=== PATIENT | female | born 1935 | race Caucasian/White ===

== ENCOUNTER 2019-10-06 11:59 | Observation (INO) | payer MEDICARE, OTHER ==
[~2019-10-06] VITALS: Ht 160 cm; Wt 58.0 kg
--- OUTSIDE RECORDS SUMMARY | ~2019-10-06 | XMS | Clinical Summary ---
Demographics + + + | Address | [address] | | | [place] [address] | + + + | Home Phone | | + + + | Preferred Language | Unknown | + + + | Marital Status | Unknown | + + + | Anabaptism Affiliation | Unknown | + + + | Race | Unknown | + + + | Ethnic Group | Unknown | + + + Author + + + | Author | [facility] | | | and [place] | + + + | Organization | [facility] | | | and [place] | + + + | Address | Unknown | + + + | Phone | Unavailable | + + + Care Team Providers + +------+ + | Care Electrical Project Manager Name | Role | Phone | + +------+ + | Johnny Jones DO | YULIYA | | + +------+ + Allergies Not on File Medications Not on file Active Problems Not on file Social History + +-------+ +--------+------+ | Tobacco Use | Types | Packs/Day | Years | Date | | | | | Used | | + +-------+ +--------+------+ | Never Smoker | | | | | + +-------+ +--------+------+ + + + | Sex Assigned at | Date Recorded | | | | + + + | Not on file | | + + + + + + + | Job Start Date | Occupation | Industry | + + + + | Not on file | Not on file | Not on file | + + + + + + + + | Travel History | Travel Start | Travel End | + + + + + + | No recent travel history available. | + + Last Filed Vital Signs Not on file Plan of Treatment + + + + + | Health Maintenance | Due Date | Last Done | Comments | + + + + + | Vaccine: | | | | | Dtap/Tdap/Td (1 - | 6 | | | | Tdap) | | | | + + + + + | Vaccine: Zoster (1 | | | | | of 2) | 5 | | | + + + + + | Vaccine: | | | | | Pneumococcal 65+ (1 | 0 | | | | of 2 - PCV13) | | | | + + + + + | Vaccine: Influenza | | | | | (Season Ended) | 0 | | | + + + + + Results Not on filefrom Last 3 Months"
--- OUTSIDE RECORDS SUMMARY | ~2019-10-06 | XMS | Encounter Summary ---
Demographics + + + | Address | [address] | | | [place] [address] | + + + | Home Phone | | + + + | Preferred Language | Unknown | + + + | Marital Status | Unknown | + + + | Synagogue Affiliation | Unknown | + + + | Race | Unknown | + + + | Ethnic Group | Unknown | + + + Author + + + | Author | [facility] | | | and Bryceana | + + + | Organization | [facility] | | | and Bryceana | + + + | Address | Unknown | + + + | Phone | Unavailable | + + + Care Team Providers + +------+ + | Care Gang Head Saw Operator Name | Role | Phone | + +------+ + PCP | Unavailable | + +------+ + Encounter Details +--------+ + + + + | Date | Type | Department | Care Team | Description | +--------+ + + + + | 09/26/ | Hospital | [facility] | Galdino Almonte | Chest pain; Elevated | | 2013 - | Encounter | [facility] | Cuauhtemoc Armas MD [address] | troponin; | | | | CLINICAL DECISION | [address] | Hypokalemia; | | 09/27/ | | [address] | [place] [address] | Bilateral pleural | | 2013 | | [place], [place] | [phone] | effusion; Elevated | | | | [id number] | | LFTs; Hypertension; | | | | [phone] | | Hyperlipidemia; | | | | | | Hypothyroidism | +--------+ + + + + Social History + +-------+ +--------+------+ | Tobacco [...] recent travel history available. | + + documented as of this encounter Discharge Summaries Marvel Hemphill MD - 09/27/2013 5:25 PM PDTFormatting of this note might be differe nt from the original. Discharge Summaries by Marvel Hemphill MD at 09/27/13 1598 Author: Marvel Hemphill MD Service: Hospitalist Author Type: Physician Filed: 09/30/131849 Date of Service: 09/27/131724 Status: Signed [employer] Press Operator: Marvel Hemphill MD (Physician) Related Notes: Original Note by Marvel Hemphill MD (Physician) filed at 09/27/13 17 31 [facility] Service: Hospitalist Physician Discharge Summary Pt: Akua Brizuela AGE/SEX: 78 y.o. female ROOM: [address] [place], [place] [address] PCP: KASI WEST : 1935 Admit date: 09/26/2013 Discharge date and time: 09/27/2013 Admitting Physician: Galdino Almonte MD Discharge Physician: Marvel Hemphill MD Consults: Primary Discharge Diagnoses: Hypokalemia [276.8] Hyperlipidemia [272.4] Chest pain [786.50] Hypothyroidism [244.9] Hypertension [401.9] Elevated troponin [790.6] Elevated LFTs [790.6] Bilateral pleural effusion [511.9] Secondary Discharge Diagnoses: Troponin leak. Chronic LBBB Discharged Condition: stable Significant Diagnostic Studies: Nuclear Medicine: Negative for ischemia. HPI and Hospital Course: Ms. Brizuela is a very pleasant 78-year-old female who has history of hypothyroidism, hype rtension, hyperlipidemia, was initially admitted to [facility] for Escherichia col i sepsis due to pyelonephritis. She was also diagnosed as having pneumonia. Patient was disc harged yesterday from the hospital after she stayed for 5 days. Yesterday while at home, she was eating yogurt and started having chest pain. She went to [facility] emergency department of [facility], where she was found to have elevated tropon in of 0.58 and EKG showed chronic left bundle branch block. CT of chest was also done that w as negative for pulmonary embolism or pneumonia. As [facility], hence patient was transferred and [facility]. HOSPITAL COURSE Patient remained chest pain free, and her troponin showed downward trend. EKG also showed l eft bundle branch block, but according to patient it was chronic in nature. She underwent nu clear medicine stress test today that did not show any evidence of ischemia. Echocardiogram was also done. That report is pending at the time of discharge, but patient does not have an y evidence of congestive heart failure or valvular heart disease on physical examination. As patient is stable now, hence she will be discharged home to be followed by her primary care physician next Wednesday. Borderline elevation of troponin was thought to be due to troponin l eak and not due to IA. Patient has history of hypertension and hyperlipidemia, but somehow her antihypertensives a nd anticholesterol medications were discontinued while she was at [facility]. I sutton ve advised her to follow her primary care physician for those problems and he may resume her regular medications for blood pressure and for high cholesterol. I have advised her to cont inue with low-dose aspirin. Discharge Vitals: Filed Vitals: 09/26/13 2259 09/27/13 0305 09/27/13 1133 09/27/13 1613 BP: 146/70 142/71 135/65 168/81 Pulse: 72 76 70 85 Temp: 98.6 F (37 C) 98.6 F (37 C) 98.8 F (37.1 C) 98.8 F (37.1 C) TempSrc: Oral Oral Oral Oral Resp: 18 16 16 18 Height: Weight: SpO2: 92% 91% 94% 96% Discharge Exam: Constitutional: Alert and oriented to person, place, and time. Appears well-developed and w ell-nourished. Cardiovascular: Normal rate, regular rhythm, normal heart sounds with S1 and S2 and intact distal pulses. Exam reveals no gallop and no friction rub. No murmur heard. Pulmonary/Chest: Effort normal and breath sounds normal. No stridor. No respiratory distres s. no wheezes. no rales. exhibits no tenderness. Abdominal: Soft. Bowel sounds are normal. exhibits no distension and no mass. There is no t enderness. There is no rebound and no guarding. Musculoskeletal: Normal range of motion.exhibits no tenderness. exhibits no edema. Neurological: Alert and oriented to person, place, and time. Has normal reflexes. display s normal reflexes. No cranial nerve deficit. Exhibits normal muscle tone. Coordination norm al. Skin: Skin is warm and dry. No rash noted. No erythema. No pallor. Psychiatric: Has a normal mood and affect. Behavior is normal. Judgment normal. LABS: Lab 09/27/13 0509/26/13 1310 WBC 10.8 10.3 HGB 11.4 12.2 HCT 32.3* 36.4 PLT 306 339 NEUTOPHILPCT 85.0 82.6 MONOPCT 6.4 4.8 Lab 09/27/13 0520 09/26/13 1310 NA 139 141 K 3.4* 3.2* CL 105 105 CO2 27 25 BUN 8 8 CREATININE 0.92 0.96 CALCIUM -- -- PROT -- 6.7 BILITOT -- 0.5 ALKPHOS -- -- ALT -- 103* AST -- 57* GLUCOSE -- -- No components found with this basename: LABALBU:3 Lab 09/27/13 0520 09/26/13 1310 MG 1.8 2.7* No results found for this basename: AMYLASE:3 in the last 168 hours No results found for this basename: PHART:3,PO2ART:3,UIN2BYT:3,C0KTYRRD:3,BEART:[address] 168 hours Lab 09/27/13 0520 09/26/13 1310 APTT 28 33* INR 1.1 1.1 PTT -- -- Lab 09/27/13 0745 09/27/13 0021 09/26/13 1310 CKTOTAL -- -- 79 TROPONINI 0.098 0.149* 0.226* TROPONINT -- -- -- CKMBINDEX -- -- 4.2 Disposition: Final discharge disposition not confirmed Patient Instructions: Medication List As of 09/27/2013 5:25 PM CONTINUE taking these medications alendronate 70 MG tablet Refills: 0 Commonly known as: FOSAMAX ascorbic acid 500 MG tablet Refills: 0 Commonly known as: VITAMIN C aspirin 81 MG EC tablet Refills: 0 B complex vitamins tablet Refills: 0 cephALEXin 500 MG capsule Refills: 0 Commonly known as: KEFLEX Cholecalciferol 26841 UNITS Tabs Refills: 0 fish oil-omega-3 fatty acids 1000 MG capsule Refills: 0 levothyroxine 50 MCG tablet Refills: 0 Commonly known as: SYNTHROID multivitamin tablet Refills: 0 Activity: activity as tolerated Diet: cardiac diet Wound Care: not applicable Total time of discharge: 35 minutes. This included talking to patient, examining patient, d iscussing outpatient plan of care, reconciling home medications and dictating discharge summ payton. Follow-up with PCP in 5 days Signed: Marvel Hemphill MD 09/27/2013 5:25 PM documented in this encounter Progress Notes Conversion Transaction, Provider Unknown - 09/27/2013 5:53 PM PDTFormatting of this note m ight be different from the original. Progress Notes by Catherine Moncada RN at 09/27/131752 Author: Catherine Moncada RN Service: (none) Author Type: Registered Nurse Filed: 09/27/13 8264 Date of Service: 09/27/131752 Status: Signed [employer] Operator: Catherine Moncada RN (Registered Nurse) D/c instructions given and discussed, pt. States understanding. daughter providing transpor tation home. Pt. To f/u with pcp on Wednesday. Catherine Moncada RN onver deborah Transaction, Provider Unknown - 09/27/2013 2:53 PM PDT Case Management by GIN Suh at 09/27/13 2272 Author: GIN Suh Service: (none) Author Type: Hand Ii Cutter Filed: 09/27/13 5104 Date of Service: 09/27/13 1453 Status: Signed [employer] Operator: GIN Suh (Hand Ii Cutter) 09/27/13 1400 Discharge Planning Evaluation Admitting Diagnosis (Atypical chest pain) Readmission No Living Arrangements Spouse/significant other Support Systems Spouse/significant other Type of Residence Private residence House type House-1 story Steps to enter 5 Bathrooms on 1st Floor 1-Full Independent with ADL's Yes Independent with Mobility Yes Home Care Services No Caregiver after Discharge No Mental Status Oriented Anticipated Discharge Plan Plan communicated to patient/family Yes Resources Financial concerns No Transportation issues No Patient/Family concerns No Prescription Plan Yes Met with pt and discussed discharge planning, Pt is a 78 y.o., female admitted with Atypic al chest pain. Will continue to provide care as needed and plan for DC. Patient's PCP is: KASI WEST Patient's insurance: Medicare. Coverage concerns: No Medication coverage/concerns: No Community resources utilized / needed: No Assistance in transportation: Pt's SO will assist transporting pt home. Identification of any specific education / training: N/A Barriers to Discharge / Alternative housing needed: N/A Anticipated DCP: Pt will return to [place] prior living [place] with SO. Suma Jeter onver deborah Transaction, Provider Unknown - 09/26/2013 8:16 PM PDT Progress Notes by Mirella Currie RPH at 09/26/132015 Author: Mirella Currie RPH Service: (none) Author Type: Pharmacist Filed: 09/26/132015 Date of Service: 09/26/132015 Status: Signed [employer] Operator: Mirella Currie RPH (Pharmacist) Clinical Pharmacy Note: Renal Monitoring Akua Brizuela 78 y.o. female Ht Readings from Last 1 Encounters: 09/26/13 1.6 m (5' 3") Wt Readings from Last 1 Encounters: 09/26/13 54.432 kg (120 lb) CREATININE: 0.96 (09/26/13 1310) Estimated creatinine clearance - Cockcroft-Gault CrCl: 39.3 mL/min Pharmacy dosing for renal function per Dr. Almonte. Will order the following dosage adjustments: Pepcid 20 mg IV/PO Q24H Pharmacy will continue to monitor for changes in medication orders and in renal function an d adjust accordingly. Mirella Currie RPh 09/26/2013 8:16 PM onver deborah Transaction, Provider Unknown - 09/26/2013 7:06 PM PDT Case Management by GIN Monteiro at 09/26/131905 Author: GIN Monteiro Service: (none) Author Type: Weigher And Mixer Filed: 09/26/131905 Date of Service: 09/26/131905 Status: Signed [employer] Operator: GIN Monteiro (Weigher And Mixer) Cm attempted to meet with patient; pt asleep and unable to answer questions. F/U with famil y when they are back at hospital. onver deborah Transaction, Provider Unknown - 09/26/2013 3:43 PM PDT Progress Notes by Mirella Currie RPH at 09/26/13 1543 Author: Mirella Currie RPH Service: (none) Author Type: Pharmacist Filed: 09/26/13 154 Date of Service: 09/26/131542 Status: Signed [employer] Operator: Mirella Currie RPH (Pharmacist) Clinical Pharmacy Note: Renal Monitoring Akua Brizuela 78 y.o. female Ht Readings from Last 1 Encounters: 09/26/13 1.6 m (5' 3") Wt Readings from Last 1 Encounters: 09/26/13 54.432 kg (120 lb) CREATININE: 0.96 (09/26/13 1310) Estimated creatinine clearance - Cockcroft-Gault CrCl: 39.3 mL/min Pharmacy dosing for renal function per Dr. Cordon. Currently, there are no medications needing to be adjusted. Pharmacy will continue to monit or for changes in medication orders and in renal function and adjust accordingly. Mirella Currie RPh 09/26/2013 3:43 PM docume nted in this encounter Plan of Treatment Not on filedocumented as of this encounter Procedures + +--------+ + + + | Procedure Name | Priori | Date/Time | Associated Diagnosis | Comments | | | ty | | | | + +--------+ + + + | NM MYOCARDIAL | Routin | 09/27/2013 | | Results for this | | PERFUSION MULT SPECT | e | 4:07 PM | | procedure are in the | | | | PDT | | results section. | + +--------+ + + + | TROPONIN I | Routin | 09/27/2013 | | Results for this | | | e | 7:45 AM | | procedure are in the | | | | PDT | | results section. | + +--------+ + + + | ECG 12 LEAD | Routin | 09/27/2013 | | Results for this | | | e | 7:36 AM | | procedure are in the | | | | PDT | | results section. | + +--------+ + + + | ECHO COMPLETE | Routin | 09/27/2013 | | Results for this | | | e | 7:09 AM | | procedure are in the | | | | PDT | | results section. | + +--------+ + + + | EXTERNAL LAB: CBC | Routin | 09/27/2013 | | Results for this | | | e | 5:20 AM | | procedure are in the | | | | PDT | | results section. | + +--------+ + + + | PTT | Routin | 09/27/2013 | | Results for this | | | e | 5:20 AM | | procedure are in the | | | | PDT | | results section. | + +--------+ + + + | PROTIME INR | Routin | 09/27/2013 | | Results for this | | | e | 5:20 AM | | procedure are in the | | | | PDT | | results section. | + +--------+ + + + | PHOSPHORUS | Routin | 09/27/2013 | | Results for this | | | e | 5:20 AM | | procedure are in the | | | | PDT | | results section. | + +--------+ + + + | MAGNESIUM | Routin | 09/27/2013 | | Results for this | | | e | 5:20 AM | | procedure are in the | | | | PDT | | results section. | + +--------+ + + + | BASIC METABOLIC | Routin | 09/27/2013 | | Results for this | | PANEL | e | 5:20 AM | | procedure are in the | | | | PDT | | results section. | + +--------+ + + + | TROPONIN I | Routin | 09/27/2013 | | Results for this | | | e | 12:21 AM | | procedure are in the | | | | PDT | | results section. | + +--------+ + + + | XR CHEST 1 VIEW | Routin | 09/26/2013 | | Results for this | | | e | 10:44 PM | | procedure are in the | | | | PDT | | results section. | + +--------+ + + + | URINALYSIS, REFLEX | Routin | 09/26/2013 | | Results for this | | MICROSCOPIC AND/OR | e | 9:54 PM | | procedure are in the | | CULTURE | | PDT | | results section. | + +--------+ + + + | URINALYSIS, | Routin | 09/26/2013 | | Results for this | | MICROSCOPIC ONLY | e | 9:54 PM | | procedure are in the | | | | PDT | | results section. | + +--------+ + + + | CT ANGIOGRAM | Routin | 09/26/2013 | | Results for this | | PULMONARY | e | 2:30 PM | | procedure are in the | | | | PDT | | results section. | + +--------+ + + + | ECG 12 LEAD | Routin | 09/26/2013 | | Results for this | | | e | 1:12 PM | | procedure are in the | | | | PDT | | results section. | + +--------+ + + + | HISTORICAL LAB PANEL | Routin | 09/26/2013 | | Results for this | | RESULT | e | 1:10 PM | | procedure are in the | | | | PDT | | results section. | + +--------+ + + + | TROPONIN I | Routin | 09/26/2013 | | Results for this | | | e | 1:10 PM | | procedure are in the | | | | PDT | | results section. | + +--------+ + + + | D-DIMER | Routin | 09/26/2013 | | Results for this | | | e | 1:10 PM | | procedure are in the | | | | PDT | | results section. | + +--------+ + + + | PHOSPHORUS | Routin | 09/26/2013 | | Results for this | | | e | 1:10 PM | | procedure are in the | | | | PDT | | results section. | + +--------+ + + + | B TYPE NATRIURETIC | Routin | 09/26/2013 | | Results for this | | PEPTIDE | e | 1:10 PM | | procedure are in the | | | | PDT | | results section. | + +--------+ + + + | MAGNESIUM | Routin | 09/26/2013 | | Results for this | | | e | 1:10 PM | | procedure are in the | | | | PDT | | results section. | + +--------+ + + + documented in this encounter Results NM Myocardial Perfusion Mult SPECT (09/27/2013 4:07 PM PDT) + + | Specimen | + + | | + + + + + | Impressions | Performed At | + + + | 1. No evidence of ischemia with pharmacologic stress. | | | | | + + + + + + | Narrative | Performed At | + + + | AKUA SCHMID MYOCARDIAL PERFUSION SPECT - STRESS AND REST | | | 09/27/2013 4:07 PM HISTORY: Chest pain. TECHNIQUE: The | | | patient was given pharmacologic stress with Amy scan under the | | | direction of the mid-level provider. At peak stress there are given 40 | | | mCi of technetium 99m Myoview IV and that was followed by cardiac | | | SPECT imaging. Prior to the stress test a resting cardiac SPECT | | | study was performed following the IV administration of 10 mCi of | | | technetium 99m Myoview. FINDINGS: No prior comparison. The | | | estimated left ventricular ejection fraction is 54% at rest and 60% | | | with stress. There is mildly heterogeneous uptake without suspicious | | | fixed or reversible defect. | | + + + + -------+ | Procedure Note | + -------+ | Mike Pollock Conversion - 12/16/2018 3:38 PM PDT AKUA GOLD MYOCARDIAL | | PERFUSION SPECT - STRESS AND REST09/27/2013 4:07 PM HISTORY:Chest pain. TECHNIQUE:The | | patient was given pharmacologic stress with Amy scan under the direction of the | | mid-level provider. At peak stress there are given 40 mCi of technetium 99m Myoview IV | | and that was followed by cardiac SPECT imaging. Prior to the stress test a resting | | cardiac SPECT study was performed following the IV administration of 10 mCi of | | technetium 99m Myoview. FINDINGS:No prior comparison. The estimated left ventricular | | ejection fraction is 54% at rest and 60% with stress. There is mildly heterogeneous | | uptake without suspicious fixed or reversible defect. IMPRESSION: 1. No evidence of | | ischemia with pharmacologic stress. Electronically signed by Ronny Marino MD on | | 09/27/2013 4:20 PM | | | |FINDINGS: | |No prior comparison. The estimated left ventricular ejection fraction is 54% at rest and 60 % with stress. There is mildly heterogeneous uptake without suspicious fixed or reversible d efect. | | | |IMPRESSION: | |1. No evidence of ischemia with pharmacologic stress. | | | | | + -------+ Troponin I (09/27/2013 7:45 AM PDT) + + + + + + | Component | Value | Ref Range | Performed | Pathologist | | | | | At | Signature | + + + + + + | Troponin I, | 0.098Comment: 0.00 to | 0.00 - 0.10 | EXTERNAL | | | Qual | 0.10 CONSISTENT WITH | ng/mL | LAB | | | | NORMAL POPULATION0.11 to | | | | | | 0.60 CONSISTENT WITH | | | | | | INCREASED RISK FOR | | | | | | ADVERSE OUTCOMES> 0.60 | | | | | | CONSISTENT | | | | | | WITH WHO CRITERIA FOR | | | | | | ACUTE IA Testing | | | | | | performed at [facility];[id number] | | | [address];[place], [place] | | | | | | [address] | | | | + + + + + + + + | Specimen | + + | Blood specimen | | (specimen) | + + + +---------+ + + | Performing | Address | City/State/Zipcode | Phone Number | | Organization | | | | + +---------+ + + | EXTERNAL LAB | | | | + +---------+ + + ECG 12 lead (09/27/2013 7:36 AM PDT) + + + + + + | Component | Value | Ref Range | Performed | Pathologist | | | | | At | Signature | + + + + + + | DIAGNOSIS: | Normal sinus rhythmLeft | | EXTERNAL | | | | bundle branch | | LAB | | | | blockAbnormal ECGWhen | | | | | | compared with ECG of | | | | | | 26-SEP-2013 13:12,QT has | | | | | | shortenedConfirmed by | | | | | | DELROY JENSEN ([id number]) on | | | | | | 09/29/2013 8:08:06 PM | | | | + + + + + + + + | Specimen | + + | | + + + + + | Narrative | Performed At | + + + | Historically converted procedure from [employer] environment | EXTERNAL LAB | + + + + +---------+ + + | Performing | Address | City/State/Zipcode | Phone Number | | Organization | | | | + +---------+ + + | EXTERNAL LAB | | | | + +---------+ + + ECHO Complete (09/27/2013 7:09 AM PDT) + + | Specimen | + + | | + + + + + | Impressions | Performed At | + + + | 1. Overall left ventricular systolic function is normal with, an EF | | | between 55 - 60 %. 2. The diastolic filling pattern indicates | | | impaired relaxation consistent with mild dysfunction (Grade I). 3. | | | There is no evidence of pulmonary hypertension. | | + + + + + + | Narrative | Performed At | + + + | Patient Name: AKUA BRIZUELA Date of : 1935 | | | Performing Physician: Delroy Jensen MD | | | | | | INDICATIONS abnormal ekg CONCLUSIONS | | | 1. Overall left ventricular systolic function is normal with, an EF | | | between 55 - 60 %. 2. The diastolic filling pattern indicates | | | impaired relaxation consistent with mild dysfunction (Grade I). 3. | | | There is no evidence of pulmonary hypertension. FINDINGS -------- | | | ECG rhythm: Sinus rhythm. Study: A 2-dimensional transthoracic | | | echocardiogram with m-mode, spectral and color flow Doppler was | | | perfomed. Study: This was a technically adequate study. Left | | | Ventricle: Overall left ventricular systolic function is normal with, | | | an EF between 55 - 60 %. Left Ventricle: The left ventricle cavity | | | size is normal. Left Ventricle: There is mild concentric left | | | ventricular hypertrophy. Left Ventricle: No regional wall motion | | | abnormalities. Left Ventricle: The diastolic filling pattern | | | indicates impaired relaxation consistent with mild dysfunction (Grade | | | I). Right Ventricle: The right ventricle is normal in size. Left | | | Atrium: The left atrial size is normal. Right Atrium: The right | | | atrial size is normal. Aortic Valve: Aortic valve is trileaflet and | | | is mildly thickened. Aortic Valve: There is mild aortic valve | | | sclerosis without stenosis. Aortic Valve: Trace amount of aortic | | | regurgitation. Mitral Valve: The mitral valve is normal. Mitral | | | Valve: There is trace mitral regurgitation. Tricuspid Valve: The | | | tricuspid valve appears structurally normal. Tricuspid Valve: Mild | | | tricuspid regurgitation present. Tricuspid Valve: There is no | | | evidence of pulmonary hypertension. Tricuspid Valve: The right | | | ventricular systolic pressure (pulmonary artery systolic pressure), as | | | measured by Doppler, is 26.28mmHg. Pulmonic Valve: The pulmonic | | | valve was not well visualized. Pulmonic Valve: Trace pulmonic | | | regurgitation. Pericardium: There is a small , generalized | | | pericardial effusion present. IVC/Hepatic Veins: The IVC is small | | | (<1.5cm) and collapses with sniff, consistent with central venous | | | pressures of 0-5mmHg. Aorta: The aortic root, ascending aorta are | | | normal. Pulmonary Veins: The flow patterns, measured by Doppler, | | | appear normal. Septum: Mobile interatrial septum. MEASUREMENTS | | | Ao asc: 3.10 cm Ao Diam: 2.92 cm IVC: 1.52 | | | cm LA Diam: 3.44 cm LA Major: 3.72 cm EDV(Teich): 52.96 ml | | | IVSd: 1.06 cm LVIDd: 3.55 cm LVPWd: 1.23 cm LVOT Diam: | | | 1.92 cm %FS: 31.14 % EF(Teich): 59.90 % ESV(Teich): | | | 21.23 ml IVSs: 1.17 cm LVIDs: 2.45 cm LVPWs: 1.52 cm | | | SV(Teich): 31.72 ml RA Major: 4.11 cm RVIDd: 2.82 cm LVEF | | | MOD A2C: 60.07 % SV MOD A2C: 37.58 ml LVEF MOD A4C: 55.74 % | | | SV MOD A4C: 41.44 ml EF Biplane: 57.84 % LVEDV MOD BP: | | | 69.04 ml LVESV MOD BP: 29.10 ml LVEDV MOD A2C: 62.55 ml LVLd | | | A2C: 6.95 cm LVEDV MOD A4C: 74.35 ml LVLd A4C: 6.71 cm | | | LVESV MOD A2C: 24.97 ml LVLs A2C: 5.99 cm LVESV MOD A4C: | | | 32.90 ml LVLs A4C: 5.59 cm Ao Diam: 2.97 cm AV Cusp: 1.85 | | | cm LA Diam: 3.21 cm LA/Ao: 1.08 D-E Excursion: 1.18 cm | | | E-F Mobile: 0.03 m/s EPSS: 0.36 cm HR: 68 BPM AV maxPG: | | | 7.05 mmHg AV meanP.51 mmHg AV Vmax: 1.32 m/s AV Vmean: | | | 1.02 m/s AV VTI: 30.57 cm LAURIE Vmax: 2.69 cm2 LAURIE (VTI): | | | 2.43 cm2 LVCI Dopp: 3.22 l/minm2 LVCO Dopp: 5.09 l/min HR: | | | 68.53 BPM LVOT maxP.07 mmHg LVOT meanP.11 mmHg LVSI | | | Dopp: 47.03 ml/m2 LVSV Dopp: 74.31 ml LVOT Vmax: 1.23 m/s | | | LVOT Vmean: 0.82 m/s LVOT VTI: 25.58 cm MCO: 539.79 ms MV | | | A Jonathan: 1.04 m/s MV DecT: 193.27 ms MV E Jonathan: 0.50 m/s MV | | | E/A Ratio: 0.48 MV PHT: 53.72 ms MVA By PHT: 4.09 cm2 MV A | | | Dur: 103.80 ms IVRT: 176.47 ms Septal e': 0.03 m/s Septal | | | E/e': 14.72 P Vein A: 0.35 m/s P Vein A Dur: 96.88 ms P | | | Vein D: 0.54 m/s P Vein S/D Ratio: 1.14 P Vein S: 0.62 m/s | | | HR: 69.55 BPM PV maxP.13 mmHg PV meanP.56 mmHg PV | | | Vmax: 0.88 m/s PV Vmean: 0.60 m/s PV VTI: 19.95 cm RAP: | | | 5 mmHg RVSP: 26.27 mmHg TR maxP.27 mmHg TR Vmax: | | | 2.30 m/s TV A Jonathan: 0.20 m/s TV Dec Mobile: 4.63 m/s2 TV Dec | | | Time: 81.78 ms TV E Jonathan: 0.37 m/s TV E/A Ratio: 1.85 | | | Contour Stitcher: EDILMA Authenticated by: Delroy Jensen MD Report Date/Time: | | | 09-28-2013 06:23:05 | | + + + + + | Procedure Note | + + | Mike Pollock Conversion - 12/16/2018 3:38 PM PDT Patient Name: Anuja BRIZUELA | | of : 1935 Performing Physician: Delroy Jensen | | MD INDICATIONS a | | bnormal ekg CONCLUSIONS 1. Overall left ventricular systolic function is | | normal with, an EF between 55 - 60 %.2. The diastolic filling pattern indicates impaired | | relaxation consistent with mild dysfunction (Grade I).3. There is no evidence of | | pulmonary hypertension. FINDINGS--------ECG rhythm: Sinus rhythm.Study: A 2-dimensional | | transthoracic echocardiogram with m-mode, spectral and color flow Doppler was | | perfomed.Study: This was a technically adequate study.Left Ventricle: Overall left | | ventricular systolic function is normal with, an EF between 55 - 60 %.Left Ventricle: | | The left ventricle cavity size is normal.Left Ventricle: There is mild concentric left | | ventricular hypertrophy.Left Ventricle: No regional wall motion abnormalities.Left | | Ventricle: The diastolic filling pattern indicates impaired relaxation consistent with | | mild dysfunction (Grade I).Right Ventricle: The right ventricle is normal in size.Left | | Atrium: The left atrial size is normal.Right Atrium: The right atrial size is | | normal.Aortic Valve: Aortic valve is trileaflet and is mildly thickened.Aortic Valve: | | There is mild aortic valve sclerosis without stenosis.Aortic Valve: Trace amount of | | aortic regurgitation.Mitral Valve: The mitral valve is normal.Mitral Valve: There is | | trace mitral regurgitation.Tricuspid Valve: The tricuspid valve appears structurally | | normal.Tricuspid Valve: Mild tricuspid regurgitation present.Tricuspid Valve: There is | | no evidence of pulmonary hypertension.Tricuspid Valve: The right ventricular systolic | | pressure (pulmonary artery systolic pressure), as measured by Doppler, is | | 26.28mmHg.Pulmonic Valve: The pulmonic valve was not well visualized.Pulmonic Valve: | | Trace pulmonic regurgitation.Pericardium: There is a small , generalized pericardial | | effusion present.IVC/Hepatic Veins: The IVC is small (<1.5cm) and collapses with sniff, | | consistent with central venous pressures of 0-5mmHg.Aorta: The aortic root, ascending | | aorta are normal.Pulmonary Veins: The flow patterns, measured by Doppler, appear | | normal.Septum: Mobile interatrial septum. MEASUREMENTS Ao asc: 3.10 cmAo | | Diam: 2.92 cmIVC: 1.52 cmLA Diam: 3.44 cmLA Major: 3.72 cmEDV(Teich): 52.96 | | mlIVSd: 1.06 cmLVIDd: 3.55 cmLVPWd: 1.23 cmLVOT Diam: 1.92 cm%FS: 31.14 | | %EF(Teich): 59.90 %ESV(Teich): 21.23 mlIVSs: 1.17 cmLVIDs: 2.45 cmLVPWs: 1.52 | | cmSV(Teich): 31.72 mlRA Major: 4.11 cmRVIDd: 2.82 cmLVEF MOD A2C: 60.07 %SV MOD | | A2C: 37.58 mlLVEF MOD A4C: 55.74 %SV MOD A4C: 41.44 mlEF Biplane: 57.84 %LVEDV | | MOD BP: 69.04 mlLVESV MOD BP: 29.10 mlLVEDV MOD A2C: 62.55 mlLVLd A2C: 6.95 | | cmLVEDV MOD A4C: 74.35 mlLVLd A4C: 6.71 cmLVESV MOD A2C: 24.97 mlLVLs A2C: 5.99 | | cmLVESV MOD A4C: 32.90 mlLVLs A4C: 5.59 cmAo Diam: 2.97 cmAV Cusp: 1.85 cmLA | | Diam: 3.21 cmLA/Ao: 1.08D-E Excursion: 1.18 cmE-F Mobile: 0.03 m/sEPSS: 0.36 | | cmHR: 68 BPMAV maxP.05 mmHgAV meanP.51 mmHgAV Vmax: 1.32 m/Eduardo Vmean: | | 1.02 m/Eduardo VTI: 30.57 cmAVA Vmax: 2.69 cm2AVA (VTI): 2.43 [id number] Dopp: 3.22 | | l/[id number] Dopp: 5.09 l/minHR: 68.53 BPMLVOT maxP.07 mmHgLVOT meanP.11 | | mmHgLVSI Dopp: 47.03 ml/m2LVSV Dopp: 74.31 mlLVOT Vmax: 1.23 m/sLVOT Vmean: 0.82 | | m/sLVOT VTI: 25.58 cmMCO: 539.79 msMV A Jonathan: 1.04 m/sMV DecT: 193.27 msMV E | | Jonathan: 0.50 m/sMV E/A Ratio: 0.48MV PHT: 53.72 msMVA By PHT: 4.09 cm2MV A Dur: | | 103.80 msIVRT: 176.47 msSeptal e': 0.03 m/sSeptal E/e': 14.72P Vein A: 0.35 m/sP | | Vein A Dur: 96.88 msP Vein D: 0.54 m/sP Vein S/D Ratio: 1.14P Vein S: 0.62 | | m/sHR: 69.55 BPMPV maxP.13 mmHgPV meanP.56 mmHgPV Vmax: 0.88 m/sPV | | Vmean: 0.60 m/sPV VTI: 19.95 cmRAP: 5 mmHgRVSP: 26.27 mmHgTR maxP.27 | | mmHgTR Vmax: 2.30 m/sTV A Jonathan: 0.20 m/sTV Dec Mobile: 4.63 m/s2TV Dec Time: 81.78 | | msTV E Jonathan: 0.37 m/sTV E/A Ratio: 1.85 Contour Stitcher: GDAuthenticated by: Delroy | | Alqaisi MDReport Date/Time: 09-28-2013 06:23:05 IMPRESSION: 1. Overall left ventricular | | systolic function is normal with, an EF between 55 - 60 %.2. The diastolic filling | | pattern indicates impaired relaxation consistent with mild dysfunction (Grade I).3. | | There is no evidence of pulmonary hypertension. | |LA Diam: 3.44 cm | |LA Major: 3.72 cm | |EDV(Teich): 52.96 ml | |IVSd: 1.06 cm | |LVIDd: 3.55 cm | |LVPWd: 1.23 cm | |LVOT Diam: 1.92 cm | |%FS: 31.14 % | |EF(Teich): 59.90 % | |ESV(Teich): 21.23 ml | |IVSs: 1.17 cm | |LVIDs: 2.45 cm | |LVPWs: 1.52 cm | |SV(Teich): 31.72 ml | |RA Major: 4.11 cm | |RVIDd: 2.82 cm | |LVEF MOD A2C: 60.07 % | |SV MOD A2C: 37.58 ml | |LVEF MOD A4C: 55.74 % | |SV MOD A4C: 41.44 ml | |EF Biplane: 57.84 % | |LVEDV MOD BP: 69.04 ml | |LVESV MOD BP: 29.10 ml | |LVEDV MOD A2C: 62.55 ml | |LVLd A2C: 6.95 cm | |LVEDV MOD A4C: 74.35 ml | |LVLd A4C: 6.71 cm | |LVESV MOD A2C: 24.97 ml | |LVLs A2C: 5.99 cm | |LVESV MOD A4C: 32.90 ml | |LVLs A4C: 5.59 cm | |Ao Diam: 2.97 cm | |AV Cusp: 1.85 cm | |LA Diam: 3.21 cm | |LA/Ao: 1.08 | |D-E Excursion: 1.18 cm | |E-F Mobile: 0.03 m/s | |EPSS: 0.36 cm | |HR: 68 BPM | |AV maxP.05 mmHg | |AV meanP.51 mmHg | |AV Vmax: 1.32 m/s | |AV Vmean: 1.02 m/s | |AV VTI: 30.57 cm | |LAURIE Vmax: 2.69 cm2 | |LAURIE (VTI): 2.43 cm2 | |LVCI Dopp: 3.22 l/minm2 | |LVCO Dopp: 5.09 l/min | |HR: 68.53 BPM | |LVOT maxP.07 mmHg | |LVOT meanP.11 mmHg | |LVSI Dopp: 47.03 ml/m2 | |LVSV Dopp: 74.31 ml | |LVOT Vmax: 1.23 m/s | |LVOT Vmean: 0.82 m/s | |LVOT VTI: 25.58 cm | |MCO: 539.79 ms | |MV A Jonathan: 1.04 m/s | |MV DecT: 193.27 ms | |MV E Jonathan: 0.50 m/s | |MV E/A Ratio: 0.48 | |MV PHT: 53.72 ms | |MVA By PHT: 4.09 cm2 | |MV A Dur: 103.80 ms | |IVRT: 176.47 ms | |Septal e': 0.03 m/s | |Septal E/e': 14.72 | |P Vein A: 0.35 m/s | |P Vein A Dur: 96.88 ms | |P Vein D: 0.54 m/s | |P Vein S/D Ratio: 1.14 | |P Vein S: 0.62 m/s | |HR: 69.55 BPM | |PV maxP.13 mmHg | |PV meanP.56 mmHg | |PV Vmax: 0.88 m/s | |PV Vmean: 0.60 m/s | |PV VTI: 19.95 cm | |RAP: 5 mmHg | |RVSP: 26.27 mmHg | |TR maxP.27 mmHg | |TR Vmax: 2.30 m/s | |TV A Jonathan: 0.20 m/s | |TV Dec Mobile: 4.63 m/s2 | |TV Dec Time: 81.78 ms | |TV E Jonathan: 0.37 m/s | |TV E/A Ratio: 1.85 | | | |Contour Stitcher: EDILMA | |Authenticated by: Delroy Jensen MD | |Report Date/Time: 09-28-2013 06:23:05 | | | |IMPRESSION: | |1. Overall left ventricular systolic function is normal with, an EF between 55 - 60 %. | |2. The diastolic filling pattern indicates impaired relaxation consistent with mild dysfunc tion (Grade I). | |3. There is no evidence of pulmonary hypertension. | + + PTT (09/27/2013 5:20 AM PDT) + + + + + + | Component | Value | Ref Range | Performed | Pathologist | | | | | At | Signature | + + + + + + | aPTT, | 28Comment: Testing | 23 - 32 seconds | EXTERNAL | | | Patient | performed at [facility];[address] | | LAB | | | | [facility];[place], [place] | | | | | | [address] | | | | + + + + + + + + | Specimen | + + | Blood specimen | | (specimen) | + + + +---------+ + + | Performing | Address | City/State/Zipcode | Phone Number | | Organization | | | | + +---------+ + + | EXTERNAL LAB | | | | + +---------+ + + Protime INR (09/27/2013 5:20 AM PDT) + + + + + + | Component | Value | Ref Range | Performed | Pathologist | | | | | At | Signature | + + + + + + | INR | 1.1Comment: REFERENCE | | EXTERNAL | | | | RANGE:0.9 - 1.2 | | LAB | | | | NON-ANTICOAGULATED2.0 | | | | | | - 3.0 ALL OTHER | | | | | | THERAPEUTIC | | | | | | INDICATIONS2.5 - 3.5 | | | | | | MECHANICAL HEART VALVES, | | | | | | RECURRENT OR SYSTEMIC | | | | | | EMBOLISMTesting | | | | | | performed at [facility] | | | | | | [facility];[place], [place] | | | | | | [address] | | | | + + + + + + + + | Specimen | + + | Blood specimen | | (specimen) | + + + +---------+ + + | Performing | Address | City/State/Zipcode | Phone Number | | Organization | | | | + +---------+ + + | EXTERNAL LAB | | | | + +---------+ + + External Lab: CBC (09/27/2013 5:20 AM PDT) + + + + + + | Component | Value | Ref Range | Performed | Pathologist | | | | | At | Signature | + + + + + + | WBC | 10.8Comment: Testing | 3.8 - 11.0 K/uL | EXTERNAL | | | | performed at [facility], [address] | | LAB | | | | [address], | | | | | | [place] [address] | | | | + + + + + + | Red Blood | 3.38 (L)Comment: Testing | 3.70 - 5.10 | EXTERNAL | | | Cells | performed at [facility], [address] | [address]/uL | LAB | | | Counted | [address], | | | | | | [place] [address] | | | | + + + + + + | Hemoglobin | 11.4Comment: Testing | 11.3 - 15.5 | EXTERNAL | | | | performed at [facility], [address] | g/dL | LAB | | | | [address], | | | | | | [place] [address] | | | | + + + + + + | Hematocrit, | 32.3 (L)Comment: Testing | 34.0 - 46.0 % | EXTERNAL | | | POC | performed at [facility], [address] | | LAB | | | | [address], | | | | | | [place] [address] | | | | + + + + + + | MCV | 95.4Comment: Testing | 80.0 - 100.0 fl | EXTERNAL | | | | performed at [facility], [address] | | LAB | | | | [address], | | | | | | [place] [address] | | | | + + + + + + | MCH | 33.6Comment: Testing | 27.0 - 34.0 pg | EXTERNAL | | | | performed at [facility], [address] | | LAB | | | | [address], | | | | | | [place] [address] | | | | + + + + + + | MCHC | 35.3Comment: Testing | 32.0 - 35.5 | EXTERNAL | | | | performed at [facility], [address] | g/dL | LAB | | | | [address], | | | | | | [place] [address] | | | | + + + + + + | RDW-CV | 47.3Comment: Testing | 37 - 53 fl | EXTERNAL | | | | performed at [facility], [address] | | LAB | | | | [address], | | | | | | [place] [address] | | | | + + + + + + | Platelet | 306Comment: Testing | 150 - 400 K/uL | EXTERNAL | | | Count | performed at [facility], [address] | | LAB | | | Plasma | [address], | | | | | | [place] [address] | | | | + + + + + + | MPV | 6.8Comment: Testing | fl | EXTERNAL | | | | performed at [facility], [address] | | LAB | | | | [address], | | | | | | [place] [address] | | | | + + + + + + | Differentia | AUTOMATEDComment: | | EXTERNAL | | | l Type | Testing performed at | | LAB | | | | [facility], [address] | | | | | | [place] | | | | | | [address] | | | | + + + + + + | % Segmented | 85.0Comment: Testing | % | EXTERNAL | | | | performed at [facility], [address] | | LAB | | | Neutrophils | [address], | | | | | | [place] [address] | | | | + + + + + + | % | 6.6Comment: Testing | % | EXTERNAL | | | Lymphocytes | performed at [facility], [address] | | LAB | | | | [address], | | | | | | [place] [address] | | | | + + + + + + | % Monocytes | 6.4Comment: Testing | % | EXTERNAL | | | | performed at [facility], [address] | | LAB | | | | [address], | | | | | | [place] [address] | | | | + + + + + + | % | 1.8Comment: Testing | % | EXTERNAL | | | Eosinophils | performed at [facility], [address] | | LAB | | | | [address], | | | | | | [place] [address] | | | | + + + + + + | % Basophils | 0.2Comment: Testing | % | EXTERNAL | | | | performed at [facility], [address] | | LAB | | | | [address], | | | | | | [place] [address] | | | | + + + + + + | Absolute | 9.2 (H)Comment: Testing | 1.9 - 7.4 K/uL | EXTERNAL | | | Segmented | performed at [facility], [address] | | LAB | | | Neutrophils | [address], | | | | | | [place] [address] | | | | + + + + + + | Absolute | 0.7 (L)Comment: Testing | 1.0 - 3.9 K/uL | EXTERNAL | | | Lymphocytes | performed at [facility], [address] | | LAB | | | | [address], | | | | | | [place] [address] | | | | + + + + + + | Absolute | 0.7Comment: Testing | 0 - 0.8 K/uL | EXTERNAL | | | Monocytes | performed at [facility], [address] | | LAB | | | | [address], | | | | | | [place] [address] | | | | + + + + + + | Absolute | 0.2Comment: Testing | 0 - 0.5 K/uL | EXTERNAL | | | Eosinophils | performed at [facility], [address] | | LAB | | | | [address], | | | | | | [place] [address] | | | | + + + + + + | Absolute | 0.0Comment: Testing | 0 - 0.1 K/uL | EXTERNAL | | | Basophils | performed at [facility], [address] | | LAB | | | [address], | | | | | | [place] [address] | | | | + + + + + + + + | Specimen | + + | Blood specimen | | (specimen) | + + + +---------+ + + | Performing | Address | City/State/Zipcode | Phone Number | | Organization | | | | + +---------+ + + | EXTERNAL LAB | | | | + +---------+ + + Phosphorus (09/27/2013 5:20 AM PDT) + + + + + + | Component | Value | Ref Range | Performed | Pathologist | | | | | At | Signature | + + + + + + | PHOSPHORUS | 3.4Comment: Testing | 2.3 - 4.8 mg/dL | EXTERNAL | | | | performed at [facility], [address] | | LAB | | | | [address], | | | | | | [place] [id number] | | | | + + + + + + + + | Specimen | + + | Blood specimen | | (specimen) | + + + +---------+ + + | Performing | Address | City/State/Zipcode | Phone Number | | Organization | | | | + +---------+ + + | EXTERNAL LAB | | | | + +---------+ + + Magnesium (09/27/2013 5:20 AM PDT) + + + + + + | Component | Value | Ref Range | Performed | Pathologist | | | | | At | Signature | + + + + + + | Magnesium | 1.8Comment: Testing | 1.7 - 2.4 mg/dL | EXTERNAL | | | | performed at [facility], [address] | | LAB | | | | [address], | | | | | | [place] [id number] | | | | + + + + + + + + | Specimen | + + | Blood specimen | | (specimen) | + + + +---------+ + + | Performing | Address | City/State/Zipcode | Phone Number | | Organization | | | | + +---------+ + + | EXTERNAL LAB | | | | + +---------+ + + Basic Metabolic Panel (09/27/2013 5:20 AM PDT) + + + + + + | Component | Value | Ref Range | Performed | Pathologist | | | | | At | Signature | + + + + + + | Na | 139Comment: Testing | 135 - 143 | EXTERNAL | | | | performed at [facility], [address] | mmol/L | LAB | | | | [address], | | | | | | [place] [address] | | | | + + + + + + | K | 3.4 (L)Comment: Testing | 3.5 - 4.9 | EXTERNAL | | | | performed at [facility], [address] | mmol/L | LAB | | | | [address], | | | | | | [place] [address] | | | | + + + + + + | Cl | 105Comment: Testing | 99 - 109 mmol/L | EXTERNAL | | | | performed at [facility], [address] | | LAB | | | | [address], | | | | | | [place] [address] | | | | + + + + + + | CO2 | 27Comment: Testing | 23 - 32 mmol/L | EXTERNAL | | | | performed at [facility], [address] | | LAB | | | | [address], | | | | | | [place] [address] | | | | + + + + + + | Anion Gap | 10Comment: Testing | 5 - 20 mmol/L | EXTERNAL | | | | performed at [facility], [address] | | LAB | | | | [address], | | | | | | [place] [address] | | | | + + + + + + | Glucose, | 91Comment: Testing | 65 - 99 mg/dL | EXTERNAL | | | Fasting | performed at [facility], [address] | | LAB | | | | [address], | | | | | | [place] [address] | | | | + + + + + + | BUN | 8Comment: Testing | 8 - 25 mg/dL | EXTERNAL | | | | performed at [facility], [address] | | LAB | | | | [address], | | | | | | [place] [address] | | | | + + + + + + | Creatinine | 0.92Comment: Testing | 0.50 - 1.00 | EXTERNAL | | | | performed at [facility], [address] | mg/dL | LAB | | | | [address], | | | | | | [place] [address] | | | | + + + + + + | BUN/Creatin | 9Comment: Testing | | EXTERNAL | | | ine Ratio | performed at [facility], [address] | | LAB | | | | [address], | | | | | | [place] [address] | | | | + + + + + + | Calcium | 9.7Comment: Testing | 8.5 - 10.2 | EXTERNAL | | | | performed at [facility], [address] | mg/dL | LAB | | | | [address], | | | | | | [place] [address] | | | | + + + + + + | Estimated | >60Comment: GFR <60: | mL/min/1.73m2 | EXTERNAL | | | GFR | CHRONIC KIDNEY DISEASE, | | LAB | | | | IF FOUND OVER A 3 MONTH | | | | | | PERIOD.GFR <15: KIDNEY | | | | | | FAILURE.FOR | | | | | | AMERICANS, MULTIPLY THE | | | | | | CALCULATED GFR BY | | | | | | 1.210.Testing performed | | | | | | at [facility], [address] | | | | | | [address], | | | | | | [place] [address] | | | | + + + + + + + + | Specimen | + + | Blood specimen | | (specimen) | + + + +---------+ + + | Performing | Address | City/State/Zipcode | Phone Number | | Organization | | | | + +---------+ + + | EXTERNAL LAB | | | | + +---------+ + + Troponin I (09/27/2013 12:21 AM PDT) + + + + + + | Component | Value | Ref Range | Performed | Pathologist | | | | | At | Signature | + + + + + + | Troponin I, | 0.149 (H)Comment: 0.00 | 0.00 - 0.10 | EXTERNAL | | | Qual | to 0.10 CONSISTENT | ng/mL | LAB | | | | WITH NORMAL | | | | | | POPULATION0.11 to 0.60 | | | | | | CONSISTENT WITH | | | | | | INCREASED RISK FOR | | | | | | ADVERSE OUTCOMES> 0.60 | | | | | | CONSISTENT | | | | | | WITH WHO CRITERIA FOR | | | | | | ACUTE IA Testing | | | | | | performed at [facility] | | | | | | [address];[place], [place] | | | | | | [address] | | | | + + + + + + + + | Specimen | + + | Blood specimen | | (specimen) | + + + +---------+ + + | Performing | Address | City/State/Zipcode | Phone Number | | Organization | | | | + +---------+ + + | EXTERNAL LAB | | | | + +---------+ + + XR Chest 1 Vw (09/26/2013 10:44 PM PDT) + + | Specimen | + + | | + + + + + | Narrative | Performed At | + + + | This is a non-reportable procedure without a radiologist report and | | | is used for image storage only | | + + + + + | Procedure Note | + + | Mike Pollock Conversion - 12/16/2018 3:38 PM PDT This is a non-reportable procedure | | without a radiologist report and isused for image storage only | + + Urinalysis, Microscopic Only (09/26/2013 9:54 PM PDT) + + + + + + | Component | Value | Ref Range | Performed | Pathologist | | | | | At | Signature | + + + + + + | WBC, UA | 6-10Comment: Testing | 0 - 5 /hpf | EXTERNAL | | | | performed at [facility], [address] | | LAB | | | | [address], | | | | | | [place] [address] | | | | + + + + + + | RBC, UA | 1-5Comment: Testing | 0 - 5 /hpf | EXTERNAL | | | | performed at [facility], [address] | | LAB | | | | [address], | | | | | | [place] [address] | | | | + + + + + + | Epithelial | 26-50Comment: Testing | /lpf | EXTERNAL | | | Cells | performed at [facility], [address] | | LAB | | | | [address], | | | | | | [place] [address] | | | | + + + + + + | Bacteria, | NONE SEENComment: | | EXTERNAL | | | UA | CULTURE TO FOLLOWTesting | | LAB | | | | performed at [facility], [address] | | | | | [address], | | | | | | [place] [address] | | | | + + + + + + | HYALINE | NONE SEENComment: | | EXTERNAL | | | CASTS UA | Testing performed at | | LAB | | | | [facility], [address] | | | | | | [place] | | | | | | [address] | | | | + + + + + + | Spermatozoa | NOT PRESENTComment: | | EXTERNAL | | | , Urine | Testing performed at | | LAB | | | | [facility], [address] | | | | | | [place], [place] | | | | | | [address] | | | | + + + + + + + + | Specimen | + + | | + + + +---------+ + + | Performing | Address | City/State/Zipcode | Phone Number | | Organization | | | | + +---------+ + + | EXTERNAL LAB | | | | + +---------+ + + Urinalysis, Reflex Microscopic and/or Culture (09/26/2013 9:54 PM PDT) + + + + + + | Component | Value | Ref Range | Performed | Pathologist | | | | | At | Signature | + + + + + + | Color | YELLOWComment: Testing | | EXTERNAL | | | | performed at [facility], [address] | | LAB | | | | [address], | | | | | | [place] [address] | | | | + + + + + + | Clarity | CLEARComment: Testing | | EXTERNAL | | | | performed at [facility], [address] | | LAB | | | | [address], | | | | | | [place] [address] | | | | + + + + + + | Specific | 1.015Comment: Testing | 1.002 - 1.030 | EXTERNAL | | | [place], | performed at [facility], [address] | | LAB | | | Urine | [address], | | | | | | [place] [address] | | | | + + + + + + | Leukocyte | TRACE (A)Comment: | | EXTERNAL | | | Esterase, | Testing performed at | | LAB | | | Urine | [facility], [address] | | | | | | [place] | | | | | | [address] | | | | + + + + + + | Nitrite, | NEGATIVEComment: Testing | | EXTERNAL | | | Urine | performed at [facility], [address] | | LAB | | | | [address], | | | | | | [place] [address] | | | | + + + + + + | Urobilinoge | 0.2Comment: Testing | mg/dL | EXTERNAL | | | n, Urine | performed at [facility], [address] | | LAB | | | | [address], | | | | | | [place] [address] | | | | + + + + + + | Protein, | NEGATIVEComment: Testing | mg/dL | EXTERNAL | | | Urine | performed at [facility], [address] | | LAB | | | | [address], | | | | | | [place] [id number] | | | | + + + + + + | pH, Urine | 7.0Comment: Testing | 5.0 - 8.0 | EXTERNAL | | | | performed at [facility], [address] | | LAB | | | | [address], | | | | | | [place] [id number] | | | | + + + + + + | Blood, | TRACE (A)Comment: | | EXTERNAL | | | Urine | Testing performed at | | LAB | | | | [facility], [address] | | | | | | [place] | | | | | | [address] | | | | + + + + + + | Ketones | NEGATIVEComment: Testing | mg/dL | EXTERNAL | | | | performed at [facility], [address] | | LAB | | | | [address], | | | | | | [place] [address] | | | | + + + + + + | Bilirubin, | NEGATIVEComment: Testing | | EXTERNAL | | | Urine | performed at [facility], [address] | | LAB | | | | [address], | | | | | | [place] [address] | | | | + + + + + + | Glucose, | NEGATIVEComment: Testing | mg/dL | EXTERNAL | | | Urine | performed at [facility], [address] | | LAB | | | | [address], | | | | | | [place] [address] | | | | + + + + + + + + | Specimen | + + | Urine specimen | | (specimen) | + + + +---------+ + + | Performing | Address | City/State/Zipcode | Phone Number | | Organization | | | | + +---------+ + + | EXTERNAL LAB | | | | + +---------+ + + CT Angiogram Pulmonary w Contrast (09/26/2013 2:30 PM PDT) + + | Specimen | + + | | + + + + + | Impressions | Performed At | + + + | 1. No CT evidence of acute pulmonary embolism, although evaluation | | | is limited. 2. Moderate bilateral pleural effusions, right larger | | | than left. 3. Patchy groundglass infiltrates in both upper lobes. | | | 4. Small 5 mm left upper lobe lung nodule, indeterminate, but | | | probably benign. A followup chest CT is suggested in 6 months. 5. | | | Mild bibasilar atelectasis. 6. Calcified right hilar lymph nodes. | | | 7. Gallstones. | | + + + + + + | Narrative | Performed At | + + + | [facility] CHEST PULMONARY EMBOLISM W CONTRAST 09/26/2013 | | | 2:30 PM HISTORY: Chest pain and elevated d-dimer. Concern for | | | pulmonary embolism. TECHNIQUE: 1.5 mm axial sections were | | | obtained through the chest during bolus infusion of IV contrast for CT | | | angiography and post processing was done with MIPs. FINDINGS: No | | | prior comparison. Evaluation is limited by patient breathing | | | motion. No large central saddle-type pulmonary emboli are visualized. | | | In view of the limitations of the study, a small peripheral embolus | | | cannot be excluded. There are moderate bilateral pleural effusions, | | | right larger than left. Incidental note is made of gallstones. There | | | is mild bibasilar atelectasis. Patchy groundglass infiltrates are | | | identified in both upper lobes. Calcified right hilar lymph nodes are | | | noted. A small noncalcified pulmonary nodule is identified in the | | | left upper lobe measuring 5 mm on series 3 image 22. A followup chest | | | CT is recommended in 6 months. | | + + + + + | Procedure Note | + + | Phill, Rad Conversion - 12/16/2018 3:38 PM PDT [facility] CHEST [facility]ARY | | EMBOLISM W CONTRAST09/26/2013 2:30 PM HISTORY:Chest pain and elevated d-dimer. Concern | | for pulmonary embolism. TECHNIQUE:1.5 mm axial sections were obtained through the chest | | during bolus infusion of IV contrast for CT angiography and post processing was done | | with MIPs. FINDINGS:No prior comparison. Evaluation is limited by patient breathing | | motion. No large central saddle-type pulmonary emboli are visualized. In view of the | | limitations of the study, a small peripheral embolus cannot be excluded. There are | | moderate bilateral pleural effusions, right larger than left. Incidental note is made of | | gallstones. There is mild bibasilar atelectasis. Patchy groundglass infiltrates are | | identified in both upper lobes. Calcified right hilar lymph nodes are noted. A small | | noncalcified pulmonary nodule is identified in the left upper lobe measuring 5 mm on | | series 3 image 22. A followup chest CT is recommended in 6 months. IMPRESSION: 1. No CT | | evidence of acute pulmonary embolism, although evaluation is limited.2. Moderate | | bilateral pleural effusions, right larger than left.3. Patchy groundglass infiltrates | | in both upper lobes.4. Small 5 mm left upper lobe lung nodule, indeterminate, but | | probably benign. A followup chest CT is suggested in 6 months.5. Mild bibasilar | | atelectasis.6. Calcified right hilar lymph nodes.7. Gallstones. | |IMPRESSION: | |1. No CT evidence of acute pulmonary embolism, although evaluation is limited. | |2. Moderate bilateral pleural effusions, right larger than left. | |3. Patchy groundglass infiltrates in both upper lobes. | |4. Small 5 mm left upper lobe lung nodule, indeterminate, but probably benign. A followup chest CT is suggested in 6 months. | |5. Mild bibasilar atelectasis. | |6. Calcified right hilar lymph nodes. | |7. Gallstones. | | | | | + + ECG 12 lead (09/26/2013 1:12 PM PDT) + + + + + + | Component | Value | Ref Range | Performed | Pathologist | | | | | At | Signature | + + + + + + | DIAGNOSIS: | Normal sinus rhythmLeft | | EXTERNAL | | | | bundle branch | | LAB | | | | blockAbnormal ECGNo | | | | | | previous ECGs | | | | | | availableThis ECG | | | | | | contains Unconfirmed | | | | | | Interpretation | | | | | | Statements. See ED | | | | | | Record for Physician | | | | | | Interpretation. | | | | | | Confirmed by MUSE READ | | | | | | ONLY, -COMPUTER ([id number]), | | | | | | news videotape editor PAT SANDERS | | | | | | (4) on 09/26/2013 5:42:42 | | | | | | PM | | | | + + + + + + + + | Specimen | + + | | + + + + + | Narrative | Performed At | + + + | [facility] | EXTERNAL LAB | + + + + +---------+ + + | Performing | Address | City/State/Zipcode | Phone Number | | Organization | | | | + +---------+ + + | EXTERNAL LAB | | | | + +---------+ + + HISTORICAL LAB PANEL RESULT (09/26/2013 1:10 PM PDT) + + + + + -+ | Component | Value | Ref Range | Performed | Pathologist | | | | | At | Signature | + + + + + -+ | WBC | 10.3Comment: Testing | 3.8 - 11.0 K/uL | EXTERNAL | | | | performed at [facility];[address] | | LAB | | | | [address];[place] | | | | | | [address] | | | | + + + + + -+ | Red Blood | 3.76Comment: Testing | 3.70 - 5.10 | EXTERNAL | | | Cells | performed at [facility];[address] | M/uL | LAB | | | Counted | [address];[place] | | | | | | [address] | | | | + + + + + -+ | Hemoglobin | 12.2Comment: Testing | 11.3 - 15.5 | EXTERNAL | | | | performed at [facility];[address] | g/dL | LAB | | | | [address];[place] | | | | | | [address] | | | | + + + + + -+ | Hematocrit, | 36.4Comment: Testing | 34.0 - 46.0 % | EXTERNAL | | | POC | performed at [facility];[address] | | LAB | | | | [address];[place] | | | | | | [address] | | | | + + + + + -+ | MCV | 96.9Comment: Testing | 80.0 - 100.0 fl | EXTERNAL | | | | performed at [facility];[address] | | LAB | | | | [address];[place] | | | | | | [address] | | | | + + + + + -+ | MCH | 32.4Comment: Testing | 27.0 - 34.0 pg | EXTERNAL | | | | performed at [facility];[address] | | LAB | | | | [address];[place] | | | | | | [address] | | | | + + + + + -+ | MCHC | 33.5Comment: Testing | 32.0 - 35.5 | EXTERNAL | | | | performed at [facility];[address] | g/dL | LAB | | | | [address];[place] | | | | | | [address] | | | | + + + + + -+ | RDW-CV | 47.7Comment: Testing | 37 - 53 fl | EXTERNAL | | | | performed at [facility];[address] | | LAB | | | | [address];[place] | | | | | | [address] | | | | + + + + + -+ | Platelet | 339Comment: Testing | 150 - 400 K/uL | EXTERNAL | | | Count | performed at [facility];[address] | | LAB | | | Plasma | [address];[place] | | | | | | [address] | | | | + + + + + -+ | MPV | 6.3Comment: Testing | fl | EXTERNAL | | | | performed at [facility];[address] | | LAB | | | | [address];[place] | | | | | | [address] | | | | + + + + + -+ | Differentia | AUTOMATEDComment: | | EXTERNAL | | | l Type | Testing performed at | | LAB | | | | [facility];[address];[place] [address] | | | | + + + + + -+ | % Segmented | 82.6Comment: Testing | % | EXTERNAL | | | | performed at [facility];[address] | | LAB | | | Neutrophils | [address];[place] | | | | | | [address] | | | | + + + + + -+ | % | 10.1Comment: Testing | % | EXTERNAL | | | Lymphocytes | performed at [facility];[address] | | LAB | | | | [address];[place] | | | | | | [address] | | | | + + + + + -+ | % Monocytes | 4.8Comment: Testing | % | EXTERNAL | | | | performed at [facility];[address] | | LAB | | | | [address];[place] | | | | | | [address] | | | | + + + + + -+ | % | 1.7Comment: Testing | % | EXTERNAL | | | Eosinophils | performed at [facility];[address] | | LAB | | | | [address];[place] | | | | | | [address] | | | | + + + + + -+ | % Basophils | 0.8Comment: Testing | % | EXTERNAL | | | | performed at [facility];[address] | | LAB | | | | [address];[place] | | | | | | [address] | | | | + + + + + -+ | Absolute | 8.5 (H)Comment: Testing | 1.9 - 7.4 K/uL | EXTERNAL | | | Segmented | performed at [facility];[address] | | LAB | | | Neutrophils | [address];[place] | | | | | | [address] | | | | + + + + + -+ | Absolute | 1.0Comment: Testing | 1.0 - 3.9 K/uL | EXTERNAL | | | Lymphocytes | performed at [facility];[address] | | LAB | | | | [address];[place] | | | | | | [address] | | | | + + + + + -+ | Absolute | 0.5Comment: Testing | 0 - 0.8 K/uL | EXTERNAL | | | Monocytes | performed at [facility];[address] | | LAB | | | | [address];[place] | | | | | | [address] | | | | + + + + + -+ | Absolute | 0.2Comment: Testing | 0 - 0.5 K/uL | EXTERNAL | | | Eosinophils | performed at [facility];[address] | | LAB | | | | [address];[place] | | | | | | [address] | | | | + + + + + -+ | Absolute | 0.1Comment: Testing | 0 - 0.1 K/uL | EXTERNAL | | | Basophils | performed at [facility];[address] | | LAB | | | | [address];[place] | | | | | | [address] | | | | + + + + + -+ | Na | 141Comment: Testing | 135 - 143 | EXTERNAL | | | | performed at [facility];[address] | mmol/L | LAB | | | | [address];[place] | | | | | | [address] | | | | + + + + + -+ | K | 3.2 (L)Comment: Testing | 3.5 - 4.9 | EXTERNAL | | | | performed at [facility];[address] | mmol/L | LAB | | | | [address];[place] | | | | | | [address] | | | | + + + + + -+ | Cl | 105Comment: Testing | 99 - 109 mmol/L | EXTERNAL | | | | performed at [facility];[address] | | LAB | | | | [address];[place] | | | | | | [address] | | | | + + + + + -+ | CO2 | 25Comment: Testing | 23 - 32 mmol/L | EXTERNAL | | | | performed at [facility];[address] | | LAB | | | | [address];[place] | | | | | | [address] | | | | + + + + + -+ | Anion Gap | 14Comment: Testing | 5 - 20 mmol/L | EXTERNAL | | | | performed at [facility];[address] | | LAB | | | | [address];[place] | | | | | | [address] | | | | + + + + + -+ | Glucose, | 96Comment: Testing | 65 - 99 mg/dL | EXTERNAL | | | Fasting | performed at [facility];[address] | | LAB | | | | [address];[place] | | | | | | [address] | | | | + + + + + -+ | BUN | 8Comment: Testing | 8 - 25 mg/dL | EXTERNAL | | | | performed at [facility];[address] | | LAB | | | | [address];[place] | | | | | | [address] | | | | + + + + + -+ | Creatinine | 0.96Comment: Testing | 0.50 - 1.00 | EXTERNAL | | | | performed at [facility];[address] | mg/dL | LAB | | | | [address];[place] | | | | | | [address] | | | | + + + + + -+ | BUN/Creatin | 9Comment: Testing | | EXTERNAL | | | ine Ratio | performed at [facility];[address] | | LAB | | | | [address];[place] | | | | | | [address] | | | | + + + + + -+ | Calcium | 9.2Comment: Testing | 8.5 - 10.2 | EXTERNAL | | | | performed at [facility];[address] | mg/dL | LAB | | | | [address];[place] | | | | | | [address] | | | | + + + + + -+ | Protein, | 6.7Comment: Testing | 6.3 - 8.2 g/dL | EXTERNAL | | | Total | performed at [facility];[address] | | LAB | | | | [address];[place] | | | | | | [address] | | | | + + + + + -+ | Albumin | 2.5 (L)Comment: Testing | 3.3 - 4.8 g/dL | EXTERNAL | | | | performed at [facility];[address] | | LAB | | | | [address];[place] | | | | | | [address] | | | | + + + + + -+ | Globulin | 4.2Comment: Testing | 1.3 - 4.9 g/dL | EXTERNAL | | | | performed at [facility];[address] | | LAB | | | | [address];[place] | | | | | | [address] | | | | + + + + + -+ | A/G Ratio | 0.6 (L)Comment: Testing | 1.0 - 2.4 | EXTERNAL | | | | performed at [facility];[address] | | LAB | | | | [address];[place] | | | | | | [address] | | | | + + + + + -+ | Bilirubin | 0.5Comment: Testing | 0.1 - 1.5 mg/dL | EXTERNAL | | | Total | performed at [facility];[address] | | LAB | | | | [address];[place] | | | | | | [address] | | | | + + + + + -+ | ALP, | 73Comment: Testing | 35 - 115 U/L | EXTERNAL | | | External | performed at [facility];[address] | | LAB | | | | [address];[place] | | | | | | [address] | | | | + + + + + -+ | AST | 57 (H)Comment: Testing | 10 - 45 U/L | EXTERNAL | | | | performed at [facility];[address] | | LAB | | | | [address];[place] | | | | | | [address] | | | | + + + + + -+ | ALT | 103 (H)Comment: Testing | 10 - 65 U/L | EXTERNAL | | | | performed at [facility];[address] | | LAB | | | | [address];[place] | | | | | | [address] | | | | + + + + + -+ | Estimated | 60 (L)Comment: GFR <60: | mL/min/1.73m2 | EXTERNAL | | | GFR | CHRONIC KIDNEY DISEASE, | | LAB | | | | IF FOUND OVER A 3 MONTH | | | | | | PERIOD.GFR <15: KIDNEY | | | | | | FAILURE.FOR | | | | | | AMERICANS, MULTIPLY THE | | | | | | CALCULATED GFR BY | | | | | | 1.210.Testing performed | | | | | | at [facility];[address];[place] [address] | | | | + + + + + -+ | CK, Total | 79Comment: Testing | 30 - 240 U/L | EXTERNAL | | | | performed at [facility];[address] | | LAB | | | | [address];[place] | | | | | | [address] | | | | + + + + + -+ | INR | 1.1Comment: REFERENCE | | EXTERNAL | | | | RANGE:0.9 - 1.2 | | LAB | | | | NON-ANTICOAGULATED2.0 | | | | | | - 3.0 ALL OTHER | | | | | | THERAPEUTIC | | | | | | INDICATIONS2.5 - 3.5 | | | | | | MECHANICAL HEART VALVES, | | | | | | RECURRENT OR SYSTEMIC | | | | | | EMBOLISMTesting | | | | | | performed at [facility];[address] | | | | | | [address];[place] | | | | | | [address] | | | | + + + + + -+ | aPTT, | 33 (H)Comment: Testing | 23 - 32 seconds | EXTERNAL | | | Patient | performed at [facility];[address] | | LAB | | | | [address];[place] | | | | | | [address] | | | | + + + + + -+ | CK-MB | 3.3Comment: Testing | 0.5 - 3.6 ng/mL | EXTERNAL | | | | performed at [facility];[address] | | LAB | | | | [address];[place] | | | | | | [address] | | | | + + + + + -+ | CK-MB Index | 4.2Comment: CK INDEX | | EXTERNAL | | | | INTERPRETATION: | | LAB | | | | MMB ng/mL | | | | | | | | | | | |CK INDEX INTERPRETATION: | | | | | | MMB ng/mL | | | | | | | | | | + + + + + -+ + + | Specimen | + + | | + + + +---------+ + + | Performing | Address | City/State/Zipcode | Phone Number | | Organization | | | | + +---------+ + + | EXTERNAL LAB | | | | + +---------+ + + Troponin I (09/26/2013 1:10 PM PDT) + + + + + + | Component | Value | Ref Range | Performed | Pathologist | | | | | At | Signature | + + + + + + | Troponin I, | 0.226 (H)Comment: 0.00 | 0.00 - 0.10 | EXTERNAL | | | Qual | to 0.10 CONSISTENT | ng/mL | LAB | | | | WITH NORMAL | | | | | | POPULATION0.11 to 0.60 | | | | | | CONSISTENT WITH | | | | | | INCREASED RISK FOR | | | | | | ADVERSE OUTCOMES> 0.60 | | | | | | CONSISTENT | | | | | | WITH WHO CRITERIA FOR | | | | | | ACUTE IA Testing | | | | | | performed at [facility];[address] | | | | | | [address];[place], [place] | | | | | | [address] | | | | + + + + + + + + | Specimen | + + | | + + + +---------+ + + | Performing | Address | City/State/Zipcode | Phone Number | | Organization | | | | + +---------+ + + | EXTERNAL LAB | | | | + +---------+ + + D-Dimer (09/26/2013 1:10 PM PDT) + + + + + + | Component | Value | Ref Range | Performed | Pathologist | | | | | At | Signature | + + + + + + | D-DIMER, | 5.19 (H)Comment: D Dimer | 0.19 - 0.50 | EXTERNAL | | | MANUAL | results less than 0.50 | mg/L FEU | LAB | | | | mg/L FEU may rule out | | | | | | DVT and PE. However, | | | | | | all laboratory results | | | | | | should be interpreted in | | | | | | the context of all | | | | | | available clinical, | | | | | | radiologic and | | | | | | laboratory | | | | | | information.Testing | | | | | | performed at [facility];[address] | | | | | | [facility];[place], [place] | | | | | | [address] | | | | + + + + + + + + | Specimen | + + | Blood specimen | | (specimen) | + + + +---------+ + + | Performing | Address | City/State/Zipcode | Phone Number | | Organization | | | | + +---------+ + + | EXTERNAL LAB | | | | + +---------+ + + Phosphorus (09/26/2013 1:10 PM PDT) + + + + + + | Component | Value | Ref Range | Performed | Pathologist | | | | | At | Signature | + + + + + + | PHOSPHORUS | 3.3Comment: Testing | 2.3 - 4.8 mg/dL | EXTERNAL | | | | performed at [facility];[address] | | LAB | | | | [address];[place], [place] | | | | | | [address] | | | | + + + + + + + + | Specimen | + + | Blood specimen | | (specimen) | + + + +---------+ + + | Performing | Address | City/State/Zipcode | Phone Number | | Organization | | | | + +---------+ + + | EXTERNAL LAB | | | | + +---------+ + + B Type Natriuretic Peptide (09/26/2013 1:10 PM PDT) + + + + + + | Component | Value | Ref Range | Performed | Pathologist | | | | | At | Signature | + + + + + + | BNP | 182 (H)Comment: Testing | 0 - 100 pg/mL | EXTERNAL | | | | performed at [facility];[address] | | LAB | | | | [address];[place] | | | | | | [address] | | | | + + + + + + + + | Specimen | + + | Blood specimen | | (specimen) | + + + +---------+ + + | Performing | Address | City/State/Zipcode | Phone Number | | Organization | | | | + +---------+ + + | EXTERNAL LAB | | | | + +---------+ + + Magnesium (09/26/2013 1:10 PM PDT) + + + + + + | Component | Value | Ref Range | Performed | Pathologist | | | | | At | Signature | + + + + + + | Magnesium | 2.7 (H)Comment: Testing | 1.7 - 2.4 mg/dL | EXTERNAL | | | | performed at [facility];[address] | | LAB | | | | [address] [facility];[place], [place] | | | | | | [address] | | | | + + + + + + + + | Specimen | + + | Blood specimen | | (specimen) | + + + +---------+ + + | Performing | Address | City/State/Zipcode | Phone Number | | Organization | | | | + +---------+ + + | EXTERNAL LAB | | | | + +---------+ + + documented in this encounter Visit Diagnoses + + | Diagnosis | + + | Chest pain Chest pain, unspecified | + + | Elevated troponin Other abnormal blood chemistry | + + | Hypokalemia Hypopotassemia | + + | Bilateral pleural effusion Unspecified pleural effusion | + + | Elevated LFTs Other abnormal blood chemistry | + + | Hypertension Unspecified essential hypertension | + + | Hyperlipidemia Other and unspecified hyperlipidemia | + + | Hypothyroidism Unspecified hypothyroidism | + + documented in this encounter
--- OUTSIDE RECORDS SUMMARY | ~2019-10-06 | XMS | Clinical Summary ---
Demographics + + + | Address | [address] | | | [place] [address] | + + + | Home Phone | | + + + | Preferred Language | Unknown | + + + | Marital Status | Unknown | + + + | Jainism Affiliation | Unknown | + + + | Race | Unknown | + + + | Ethnic Group | Unknown | + + + Author + + + | Author | [facility] | | | and [place] | + + + | Organization | [facility] | | | and [place] | + + + | Address | Unknown | + + + | Phone | Unavailable | + + + Care Team Providers + +------+ + | Care Prisoner Classification Interviewer Name | Role | Phone | + [...]
--- OUTSIDE RECORDS SUMMARY | ~2019-10-06 | XMS | Encounter Summary ---
Demographics + + + | Address | [address] | | | [place] [address] | + + + | Home Phone | | + + + | Preferred Language | Unknown | + + + | Marital Status | Unknown | + + + | Baptist Affiliation | Unknown | + + + | Race | Unknown | + + + | Ethnic Group | Unknown | + + + Author + + + | Author | [facility] | | | and Bryceana | + + + | Organization | [facility] | | | and Bryceana | + + + | Address | Unknown | + + + | Phone | Unavailable | + + + Care Team Providers + +------+ + | Care Automatic Dispenser Mechanic Name | Role | Phone | + +------+ + PCP | Unavailable | + +------+ + Encounter Details +--------+ + + + + | Date | Type | Department | Care Team | Description | +--------+ + + + + | 09/26/ | Hospital | [facility] | Galdino Almonte | Chest pain; Elevated | | 2013 - | Encounter | [facility] | Cuauhtemoc Armas MD [address] | troponin; | | | | CLINICAL DECISION | [address] | Hypokalemia; | | 09/27/ | | [address] | [place] [address] | Bilateral pleural | | 2013 | | [place], [place] | [phone] | effusion; Elevated | | | | [phone] | | LFTs; Hypertension; | | | | [phone] | | Hyperlipidemia; | | | | [...] Summaries by Marvel Hemphill MD at 09/27/13 0340 Author: Marvel Hemphill MD Service: Hospitalist Author Type: Physician Filed: 09/30/131849 Date of Service: 09/27/131724 Status: Signed Nurse School: Marvel Hemphill MD (Physician) Related Notes: Original Note by Marvel Hemphill MD (Physician) filed at 09/27/13 17 31 [facility] Service: Hospitalist Physician Discharge Summary Pt: Akua Brizuela AGE/SEX: 78 y.o. female ROOM: [address] [place], [place] [address] PCP: KASI WEST : 1935 Admit date: [...] hype rtension, hyperlipidemia, was initially admitted to [facility] for Escherichia col i sepsis due to pyelonephritis. She was also diagnosed as having pneumonia. Patient was disc harged yesterday from the hospital after she stayed for 5 days. Yesterday while at home, she was eating yogurt and started having chest pain. She went to [facility] emergency department of [facility], where she was found to have elevated tropon in of 0.58 and EKG showed chronic left bundle branch block. CT of chest was also done that w as negative for pulmonary embolism or pneumonia. As [facility], hence patient was transferred and admitted under hospitalist care in [facility]. HOSPITAL COURSE Patient remained chest pain free, [...] troponin l eak and not due to [place]. Patient has history of hypertension and hyperlipidemia, but somehow her antihypertensives a nd anticholesterol medications were discontinued while she was at [facility]. I sutton ve advised her to follow [...] hours No results found for this basename: PHART:3,PO2ART:3,OEU4OUD:3,I9BWHUMC:3,BEART:[address] 168 hours Lab [...] Refills: 0 Commonly known as: KEFLEX Cholecalciferol 53285 UNITS Tabs Refills: 0 fish oil-omega-3 fatty [...] (none) Author Type: Registered Nurse Filed: 09/27/13 4216 Date of Service: 09/27/131752 Status: Signed Nurse School: Catherine Moncada RN (Registered Nurse) D/c instructions given and discussed, pt. States understanding. daughter providing transpor tation home. Pt. To f/u with pcp on Wednesday. Catherine Moncada RN onver deborah Transaction, Provider Unknown - 09/27/2013 2:53 PM PDT Case Management by GIN Suh at 09/27/13 9734 Author: GIN Suh Service: (none) Author Type: Fiscal Services Manager Filed: 09/27/13 8834 Date of Service: 09/27/13 1453 Status: Signed Nurse School: GIN Suh (Fiscal Services Manager) 09/27/13 1400 Discharge Planning Evaluation Admitting Diagnosis [...] return [place] with SO. Suma Jeter onver deborah Transaction, Provider Unknown - 09/26/2013 8:16 PM PDT Progress Notes by Mirella Currie RPH at 09/26/132015 Author: Mirella Currie RPH Service: (none) Author Type: Pharmacist Filed: 09/26/132015 Date of Service: 09/26/132015 Status: Signed Nurse School: Mirella Currie RPH (Pharmacist) Clinical Pharmacy Note: [...] Author: GIN Monteiro Service: (none) Author Type: Nougat Cutter Machine Filed: 09/26/131905 Date of Service: 09/26/131905 Status: Signed Nurse School: GIN Monteiro (Nougat Cutter Machine) Cm attempted to meet with patient; pt asleep and unable to answer questions. F/U with famil y when they are back at hospital. onver deborah Transaction, Provider Unknown - 09/26/2013 3:43 PM PDT Progress Notes by Mirella Currie RPH at 09/26/13 1543 Author: Mirella Currie RPH Service: (none) Author Type: Pharmacist Filed: 09/26/13 154 Date of Service: 09/26/131542 Status: Signed Nurse School: Mirella Currie RPH (Pharmacist) Clinical Pharmacy Note: [...] in renal function and adjust accordingly. Mirella Crurie RPh 09/26/2013 3:43 PM docume nted in [...] | | | | | | ACUTE [place] Testing | | | | | | performed at [facility];[address] | | | | | | [address];[place], [place] | | | | | | [address] | | | | + + + [...] Excursion: 1.18 cm | | | E-F Beau[place]: 0.03 m/s EPSS: 0.36 cm HR: 68 [...] TV A Jonathan: 0.20 m/s TV Dec Beau[place]: 4.63 m/s2 TV Dec | | | Time: 81.78 ms TV E Jonathan: 0.37 m/s TV E/A Ratio: 1.85 | | | Facility Service Associate: EDILMA Authenticated by: Delroy Jensen MD Report [...] Diam: 3.21 cmLA/Ao: 1.08D-E Excursion: 1.18 cmE-F Beaufort: 0.03 m/sEPSS: 0.36 | | cmHR: 68 BPMAV maxP.05 mmHgAV meanP.51 mmHgAV Vmax: 1.32 m/Eduardo Vmean: | | 1.02 m/Eduardo VTI: 30.57 cmAVA Vmax: 2.69 cm2AVA (VTI): 2.43 aj4CTRR Dopp: 3.22 | | l/bxkn9BTYZ Dopp: 5.09 l/minHR: 68.53 BPMLVOT maxP.07 mmHgLVOT [...] 2.30 m/sTV A Jonathan: 0.20 m/sTV Dec Beau[place]: 4.63 m/s2TV Dec Time: 81.78 | | msTV E Jonathan: 0.37 m/sTV E/A Ratio: 1.85 Facility Service Associate: GDAuthenticated by: Delroy | | Alqaisi MDReport [...] | |D-E Excursion: 1.18 cm | |E-F Beau[place]: 0.03 m/s | |EPSS: 0.36 cm | [...] A Jonathan: 0.20 m/s | |TV Dec Beau[place]: 4.63 m/s2 | |TV Dec Time: 81.78 ms | |TV E Jonathan: 0.37 m/s | |TV E/A Ratio: 1.85 | | | |Facility Service Associate: EDILMA | |Authenticated by: Delroy Jensen MD [...] | | | Patient | performed at [facility];[address] | | LAB | | | | [facility];[place], [place] | | | | | | [address] | | | | + + + [...] | | | | | performed at [facility] | | | | | | [facility];[place], [place] | | | | | | [address] | | | | + + + [...] | | | | | [place] [address] | | | | + + + + + + | Red Blood | 3.38 (L)Comment: Testing | 3.70 - 5.10 | EXTERNAL | | | Cells | performed at [facility], [address] | M/uL | LAB | | | Counted | [address], | | | | | | [place] [address] | | | | + + + + + + | Hemoglobin | 11.4Comment: Testing | 11.3 - 15.5 | EXTERNAL | | | | performed at [facility], [address] | g/dL | LAB | | | | [address], | | | | | | [place] [address] | | | | + + + + + + | Hematocrit, | 32.3 (L)Comment: Testing | 34.0 - 46.0 % | EXTERNAL | | | POC | performed at [facility], [address] | | LAB | | | | [address], | | | | | | [place] [address] | | | | + + + + + + | MCV | 95.4Comment: Testing | 80.0 - 100.0 fl | EXTERNAL | | | | performed at [facility], [address] | | LAB | | | | [address], | | | | | | [place] [address] | | | | + + + + + + | MCH | 33.6Comment: Testing | 27.0 - 34.0 pg | EXTERNAL | | | | performed at [facility], [address] | | LAB | | | | [address], | | | | | | [place] [address] | | | | + + + + + + | MCHC | 35.3Comment: Testing | 32.0 - 35.5 | EXTERNAL | | | | performed at [facility], [address] | g/dL | LAB | | | | [address], | | | | | | [place] [address] | | | | + + + + + + | RDW-CV | 47.3Comment: Testing | 37 - 53 fl | EXTERNAL | | | | performed at [facility], [address] | | LAB | | | | [address], | | | | | | [place] [address] | | | | + + + + + + | Platelet | 306Comment: Testing | 150 - 400 K/uL | EXTERNAL | | | Count | performed at [facility], [address] | | LAB | | | Plasma | [address], | | | | | | [place] [address] | | | | + + + + + + | MPV | 6.8Comment: Testing | fl | EXTERNAL | | | | performed at [facility], [address] | | LAB | | | | [address], | | | | | | [place] [address] | | | | + + + + + + | Differentia | AUTOMATEDComment: | | EXTERNAL | | | l Type | Testing performed at | | LAB | | | | [facility], [address] | | | | | | [place] | | | | | | [address] | | | | + + + + + + | % Segmented | 85.0Comment: Testing | % | EXTERNAL | | | | performed at [facility], [address] | | LAB | | | Neutrophils | [address], | | | | | | [place] [address] | | | | + + + + + + | % | 6.6Comment: Testing | % | EXTERNAL | | | Lymphocytes | performed at [facility], [address] | | LAB | | | | [address], | | | | | | [place] [address] | | | | + + + + + + | % Monocytes | 6.4Comment: Testing | % | EXTERNAL | | | | performed at [facility], [address] | | LAB | | | | [address], | | | | | | [place] [address] | | | | + + + + + + | % | 1.8Comment: Testing | % | EXTERNAL | | | Eosinophils | performed at [facility], [address] | | LAB | | | | [address], | | | | | | [place] [address] | | | | + + + + + + | % Basophils | 0.2Comment: Testing | % | EXTERNAL | | | | performed at [facility], [address] | | LAB | | | | [address], | | | | | | [place] [address] | | | | + + + + + + | Absolute | 9.2 (H)Comment: Testing | 1.9 - 7.4 K/uL | EXTERNAL | | | Segmented | performed at [facility], [address] | | LAB | | | Neutrophils | [address], | | | | | | [place] [address] | | | | + + + + + + | Absolute | 0.7 (L)Comment: Testing | 1.0 - 3.9 K/uL | EXTERNAL | | | Lymphocytes | performed at [facility], [address] | | LAB | | | | [address], | | | | | | [place] [address] | | | | + + + + + + | Absolute | 0.7Comment: Testing | 0 - 0.8 K/uL | EXTERNAL | | | Monocytes | performed at [facility], [address] | | LAB | | | | [address], | | | | | | [place] [address] | | | | + + + + + + | Absolute | 0.2Comment: Testing | 0 - 0.5 K/uL | EXTERNAL | | | Eosinophils | performed at [facility], [address] | | LAB | | | | [address], | | | | | | [place] [address] | | | | + + + + + + | Absolute | 0.0Comment: Testing | 0 - 0.1 K/uL | EXTERNAL | | | Basophils | performed at [facility], [address] | | LAB | | | | [address], | | | | | | [place] [address] | | | | + + + [...] EXTERNAL | | | | performed at [facility], [address] | | LAB | | | | [address], | | | | | | [place] [address] | | | | + + + [...] EXTERNAL | | | | performed at [facility], [address] | | LAB | | | | [address], | | | | | | [place] [address] | | | | + + + [...] | | | | | [place] [address] | | | | + + + + + + | K | 3.4 (L)Comment: Testing | 3.5 - 4.9 | EXTERNAL | | | | performed at [facility], [address] | mmol/L | LAB | | | | [address], | | | | | | [place] [address] | | | | + + + + + + | Cl | 105Comment: Testing | 99 - 109 mmol/L | EXTERNAL | | | | performed at [facility], [address] | | LAB | | | | [address], | | | | | | [place] [address] | | | | + + + + + + | CO2 | 27Comment: Testing | 23 - 32 mmol/L | EXTERNAL | | | | performed at [facility], [address] | | LAB | | | | [address], | | | | | | [place] [address] | | | | + + + + + + | Anion Gap | 10Comment: Testing | 5 - 20 mmol/L | EXTERNAL | | | | performed at [facility], [address] | | LAB | | | | [address], | | | | | | [place] [address] | | | | + + + + + + | Glucose, | 91Comment: Testing | 65 - 99 mg/dL | EXTERNAL | | | Fasting | performed at [facility], [address] | | LAB | | | | [address], | | | | | | [place] [address] | | | | + + + + + + | BUN | 8Comment: Testing | 8 - 25 mg/dL | EXTERNAL | | | | performed at [facility], [address] | | LAB | | | | [address], | | | | | | [place] [address] | | | | + + + + + + | Creatinine | 0.92Comment: Testing | 0.50 - 1.00 | EXTERNAL | | | | performed at [facility], [address] | mg/dL | LAB | | | | [address], | | | | | | [place] [address] | | | | + + + + + + | BUN/Creatin | 9Comment: Testing | | EXTERNAL | | | ine Ratio | performed at [facility], [address] | | LAB | | | | [address], | | | | | | [place] [address] | | | | + + + + + + | Calcium | 9.7Comment: Testing | 8.5 - 10.2 | EXTERNAL | | | | performed at [facility], [address] | mg/dL | LAB | | | | [address], | | | | | | [place] [address] | | | | + + + [...] | | | | | [place] [address] | | | | + + + [...] | | | | | | ACUTE [place] Testing | | | | | | performed at [facility] | | | | | | [address];[place], [place] | | | | | | [address] | | | | + + + [...] | | | | | [place] [address] | | | | + + + + + + | RBC, UA | 1-5Comment: Testing | 0 - 5 /hpf | EXTERNAL | | | | performed at [facility], [address] | | LAB | | | | [address], | | | | | | [place] [address] | | | | + + + + + + | Epithelial | 26-50Comment: Testing | /lpf | EXTERNAL | | | Cells | performed at [facility], [address] | | LAB | | | | [address], | | | | | | [place] [address] | | | | + + + + + + | Bacteria, | NONE SEENComment: | | EXTERNAL | | | UA | CULTURE TO FOLLOWTesting | | LAB | | | | performed at [facility], [address] | | | | | | [address], | | | | | | [place] [address] | | | | + + + + + + | HYALINE | NONE SEENComment: | | EXTERNAL | | | CASTS UA | Testing performed at | | LAB | | | | [facility], [address] | | | | | | [place] | | | | | | [address] | | | | + + + + + + | Spermatozoa | NOT PRESENTComment: | | EXTERNAL | | | , Urine | Testing performed at | | LAB | | | | [facility], [address] | | | | | | [place], [place] | | | | | | [address] | | | | + + + [...] | | | | | [place] [address] | | | | + + + + + + | Clarity | CLEARComment: Testing | | EXTERNAL | | | | performed at [facility], [address] | | LAB | | | | [address], | | | | | | [place] [address] | | | | + + + + + + | Specific | 1.015Comment: Testing | 1.002 - 1.030 | EXTERNAL | | | Nelson, | performed at [facility], [address] | | LAB | | | Urine | [address], | | | | | | [place] [address] | | | | + + + + + + | Leukocyte | TRACE (A)Comment: | | EXTERNAL | | | Esterase, | Testing performed at | | LAB | | | Urine | [facility], [address] | | | | | | [place] | | | | | | [address] | | | | + + + + + + | Nitrite, | NEGATIVEComment: Testing | | EXTERNAL | | | Urine | performed at [facility], [address] | | LAB | | | | [address], | | | | | | [place] [address] | | | | + + + + + + | Urobilinoge | 0.2Comment: Testing | mg/dL | EXTERNAL | | | n, Urine | performed at [facility], [address] | | LAB | | | | [address], | | | | | | [place] [address] | | | | + + + + + + | Protein, | NEGATIVEComment: Testing | mg/dL | EXTERNAL | | | Urine | performed at [facility], [address] | | LAB | | | | [address], | | | | | | [place] [address] | | | | + + + + + + | pH, Urine | 7.0Comment: Testing | 5.0 - 8.0 | EXTERNAL | | | | performed at [facility], [address] | | LAB | | | | [address], | | | | | | [place] [address] | | | | + + + + + + | Blood, | TRACE (A)Comment: | | EXTERNAL | | | Urine | Testing performed at | | LAB | | | | [facility], [address] | | | | | | [place] | | | | | | [address] | | | | + + + + + + | Ketones | NEGATIVEComment: Testing | mg/dL | EXTERNAL | | | | performed at [facility], [address] | | LAB | | | | [address], | | | | | | [place] [address] | | | | + + + + + + | Bilirubin, | NEGATIVEComment: Testing | | EXTERNAL | | | Urine | performed at [facility], [address] | | LAB | | | | [address], | | | | | | [place] [address] | | | | + + + + + + | Glucose, | NEGATIVEComment: Testing | mg/dL | EXTERNAL | | | Urine | performed at [facility], [address] | | LAB | | | | [address], | | | | | | [place] [address] | | | | + + + [...] (500), | | | | | | order editor PAT SANDERS | | | | | | (4) on 09/26/2013 5:42:42 | | | | | | PM | | | | + + + + + + + + | Specimen | + + | | + + + + + | Narrative | Performed At | + + + | [facility] | EXTERNAL LAB | + + [...] EXTERNAL | | | | performed at [facility];[address] | | LAB | | | | [address];[place] | | | | | | [address] | | | | + + + + + -+ | Red Blood | 3.76Comment: Testing | 3.70 - 5.10 | EXTERNAL | | | Cells | performed at [facility];[address] | M/uL | LAB | | | Counted | [address];[place] | | | | | | [address] | | | | + + + + + -+ | Hemoglobin | 12.2Comment: Testing | 11.3 - 15.5 | EXTERNAL | | | | performed at [facility];[address] | g/dL | LAB | | | | [address];[place] | | | | | | [address] | | | | + + + + + -+ | Hematocrit, | 36.4Comment: Testing | 34.0 - 46.0 % | EXTERNAL | | | POC | performed at [facility];[address] | | LAB | | | | [address];[place] | | | | | | [address] | | | | + + + + + -+ | MCV | 96.9Comment: Testing | 80.0 - 100.0 fl | EXTERNAL | | | | performed at [facility];[address] | | LAB | | | | [address];[place] | | | | | | [address] | | | | + + + + + -+ | MCH | 32.4Comment: Testing | 27.0 - 34.0 pg | EXTERNAL | | | | performed at [facility];[address] | | LAB | | | | [address];[place] | | | | | | [address] | | | | + + + + + -+ | MCHC | 33.5Comment: Testing | 32.0 - 35.5 | EXTERNAL | | | | performed at [facility];[address] | g/dL | LAB | | | | [address];[place] | | | | | | [address] | | | | + + + + + -+ | RDW-CV | 47.7Comment: Testing | 37 - 53 fl | EXTERNAL | | | | performed at [facility];[address] | | LAB | | | | [address];[place] | | | | | | [address] | | | | + + + + + -+ | Platelet | 339Comment: Testing | 150 - 400 K/uL | EXTERNAL | | | Count | performed at [facility];[address] | | LAB | | | Plasma | [address];[place] | | | | | | [address] | | | | + + + + + -+ | MPV | 6.3Comment: Testing | fl | EXTERNAL | | | | performed at [facility];[address] | | LAB | | | | [address];[place] | | | | | | [address] | | | | + + + + + -+ | Differentia | AUTOMATEDComment: | | EXTERNAL | | | l Type | Testing performed at | | LAB | | | | [facility];[address];[place] [address] | | | | + + + + + -+ | % Segmented | 82.6Comment: Testing | % | EXTERNAL | | | | performed at [facility];[address] | | LAB | | | Neutrophils | [address];[place] | | | | | | [address] | | | | + + + + + -+ | % | 10.1Comment: Testing | % | EXTERNAL | | | Lymphocytes | performed at [facility];[address] | | LAB | | | | [address];[place] | | | | | | [address] | | | | + + + + + -+ | % Monocytes | 4.8Comment: Testing | % | EXTERNAL | | | | performed at [facility];[address] | | LAB | | | | [address];[place] | | | | | | [address] | | | | + + + + + -+ | % | 1.7Comment: Testing | % | EXTERNAL | | | Eosinophils | performed at [facility];[address] | | LAB | | | | [address];[place] | | | | | | [address] | | | | + + + + + -+ | % Basophils | 0.8Comment: Testing | % | EXTERNAL | | | | performed at [facility];[address] | | LAB | | | | [address];[place] | | | | | | [address] | | | | + + + + + -+ | Absolute | 8.5 (H)Comment: Testing | 1.9 - 7.4 K/uL | EXTERNAL | | | Segmented | performed at [facility];[address] | | LAB | | | Neutrophils | [address];[place] | | | | | | [address] | | | | + + + + + -+ | Absolute | 1.0Comment: Testing | 1.0 - 3.9 K/uL | EXTERNAL | | | Lymphocytes | performed at [facility];[address] | | LAB | | | | [address];[place] | | | | | | [address] | | | | + + + + + -+ | Absolute | 0.5Comment: Testing | 0 - 0.8 K/uL | EXTERNAL | | | Monocytes | performed at [facility];[address] | | LAB | | | | [address];[place] | | | | | | [address] | | | | + + + + + -+ | Absolute | 0.2Comment: Testing | 0 - 0.5 K/uL | EXTERNAL | | | Eosinophils | performed at [facility];[address] | | LAB | | | | [address];[place] | | | | | | [address] | | | | + + + + + -+ | Absolute | 0.1Comment: Testing | 0 - 0.1 K/uL | EXTERNAL | | | Basophils | performed at [facility];[address] | | LAB | | | | [address];[place] | | | | | | [address] | | | | + + + + + -+ | Na | 141Comment: Testing | 135 - 143 | EXTERNAL | | | | performed at [facility];[address] | mmol/L | LAB | | | | [address];[place] | | | | | | [address] | | | | + + + + + -+ | K | 3.2 (L)Comment: Testing | 3.5 - 4.9 | EXTERNAL | | | | performed at [facility];[address] | mmol/L | LAB | | | | [address];[place] | | | | | | [address] | | | | + + + + + -+ | Cl | 105Comment: Testing | 99 - 109 mmol/L | EXTERNAL | | | | performed at [facility];[address] | | LAB | | | | [address];[place] | | | | | | [address] | | | | + + + + + -+ | CO2 | 25Comment: Testing | 23 - 32 mmol/L | EXTERNAL | | | | performed at [facility];[address] | | LAB | | | | [address];[place] | | | | | | [address] | | | | + + + + + -+ | Anion Gap | 14Comment: Testing | 5 - 20 mmol/L | EXTERNAL | | | | performed at [facility];[address] | | LAB | | | | [address];[place] | | | | | | [address] | | | | + + + + + -+ | Glucose, | 96Comment: Testing | 65 - 99 mg/dL | EXTERNAL | | | Fasting | performed at [facility];[address] | | LAB | | | | [address];[place] | | | | | | [address] | | | | + + + + + -+ | BUN | 8Comment: Testing | 8 - 25 mg/dL | EXTERNAL | | | | performed at [facility];[address] | | LAB | | | | [address];[place] | | | | | | [address] | | | | + + + + + -+ | Creatinine | 0.96Comment: Testing | 0.50 - 1.00 | EXTERNAL | | | | performed at [facility];[address] | mg/dL | LAB | | | | [address];[place] | | | | | | [address] | | | | + + + + + -+ | BUN/Creatin | 9Comment: Testing | | EXTERNAL | | | ine Ratio | performed at [facility];[address] | | LAB | | | | [address];[place] | | | | | | [address] | | | | + + + + + -+ | Calcium | 9.2Comment: Testing | 8.5 - 10.2 | EXTERNAL | | | | performed at [facility];[address] | mg/dL | LAB | | | | [address];[place] | | | | | | [address] | | | | + + + + + -+ | Protein, | 6.7Comment: Testing | 6.3 - 8.2 g/dL | EXTERNAL | | | Total | performed at [facility] [place];[address] | | LAB | | | | [address];[place] | | | | | | [address] | | | | + + + + + -+ | Albumin | 2.5 (L)Comment: Testing | 3.3 - 4.8 g/dL | EXTERNAL | | | | performed at [facility] [place];[address] | | LAB | | | | [address];[place] | | | | | | [address] | | | | + + + + + -+ | Globulin | 4.2Comment: Testing | 1.3 - 4.9 g/dL | EXTERNAL | | | | performed at [facility] [place];[address] | | LAB | | | | [address];[place] | | | | | | [address] | | | | + + + + + -+ | A/G Ratio | 0.6 (L)Comment: Testing | 1.0 - 2.4 | EXTERNAL | | | | performed at [facility] [place];[address] | | LAB | | | | [address];[place] | | | | | | [address] | | | | + + + + + -+ | Bilirubin | 0.5Comment: Testing | 0.1 - 1.5 mg/dL | EXTERNAL | | | Total | performed at [facility] [place];[address] | | LAB | | | | [address];[place] | | | | | | [address] | | | | + + + + + -+ | ALP, | 73Comment: Testing | 35 - 115 U/L | EXTERNAL | | | External | performed at [facility] [place];[address] | | LAB | | | | [address];[place] | | | | | | [address] | | | | + + + + + -+ | AST | 57 (H)Comment: Testing | 10 - 45 U/L | EXTERNAL | | | | performed at [facility] [place];[address] | | LAB | | | | [address];[place] | | | | | | [address] | | | | + + + + + -+ | ALT | 103 (H)Comment: Testing | 10 - 65 U/L | EXTERNAL | | | | performed at [facility] [place];[address] | | LAB | | | | [address];[place] | | | | | | [address] | | | | + + + [...] | | | | | | at [facility] [place];[address];[place] [id number] | | | | + + + + + -+ | CK, Total | 79Comment: Testing | 30 - 240 U/L | EXTERNAL | | | | [facility] [facility];[address] | | LAB | | | | [address];[place] | | | | | | [address] | | | | + + + [...] | | | | | performed at [facility];[address] | | | | | | [address];[place] | | | | | | [address] | | | | + + + + + -+ | aPTT, | 33 (H)Comment: Testing | 23 - 32 seconds | EXTERNAL | | | Patient | performed at [facility];[address] | | LAB | | | | [address];[place] | | | | | | [address] | | | | + + + + + -+ | CK-MB | 3.3Comment: Testing | 0.5 - 3.6 ng/mL | EXTERNAL | | | | performed at [facility];[address] | | LAB | | | | [address];[place] | | | | | | [address] | | | | + + + [...] | | | | | | ACUTE [place] Testing | | | | | | performed at [facility];[address] | | | | | | [address];[place], [place] | | | | | | [address] | | | | + + + [...] | | | | | performed at [facility];[address] | | | | | | [facility];[place], [place] | | | | | | [address] | | | | + + + [...] EXTERNAL | | | | performed at [facility];[address] | | LAB | | | | [address];[place], [place] | | | | | | [address] | | | | + + + [...] EXTERNAL | | | | performed at [facility];[address] | | LAB | | | | [address];[place] | | | | | | [address] | | | | + + + [...] EXTERNAL | | | | performed at [facility];[address] | | LAB | | | | [address] [facility];[place], [place] | | | | | | [address] | | | | + + + [...]
--- OUTSIDE RECORDS SUMMARY | ~2019-10-06 | XMS | Encounter Summary ---
Demographics + + + | Address | [address] | | | [place] [address] | + + + | Home Phone | | + + + | Preferred Language | Unknown | + + + | Marital Status | Unknown | + + + | Pentecostal Affiliation | Unknown | + + + | Race | Unknown | + + + | Ethnic Group | Unknown | + + + Author + + + | Author | [facility] | | | and [place] | + + + | Organization | [facility] | | | and [place] | + + + | Address | Unknown | + + + | Phone | Unavailable | + + + Care Team Providers + +------+ + | Care Wire Bender Name | Role | Phone | + +------+ + PCP | Unavailable | + +------+ + Encounter Details +--------+ + + + + | Date | Type | Department | Care Team | Description | +--------+ + + + + | 07/28/ | Hospital | [facility] | | | | 2006 | Encounter | MED CTR XRAY [address] | | | | | | [address] | | | | | | [place] [address] | | | | | | [phone] | | | +--------+ + + + + Social History + +-------+ +--------+------+ | Tobacco Use | Types | Packs/Day | Years | Date | | | | | Used | | + +-------+ +--------+------+ | Never Assessed | | | | | + +-------+ [...] + + documented as of this encounter Plan of Treatment Not on filedocumented as of this encounter Visit Diagnoses Not on filedocumented in this encounter"
--- OUTSIDE RECORDS SUMMARY | ~2019-10-06 | XMS | Encounter Summary ---
Demographics + + + | Address | [address] | | | [place] [address] | + + + | Home Phone | | + + + | Preferred Language | Unknown | + + + | Marital Status | Unknown | + + + | Zoroastrianism Affiliation | Unknown | + + + | Race | Unknown | + + + | Ethnic Group | Unknown | + + + Author + + + | Author | [facility] | | | and [place] | + + + | Organization | [facility] | | | and [place] | + + + | Address | Unknown | + + + | Phone | Unavailable | + + + Care Team Providers + +------+ + | Care Ex Chef Name | Role | Phone | + +------+ + PCP | Unavailable | + +------+ + Encounter Details +--------+ + + + + | Date | Type | Department | Care Team | Description | +--------+ + + + + | 07/28/ | Hospital | [facility] | | | | 2006 | Encounter | MED CTR XRAY [address] | | | | | | [address] | | | | | | [place] [address] | | | | | | [phone] | | | +--------+ + + + [...]
--- OUTSIDE RECORDS SUMMARY | ~2019-10-06 | XMS | Clinical Summary ---
Demographics + + + | Address | [address] | | | [place] [address] | + + + | Home Phone | | + + + | Preferred Language | Unknown | + + + | Marital Status | Unknown | + + + | Hindu Affiliation | Unknown | + + + | Race | Unknown | + + + | Ethnic Group | Unknown | + + + Author + + + | Author | [facility] | | | and [place] | + + + | Organization | [facility] | | | and [place] | + + + | Address | Unknown | + + + | Phone | Unavailable | + + + Care Team Providers + +------+ + | Care Reproductive Surgeon Name | Role | Phone | + [...]
--- OUTSIDE RECORDS SUMMARY | ~2019-10-06 | XMS | Encounter Summary ---
Demographics + + + | Address | [address] | | | [place] [address] | + + + | Home Phone | | + + + | Preferred Language | Unknown | + + + | Marital Status | Unknown | + + + | Congregation Affiliation | Unknown | + + + | Race | Unknown | + + + | Ethnic Group | Unknown | + + + Author + + + | Author | [facility] | | | and [place] | + + + | Organization | [facility] | | | and [place] | + + + | Address | Unknown | + + + | Phone | Unavailable | + + + Care Team Providers + +------+ + | Care Manager Of Patient Name | Role | Phone | + +------+ + PCP | Unavailable | + +------+ + Encounter Details +--------+ + + + + | Date | Type | Department | Care Team | Description | +--------+ + + + + | 07/28/ | Hospital | [facility] | | | | 2006 | Encounter | MED CTR XRAY [address] | | | | | | [address] | | | | | | [place] [address] | | | | | | [phone] | | | +--------+ + + + [...]
--- OUTSIDE RECORDS SUMMARY | ~2019-10-06 | XMS | Encounter Summary ---
Demographics + + + | Address | [address] | | | [place] [address] | + + + | Home Phone | | + + + | Preferred Language | Unknown | + + + | Marital Status | Unknown | + + + | Sikh Affiliation | Unknown | + + + | Race | Unknown | + + + | Ethnic Group | Unknown | + + + Author + + + | Author | [facility] | | | and Bryceana | + + + | Organization | [facility] | | | and [place]ce[place] | + + + | Address | Unknown | + + + | Phone | Unavailable | + + + Care Team Providers + +------+ + | Care Cotton Dispatcher Name | Role | Phone | + +------+ + PCP | Unavailable | + +------+ + Encounter Details +--------+ + + + + | Date | Type | Department | Care Team | Description | +--------+ + + + + | 09/26/ | Hospital | [facility] | Galdino Almonte | Chest pain; Elevated | | 2013 - | Encounter | [facility] | Cuauhtemoc Armas MD [address] | troponin; | | | | CLINICAL DECISION | [address] | Hypokalemia; | | 09/27/ | | [address] | [place] [address] | Bilateral pleural | | 2013 | | [place], [place] | [phone] | effusion; Elevated | | | | [phone] | | LFTs; Hypertension; | | | | [phone] | | Hyperlipidemia; | | | | [...] Summaries by Marvel Hemphill MD at 09/27/13 1936 Author: Marvel Hemphill MD Service: Hospitalist Author Type: Physician Filed: 09/30/131849 Date of Service: 09/27/131724 Status: Signed Hematology Specialist: Marvel Hemphill MD (Physician) Related Notes: Original Note by Marvel Hemphill MD (Physician) filed at 09/27/13 17 31 [facility] Service: Hospitalist Physician Discharge Summary Pt: Akua Brizuela AGE/SEX: 78 y.o. female ROOM: [address] [place], [place] [address] PCP: KASI WEST : 1935 Admit date: [...] hype rtension, hyperlipidemia, was initially admitted to [facility] for Escherichia col i sepsis due to pyelonephritis. She was also diagnosed as having pneumonia. Patient was disc harged yesterday from the hospital after she stayed for 5 days. Yesterday while at home, she was eating yogurt and started having chest pain. She went to [facility] emergency department of [facility], where she was found to have elevated tropon in of 0.58 and EKG showed chronic left bundle branch block. CT of chest was also done that w as negative for pulmonary embolism or pneumonia. As [facility], hence patient was transferred and admitted under hospitalist care in [facility]. HOSPITAL COURSE Patient remained chest pain free, [...] troponin l eak and not due to OR. Patient has history of hypertension and hyperlipidemia, but somehow her antihypertensives a nd anticholesterol medications were discontinued while she was at [facility]. I sutton ve advised her to follow [...] hours No results found for this basename: PHART:3,PO2ART:3,MIL2CIJ:3,Y0COLVQR:3,BEART:[address] 168 hours Lab [...] Refills: 0 Commonly known as: KEFLEX Cholecalciferol 68715 UNITS Tabs Refills: 0 fish oil-omega-3 fatty [...] (none) Author Type: Registered Nurse Filed: 09/27/13 1898 Date of Service: 09/27/131752 Status: Signed Hematology Specialist: Catherine Moncada RN (Registered Nurse) D/c instructions given and discussed, pt. States understanding. daughter providing transpor tation home. Pt. To f/u with pcp on Wednesday. Catherine Moncada RN onver deborah Transaction, Provider Unknown - 09/27/2013 2:53 PM PDT Case Management by GIN Suh at 09/27/13 4388 Author: GIN Suh Service: (none) Author Type: Storage Management Consultant Filed: 09/27/13 0805 Date of Service: 09/27/13 1453 Status: Signed Hematology Specialist: GIN Suh (Storage Management Consultant) 09/27/13 1400 Discharge Planning Evaluation Admitting Diagnosis [...] return to her prior living situation in [place] with SO. Suma Jeter onver deborah Transaction, Provider Unknown - 09/26/2013 8:16 PM PDT Progress Notes by Mirella Currie RPH at 09/26/132015 Author: Mirella Currie RPH Service: (none) Author Type: Pharmacist Filed: 09/26/132015 Date of Service: 09/26/132015 Status: Signed Hematology Specialist: Mirella Currie RPH (Pharmacist) Clinical Pharmacy Note: [...] Author: GIN Monteiro Service: (none) Author Type: Public Relations Filed: 09/26/131905 Date of Service: 09/26/131905 Status: Signed Hematology Specialist: GIN Monteiro (Public Relations) Cm attempted to meet with patient; pt asleep and unable to answer questions. F/U with famil y when they are back at hospital. onver deborah Transaction, Provider Unknown - 09/26/2013 3:43 PM PDT Progress Notes by Mirella Currie RPH at 09/26/13 1543 Author: Mirella Currie RPH Service: (none) Author Type: Pharmacist Filed: 09/26/13 154 Date of Service: 09/26/131542 Status: Signed Hematology Specialist: Mirella Currie RPH (Pharmacist) Clinical Pharmacy Note: [...] | | | | | | ACUTE OR Testing | | | | | | performed at [facility];[address] | | | | | | [address];[place], [place] | | | | | | [address] | | | | + + + [...] Excursion: 1.18 cm | | | E-F [place]: 0.03 m/s EPSS: 0.36 cm HR: 68 [...] TV A Jonathan: 0.20 m/s TV Dec [place]: 4.63 m/s2 TV Dec | | | Time: 81.78 ms TV E Jonathan: 0.37 m/s TV E/A Ratio: 1.85 | | | Site Safety Coordinator: EDILMA Authenticated by: Delroy Jensen MD Report [...] Diam: 3.21 cmLA/Ao: 1.08D-E Excursion: 1.18 cmE-F [place]: 0.03 m/sEPSS: 0.36 | | cmHR: 68 BPMAV maxP.05 mmHgAV meanP.51 mmHgAV Vmax: 1.32 m/Eduardo Vmean: | | 1.02 m/Eduardo VTI: 30.57 cmAVA Vmax: 2.69 cm2AVA (VTI): 2.43 jo6CGWE Dopp: 3.22 | | l/vhrt3TMPS Dopp: 5.09 l/minHR: 68.53 BPMLVOT maxP.07 mmHgLVOT [...] 2.30 m/sTV A Jonathan: 0.20 m/sTV Dec [place]: 4.63 m/s2TV Dec Time: 81.78 | | msTV E Jonathan: 0.37 m/sTV E/A Ratio: 1.85 Site Safety Coordinator: GDAuthenticated by: Delroy | | Alqaisi MDReport [...] | |D-E Excursion: 1.18 cm | |E-F [place]: 0.03 m/s | |EPSS: 0.36 cm | [...] A Jonathan: 0.20 m/s | |TV Dec [place]: 4.63 m/s2 | |TV Dec Time: 81.78 ms | |TV E Jonathan: 0.37 m/s | |TV E/A Ratio: 1.85 | | | |Site Safety Coordinator: EDILMA | |Authenticated by: Delroy Jensen MD [...] | | | Patient | performed at [facility];[address] | | LAB | | | | [facility];[place], [place] | | | | | | [address] | | | | + + + [...] | | | | | performed at [facility] | | | | | | [facility];[place], [place] | | | | | | [address] | | | | + + + [...] | | | | | [place] [address] | | | | + + + + + + | Red Blood | 3.38 (L)Comment: Testing | 3.70 - 5.10 | EXTERNAL | | | Cells | performed at [facility], [address] | M/uL | LAB | | | Counted | [address], | | | | | | [place] [address] | | | | + + + + + + | Hemoglobin | 11.4Comment: Testing | 11.3 - 15.5 | EXTERNAL | | | | performed at [facility], [address] | g/dL | LAB | | | | [address], | | | | | | [place] [address] | | | | + + + + + + | Hematocrit, | 32.3 (L)Comment: Testing | 34.0 - 46.0 % | EXTERNAL | | | POC | performed at [facility], [address] | | LAB | | | | [address], | | | | | | [place] [address] | | | | + + + + + + | MCV | 95.4Comment: Testing | 80.0 - 100.0 fl | EXTERNAL | | | | performed at [facility], [address] | | LAB | | | | [address], | | | | | | [place] [address] | | | | + + + + + + | MCH | 33.6Comment: Testing | 27.0 - 34.0 pg | EXTERNAL | | | | performed at [facility], [address] | | LAB | | | | [address], | | | | | | [place] [address] | | | | + + + + + + | MCHC | 35.3Comment: Testing | 32.0 - 35.5 | EXTERNAL | | | | performed at [facility], [address] | g/dL | LAB | | | | [address], | | | | | | [place] [address] | | | | + + + + + + | RDW-CV | 47.3Comment: Testing | 37 - 53 fl | EXTERNAL | | | | performed at [facility], [address] | | LAB | | | | [address], | | | | | | [place] [address] | | | | + + + + + + | Platelet | 306Comment: Testing | 150 - 400 K/uL | EXTERNAL | | | Count | performed at [facility], [address] | | LAB | | | Plasma | [address], | | | | | | [place] [address] | | | | + + + + + + | MPV | 6.8Comment: Testing | fl | EXTERNAL | | | | performed at [facility], [address] | | LAB | | | | [address], | | | | | | [place] [address] | | | | + + + + + + | Differentia | AUTOMATEDComment: | | EXTERNAL | | | l Type | Testing performed at | | LAB | | | | [facility], [address] | | | | | | [place] | | | | | | [address] | | | | + + + + + + | % Segmented | 85.0Comment: Testing | % | EXTERNAL | | | | performed at [facility], [address] | | LAB | | | Neutrophils | [address], | | | | | | [place] [address] | | | | + + + + + + | % | 6.6Comment: Testing | % | EXTERNAL | | | Lymphocytes | performed at [facility], [address] | | LAB | | | | [address], | | | | | | [place] [address] | | | | + + + + + + | % Monocytes | 6.4Comment: Testing | % | EXTERNAL | | | | performed at [facility], [address] | | LAB | | | | [address], | | | | | | [place] [address] | | | | + + + + + + | % | 1.8Comment: Testing | % | EXTERNAL | | | Eosinophils | performed at [facility], [address] | | LAB | | | | [address], | | | | | | [place] [address] | | | | + + + + + + | % Basophils | 0.2Comment: Testing | % | EXTERNAL | | | | performed at [facility], [address] | | LAB | | | | [address], | | | | | | [place] [address] | | | | + + + + + + | Absolute | 9.2 (H)Comment: Testing | 1.9 - 7.4 K/uL | EXTERNAL | | | Segmented | performed at [facility], [address] | | LAB | | | Neutrophils | [address], | | | | | | [place] [address] | | | | + + + + + + | Absolute | 0.7 (L)Comment: Testing | 1.0 - 3.9 K/uL | EXTERNAL | | | Lymphocytes | performed at [facility], [address] | | LAB | | | | [address], | | | | | | [place] [address] | | | | + + + + + + | Absolute | 0.7Comment: Testing | 0 - 0.8 K/uL | EXTERNAL | | | Monocytes | performed at [facility], [address] | | LAB | | | | [address], | | | | | | [place] [address] | | | | + + + + + + | Absolute | 0.2Comment: Testing | 0 - 0.5 K/uL | EXTERNAL | | | Eosinophils | performed at [facility], [address] | | LAB | | | | [address], | | | | | | [place] [address] | | | | + + + + + + | Absolute | 0.0Comment: Testing | 0 - 0.1 K/uL | EXTERNAL | | | Basophils | performed at [facility], [address] | | LAB | | | | [address], | | | | | | [place] [address] | | | | + + + [...] EXTERNAL | | | | performed at [facility], [address] | | LAB | | | | [address], | | | | | | [place] [address] | | | | + + + [...] EXTERNAL | | | | performed at [facility], [address] | | LAB | | | | [address], | | | | | | [place] [address] | | | | + + + [...] | | | | | [place] [address] | | | | + + + + + + | K | 3.4 (L)Comment: Testing | 3.5 - 4.9 | EXTERNAL | | | | performed at [facility], [address] | mmol/L | LAB | | | | [address], | | | | | | [place] [address] | | | | + + + + + + | Cl | 105Comment: Testing | 99 - 109 mmol/L | EXTERNAL | | | | performed at [facility], [address] | | LAB | | | | [address], | | | | | | [place] [address] | | | | + + + + + + | CO2 | 27Comment: Testing | 23 - 32 mmol/L | EXTERNAL | | | | performed at [facility], [address] | | LAB | | | | [address], | | | | | | [place] [address] | | | | + + + + + + | Anion Gap | 10Comment: Testing | 5 - 20 mmol/L | EXTERNAL | | | | performed at [facility], [address] | | LAB | | | | [address], | | | | | | [place] [address] | | | | + + + + + + | Glucose, | 91Comment: Testing | 65 - 99 mg/dL | EXTERNAL | | | Fasting | performed at [facility], [address] | | LAB | | | | [address], | | | | | | [place] [address] | | | | + + + + + + | BUN | 8Comment: Testing | 8 - 25 mg/dL | EXTERNAL | | | | performed at [facility], [address] | | LAB | | | | [address], | | | | | | [place] [address] | | | | + + + + + + | Creatinine | 0.92Comment: Testing | 0.50 - 1.00 | EXTERNAL | | | | performed at [facility], [address] | mg/dL | LAB | | | | [address], | | | | | | [place] [address] | | | | + + + + + + | BUN/Creatin | 9Comment: Testing | | EXTERNAL | | | ine Ratio | performed at [facility], [address] | | LAB | | | | [address], | | | | | | [place] [address] | | | | + + + + + + | Calcium | 9.7Comment: Testing | 8.5 - 10.2 | EXTERNAL | | | | performed at [facility], [address] | mg/dL | LAB | | | | [address], | | | | | | [place] [address] | | | | + + + [...] | | | | | [place] [address] | | | | + + + [...] | | | | | | ACUTE OR Testing | | | | | | performed at [facility] | | | | | | [address];[place], [place] | | | | | | [address] | | | | + + + [...] | | | | | [place] [address] | | | | + + + + + + | RBC, UA | 1-5Comment: Testing | 0 - 5 /hpf | EXTERNAL | | | | performed at [facility], [address] | | LAB | | | | [address], | | | | | | [place] [address] | | | | + + + + + + | Epithelial | 26-50Comment: Testing | /lpf | EXTERNAL | | | Cells | performed at [facility], [address] | | LAB | | | | [address], | | | | | | [place] [address] | | | | + + + + + + | Bacteria, | NONE SEENComment: | | EXTERNAL | | | UA | CULTURE TO FOLLOWTesting | | LAB | | | | performed at [facility], [address] | | | | | | [address], | | | | | | [place] [address] | | | | + + + + + + | HYALINE | NONE SEENComment: | | EXTERNAL | | | CASTS UA | Testing performed at | | LAB | | | | [facility], [address] | | | | | | [place] | | | | | | [address] | | | | + + + + + + | Spermatozoa | NOT PRESENTComment: | | EXTERNAL | | | , Urine | Testing performed at | | LAB | | | | [facility], [address] | | | | | | [place], [place] | | | | | | [address] | | | | + + + [...] | | | | | [place] [address] | | | | + + + + + + | Clarity | CLEARComment: Testing | | EXTERNAL | | | | performed at [facility], [address] | | LAB | | | | [address], | | | | | | [place] [address] | | | | + + + + + + | Specific | 1.015Comment: Testing | 1.002 - 1.030 | EXTERNAL | | | [place], | performed at [facility], [address] | | LAB | | | Urine | [address], | | | | | | [place] [address] | | | | + + + + + + | Leukocyte | TRACE (A)Comment: | | EXTERNAL | | | Esterase, | Testing performed at | | LAB | | | Urine | [facility], [address] | | | | | | [place] | | | | | | [address] | | | | + + + + + + | Nitrite, | NEGATIVEComment: Testing | | EXTERNAL | | | Urine | performed at [facility], [address] | | LAB | | | | [address], | | | | | | [place] [address] | | | | + + + + + + | Urobilinoge | 0.2Comment: Testing | mg/dL | EXTERNAL | | | n, Urine | performed at [facility], [address] | | LAB | | | | [address], | | | | | | [place] [address] | | | | + + + + + + | Protein, | NEGATIVEComment: Testing | mg/dL | EXTERNAL | | | Urine | performed at [facility], [address] | | LAB | | | | [address], | | | | | | [place] [address] | | | | + + + + + + | pH, Urine | 7.0Comment: Testing | 5.0 - 8.0 | EXTERNAL | | | | performed at [facility], [address] | | LAB | | | | [address], | | | | | | [place] [address] | | | | + + + + + + | Blood, | TRACE (A)Comment: | | EXTERNAL | | | Urine | Testing performed at | | LAB | | | | [facility], [address] | | | | | | [place] | | | | | | [address] | | | | + + + + + + | Ketones | NEGATIVEComment: Testing | mg/dL | EXTERNAL | | | | performed at [facility], [address] | | LAB | | | | [address], | | | | | | [place] [address] | | | | + + + + + + | Bilirubin, | NEGATIVEComment: Testing | | EXTERNAL | | | Urine | performed at [facility], [address] | | LAB | | | | [address], | | | | | | [place] [address] | | | | + + + + + + | Glucose, | NEGATIVEComment: Testing | mg/dL | EXTERNAL | | | Urine | performed at [facility], [address] | | LAB | | | | [address], | | | | | | [place] [address] | | | | + + + [...] (500), | | | | | | editor sound PAT SANDERS | | | | | | (4) on 09/26/2013 5:42:42 | | | | | | PM | | | | + + + + + + + + | Specimen | + + | | + + + + + | Narrative | Performed At | + + + | [facility] | EXTERNAL LAB | + [...] EXTERNAL | | | | performed at [facility];[address] | | LAB | | | | [address];[place] | | | | | | [address] | | | | + + + + + -+ | Red Blood | 3.76Comment: Testing | 3.70 - 5.10 | EXTERNAL | | | Cells | performed at [facility];[address] | M/uL | LAB | | | Counted | [address];[place] | | | | | | [address] | | | | + + + + + -+ | Hemoglobin | 12.2Comment: Testing | 11.3 - 15.5 | EXTERNAL | | | | performed at [facility];[address] | g/dL | LAB | | | | [address];[place] | | | | | | [address] | | | | + + + + + -+ | Hematocrit, | 36.4Comment: Testing | 34.0 - 46.0 % | EXTERNAL | | | POC | performed at [facility];[address] | | LAB | | | | [address];[place] | | | | | | [address] | | | | + + + + + -+ | MCV | 96.9Comment: Testing | 80.0 - 100.0 fl | EXTERNAL | | | | performed at [facility];[address] | | LAB | | | | [address];[place] | | | | | | [address] | | | | + + + + + -+ | MCH | 32.4Comment: Testing | 27.0 - 34.0 pg | EXTERNAL | | | | performed at [facility];[address] | | LAB | | | | [address];[place] | | | | | | [address] | | | | + + + + + -+ | MCHC | 33.5Comment: Testing | 32.0 - 35.5 | EXTERNAL | | | | performed at [facility];[address] | g/dL | LAB | | | | [address];[place] | | | | | | [address] | | | | + + + + + -+ | RDW-CV | 47.7Comment: Testing | 37 - 53 fl | EXTERNAL | | | | performed at [facility];[address] | | LAB | | | | [address];[place] | | | | | | [address] | | | | + + + + + -+ | Platelet | 339Comment: Testing | 150 - 400 K/uL | EXTERNAL | | | Count | performed at [facility];[address] | | LAB | | | Plasma | [address];[place] | | | | | | [address] | | | | + + + + + -+ | MPV | 6.3Comment: Testing | fl | EXTERNAL | | | | performed at [facility];[address] | | LAB | | | | [address];[place] | | | | | | [address] | | | | + + + + + -+ | Differentia | AUTOMATEDComment: | | EXTERNAL | | | l Type | Testing performed at | | LAB | | | | [facility];[address];[place] [address] | | | | + + + + + -+ | % Segmented | 82.6Comment: Testing | % | EXTERNAL | | | | performed at [facility];[address] | | LAB | | | Neutrophils | [address];[place] | | | | | | [address] | | | | + + + + + -+ | % | 10.1Comment: Testing | % | EXTERNAL | | | Lymphocytes | performed at [facility];[address] | | LAB | | | | [address];[place] | | | | | | [address] | | | | + + + + + -+ | % Monocytes | 4.8Comment: Testing | % | EXTERNAL | | | | performed at [facility];[address] | | LAB | | | | [address];[place] | | | | | | [address] | | | | + + + + + -+ | % | 1.7Comment: Testing | % | EXTERNAL | | | Eosinophils | performed at [facility];[address] | | LAB | | | | [address];[place] | | | | | | [address] | | | | + + + + + -+ | % Basophils | 0.8Comment: Testing | % | EXTERNAL | | | | performed at [facility];[address] | | LAB | | | | [address];[place] | | | | | | [address] | | | | + + + + + -+ | Absolute | 8.5 (H)Comment: Testing | 1.9 - 7.4 K/uL | EXTERNAL | | | Segmented | performed at [facility];[address] | | LAB | | | Neutrophils | [address];[place] | | | | | | [address] | | | | + + + + + -+ | Absolute | 1.0Comment: Testing | 1.0 - 3.9 K/uL | EXTERNAL | | | Lymphocytes | performed at [facility];[address] | | LAB | | | | [address];[place] | | | | | | [address] | | | | + + + + + -+ | Absolute | 0.5Comment: Testing | 0 - 0.8 K/uL | EXTERNAL | | | Monocytes | performed at [facility];[address] | | LAB | | | | [address];[place] | | | | | | [address] | | | | + + + + + -+ | Absolute | 0.2Comment: Testing | 0 - 0.5 K/uL | EXTERNAL | | | Eosinophils | performed at [facility];[address] | | LAB | | | | [address];[place] | | | | | | [address] | | | | + + + + + -+ | Absolute | 0.1Comment: Testing | 0 - 0.1 K/uL | EXTERNAL | | | Basophils | performed at [facility];[address] | | LAB | | | | [address];[place] | | | | | | [address] | | | | + + + + + -+ | Na | 141Comment: Testing | 135 - 143 | EXTERNAL | | | | performed at [facility];[address] | mmol/L | LAB | | | | [address];[place] | | | | | | [address] | | | | + + + + + -+ | K | 3.2 (L)Comment: Testing | 3.5 - 4.9 | EXTERNAL | | | | performed at [facility];[address] | mmol/L | LAB | | | | [address];[place] | | | | | | [address] | | | | + + + + + -+ | Cl | 105Comment: Testing | 99 - 109 mmol/L | EXTERNAL | | | | performed at [facility];[address] | | LAB | | | | [address];[place] | | | | | | [address] | | | | + + + + + -+ | CO2 | 25Comment: Testing | 23 - 32 mmol/L | EXTERNAL | | | | performed at [facility];[address] | | LAB | | | | [address];[place] | | | | | | [address] | | | | + + + + + -+ | Anion Gap | 14Comment: Testing | 5 - 20 mmol/L | EXTERNAL | | | | performed at [facility];[address] | | LAB | | | | [address];[place] | | | | | | [address] | | | | + + + + + -+ | Glucose, | 96Comment: Testing | 65 - 99 mg/dL | EXTERNAL | | | Fasting | performed at [facility];[address] | | LAB | | | | [address];[place] | | | | | | [address] | | | | + + + + + -+ | BUN | 8Comment: Testing | 8 - 25 mg/dL | EXTERNAL | | | | performed at [facility];[address] | | LAB | | | | [address];[place] | | | | | | [address] | | | | + + + + + -+ | Creatinine | 0.96Comment: Testing | 0.50 - 1.00 | EXTERNAL | | | | performed at [facility];[address] | mg/dL | LAB | | | | [address];[place] | | | | | | [address] | | | | + + + + + -+ | BUN/Creatin | 9Comment: Testing | | EXTERNAL | | | ine Ratio | performed at [facility];888 | | LAB | | | | [address];[place] | | | | | | [address] | | | | + + + + + -+ | Calcium | 9.2Comment: Testing | 8.5 - 10.2 | EXTERNAL | | | | performed at [facility];888 | mg/dL | LAB | | | | [address];[place] | | | | | | [id number] | | | | + + + + + -+ | Protein, | 6.7Comment: Testing | 6.3 - 8.2 g/dL | EXTERNAL | | | Total | performed at [facility];888 | | LAB | | | | [address];[place] | | | | | | [id number] | | | | + + + + + -+ | Albumin | 2.5 (L)Comment: Testing | 3.3 - 4.8 g/dL | EXTERNAL | | | | performed at [facility];888 | | LAB | | | | [address];[place] | | | | | | [address] | | | | + + + + + -+ | Globulin | 4.2Comment: Testing | 1.3 - 4.9 g/dL | EXTERNAL | | | | performed at [facility];888 | | LAB | | | | [address];[place] | | | | | | [address] | | | | + + + + + -+ | A/G Ratio | 0.6 (L)Comment: Testing | 1.0 - 2.4 | EXTERNAL | | | | performed at [facility];888 | | LAB | | | | [address];[place] | | | | | | [address] | | | | + + + + + -+ | Bilirubin | 0.5Comment: Testing | 0.1 - 1.5 mg/dL | EXTERNAL | | | Total | performed at [facility];[address] | | LAB | | | | [address];[place] | | | | | | [address] | | | | + + + + + -+ | ALP, | 73Comment: Testing | 35 - 115 U/L | EXTERNAL | | | External | performed at [facility];888 | | LAB | | | | [address];[place] | | | | | | [address] | | | | + + + + + -+ | AST | 57 (H)Comment: Testing | 10 - 45 U/L | EXTERNAL | | | | performed at [facility];[address] | | LAB | | | | [address];[place] | | | | | | [phone] | | | | + + + + + -+ | ALT | 103 (H)Comment: Testing | 10 - 65 U/L | EXTERNAL | | | | performed at [facility];888 | | LAB | | | | [address];[place] | | | | | | [address] | | | | + + + [...] | | | | | | at [facility];[address];[place] [address] | | | | + + + + + -+ | CK, Total | 79Comment: Testing | 30 - 240 U/L | EXTERNAL | | | | performed at [facility];[address] | | LAB | | | [address];[place] | | | | | | [address] | | | | + + + [...] | | | | | performed at [facility];[address] | | | | | [address];[place] | | | | | | [address] | | | | + + + + + -+ | aPTT, | 33 (H)Comment: Testing | 23 - 32 seconds | EXTERNAL | | | Patient | performed at [facility];[address] | | LAB | | | [address];[place] | | | | | | [address] | | | | + + + + + -+ | CK-MB | 3.3Comment: Testing | 0.5 - 3.6 ng/mL | EXTERNAL | | | | performed at [facility];[address] | | LAB | | | [address];[place] | | | | | | [address] | | | | + + + [...] | | | | | | ACUTE OR Testing | | | | | | performed at [facility];[address] | | | | | | [address];[place], [place] | | | | | | [address] | | | | + + + [...] | | | | | performed at [facility];[address] | | | | | | [facility];[place], [place] | | | | | | [address] | | | | + + + [...] EXTERNAL | | | | performed at [facility];[address] | | LAB | | | | [address];[place], [place] | | | | | | [address] | | | | + + + [...] EXTERNAL | | | | performed at [facility];[address] | | LAB | | | | [address];[place] | | | | | | [address] | | | | + + + [...] EXTERNAL | | | | performed at [facility];8 | | LAB | | | | [address] [facility];[place], [place] | | | | | | [address] | | | | + + + [...]
[~2019-10-06 11:59] MED LIST: ALENDRONATE SOD70 MG PO; ALPHA LIPOIC AC50 MG PO; ASCORBIC ACID500 M1 PO; ASPIRIN EC81 MG PO; CIPRO500 MG PO; CRESTOR10 MG PO; DAILY VALUE1 EACH PO; FISH OIL 1,0001 EAC5 PO; FISH OIL500 M1 PO; FOSAMAX70 MG PO; HYDROCODON-ACE1 EA11 PO; KEFLEX500 MG PO; LEVOTHYROXINE50 MCG PO; LOSARTAN POTASS50 MG PO; MACROBID 100 M100 MG PO; MULTI-DAY VITA1 EACH PO; NORCO 5-325 TA1 EACH PO; TRIAMTERENE-HC1 EAC1 PO; VITAMIN B-12500 MCG PO; VITAMIN C500 M1 PO; VITAMIN D250 MC1 PO
--- NOTE | 2019-10-06 17:53 | NUR ---
COVID SWAB COLLECTED IN ED
--- NOTE | 2019-10-06 17:55 | NUR ---
PATIENT ADMITTED FROM ER BY BED WITH DAVID WANG/NURSE CASTING WHEEL OPERATOR FOR SYNCOPAL EPISODE TODAY WITH HEAD INJURY NOTED. ASSESSMENT COMPLETED. DENIES PAIN OR DISCOMFORT AT THIS TIME. NEUROS WNL. CALL LIGHT IN REACH. BED RAILS UP X2. FRESH WATER PROVIDED.
[2019-10-06] MEDS ORDERED: COZAAR50 MG PO (17:58)
--- NOTE | 2019-10-06 19:59 | NUR ---
BACK WEDGER ROUNDING NOTE. PT RESTING IN BED EATING ICE CREAM, PRIMARY RN AT BEDSIDE. PT DENIES NEEDS AT THIS TIME. CALL LIGHT IN REACH. WHITE BOARD UPDATED.
--- NOTE | 2019-10-06 20:24 | NUR ---
PATIENT JUST FINISHED DINNER AND ATE 60% AND DRINK PO FLUIDS WELL. PATIENT ASKED FOR ICE CREAM AND A NEW GLASS OF ICE WATER WHICH WAS GIVEN. CALL LIGHT IN REACH AND PATIENT HAD NO OTHER NEEDS AT THIS TIME. NEURO CHECKS WNL.
--- NOTE | 2019-10-06 22:08 | NUR ---
PATIENT AMBULATED TO THE BATHROOM WITH STANDBY ASSIST AND VOIDED, BRUSHED HER TEETH AND GOT BACK INTO BED. PATIENT GOING TO WATCH TV FOR A LITTLE WHILE AND THEN TRY TO GO TO SLEEP.
--- NOTE | 2019-10-06 23:53 | NUR ---
PATIENT DOING OK AND UP TO THE BATHROOM WITH 1PSBA AND THEN BACK TO BED AMBULATING FINE. CALL LIGHT IN REACH.
--- NOTE | 2019-10-07 01:04 | NUR ---
PATIENT A LITTLE RESTLESS IN BED, BUT EYES CLOSED, RESPIRATIONS REGULAR AND EVEN, CALL LIGHT IN REACH.
--- NOTE | 2019-10-07 02:06 | NUR ---
PATIENT UP TO THE BATHROOM WITH 1PSBA AND THEN BACK TO BED AND IS CURRENTLY RESTING QUIETLY. CALL LIGHT IN REACH.
--- NOTE | 2019-10-07 04:29 | NUR ---
PATIENT HAS RESTED FAIRLY WEL THROUGH THE NIGHT, NEURO CHECKS HAVE ALL BEEN FINE. PATIENT HAS BASICALLY BEEN INDEPENDENT IN ROOM WITH 1PSB. PATIENT RESTING RIGHT NOW ON HER LEFT SIDE WITH EYES CLOSED RESPIRATIONS REGULAR AND EVEN. CALL LIGHT IN REACH.
--- NOTE | 2019-10-07 06:44 | NUR ---
PATIENT SITTING IN BED QUIETLY READING A BOOK. NO NEEDS AT THIS TIME.
--- NOTE | 2019-10-07 06:57 | EKG ---
[facility] [address] [facility] [place], [place] [address] Signed Normal sinus rhythm Left bundle branch block Abnormal ECG When compared with ECG of 01-JAN-2016 06:31, No significant change was found Confirmed by SURENDRA KWON MD ([id number]) on 10/07/2019 6:57:03 AM Electronically Signed By: SURENDRA KWON MD 10/07/19 0657 PATIENT NAME: AKUA BRIZUELA JAKOB Electrocardiogram DATE OF : 33 PHYSICIAN: SURENDRA KWON MD REPORT #: [id number] REPORT IS CONFIDENTIAL AND NOT TO BE RELEASED WITHOUT AUTHORIZATION
--- NOTE | 2019-10-07 07:08 | NUR ---
RECIEVE REPORT FROM DAVID CHANEY. PATIENT SITTING UP IN BED, READING A BOOK. REQUESTS CUP OF COFFEE, PROVIDED PER REQUEST. DENIES OTHER NEEDS. CALL LIGHT IN REACH. BED RAILS UP X2.
--- NOTE | 2019-10-07 08:20 | NUR ---
VS OBTAINED, ASSESSMENT COMPLETED. NEURO CHECK COMPLETED. DENIES PAIN OR DISCOMFORT AND OTHER NEEDS AT THIS TIME. EDUCATED ON COZAAR. VERBALIZES UNDERSTANDING. CALL LIGHT IN REACH, BED RAILS UP X2.
--- NOTE | 2019-10-07 09:14 | NUR ---
PATIENT SITTING UP IN BED. IV TAKEN OUT UPON RN REQUEST. CATH IN TACT AND LOOKED GOOD, RN NOTIFIED. CALL LIGHT IN REACH. NO FURTHER NEEDS AT THIS TIME.
--- NOTE | 2019-10-07 09:41 | NUR ---
MED REC COMPLETE
== END 2019-10-07 09:50 | disposition home or self-care (01) ==
LOC: ED 11:59 → MS 12:00
PROVIDERS: ADMIT Internal Medicine
DX: R55 Syncope and collapse (principal); I10 Essential (primary) hypertension; E78.5 Hyperlipidemia, unspecified; E03.9 Hypothyroidism, unspecified; Z88.1 Allergy status to other antibiotic agents; Z79.899 Other long term (current) drug therapy; Z79.82 Long term (current) use of aspirin
CPT/HCPCS: 36415; 70450; 71045; 80048; 80053; 81001; 83735; 84484; 85025; 93005; 93010; 96374; 97161; 99285-25; G0378; U0002

== ENCOUNTER 2021-06-25 07:29 | Observation (INO) | payer OTHER, MEDICARE ==
[~2021-06-25] VITALS: Ht 160 cm; Wt 60.6 kg
[~2021-06-25 07:29] MED LIST changes: +COZAAR50 MG PO
--- NOTE | 2021-06-25 12:30 | NUR ---
Pt has not arrived to the floor. Notified by Dr. Haley, pt will need placement to a SNF. Faxed chart to [facility].
[2021-06-25] MEDS ORDERED: ROSUVASTATIN CA10 MG PO (12:55)
--- NOTE | 2021-06-25 13:59 | NUR ---
PATIENT ADMITTED TO MED SURG.
[2021-06-25] MEDS ORDERED: CALTRATE 600 P1 EACH PO (14:32)
--- NOTE | 2021-06-25 14:36 | NUR ---
MED REC COMPLETE
--- NOTE | 2021-06-25 18:36 | NUR ---
Obtained orthostatic VS. Pt up to BSC with 2 person assist. Pt shaking on BSC. [place] scared and apprehensive about standing up again and transferring to bed. Pt had difficulity moving LLE. Daughter and 2 RNs assisted pt with transfer back to bed. Once sitting on edge of bed pt requested assistance getting legs into bed. Urine collected and sent for UA.
--- NOTE | 2021-06-25 19:29 | NUR ---
REPORT RECEIVED FROM DAY SHIFT RN. PT LYING IN BED ALERT AND ORIENTED. REPORTS PAIN IS TOLERABLE AT THIS TIME. IVF INFUSING WNL. WHITE BOARD UPDATED. CALL LIGHT IN REACH.
--- NOTE | 2021-06-25 19:39 | EKG ---
[facility] [address] [facility] [place], [place] [address] Signed Normal sinus rhythm Left bundle branch block Abnormal ECG When compared with ECG of 06-OCT-2019 12:13, No significant change was found Confirmed by HELENA SRINIVASAN DO ([id number]) on 06/25/2021 7:38:59 PM Electronically Signed By: HELENA SRINIVASAN DO 06/25/21 193 PATIENT NAME: AKUA BRIZUELA JAKOB Electrocardiogram DATE OF : 33 PHYSICIAN: HELENA SRINIVASAN DO REPORT #: [id number] REPORT IS CONFIDENTIAL AND NOT TO BE RELEASED WITHOUT AUTHORIZATION
--- NOTE | 2021-06-25 21:28 | NUR ---
EVENING ASSESSMENT COMPLETE. SCHEDULED MEDS ADMINISTERED PER EMAR. PT REPORTS LEFT ARM/LEFT HIP PAIN 2/10 AT REST. LEFT ARM IN CUFF AND COLLAR BRACE. CMS INTACT. BRISK CAP REFILL IN ALL EXTREMITIES. ASSISTED PT TO REPOSITION IN BED. PT DENIES NEEDING TO VOID AT THIS TIME. IVF BOLUS INFUSING ORDERED. PT DENIES QUESTIONS OR CONCERNS. CALL LIGHT IN REACH.
--- NOTE | 2021-06-25 23:43 | NUR ---
CALL LIGHT HAD DROPPED OFF SIDE OF PT BED. PT CALLING OUT FOR HELP. THIS RN IN ROOM. PT NEEDS TO VOID, 2PA TO PIVOT TX TO BSC TO VOID 300 ML YELLOW URINE. STAFF ASSIST WITH DANIA CARE. BACK TO BED, YESICA FAIR. ASSISTED PT TO REPOSITION IN BED. PT REPORTS INCREASED PAIN WITH ACTIVITY. DENIES NEEDS FOR PRN AT THIS TIME, BELIEVES PAIN WILL SETTLE. EDUCATION PROVIDED. PT WITH CALL LIGHT IN HAND AND SHOWN NURSE CALL ON SIDE RAILS.
--- NOTE | 2021-06-26 03:19 | NUR ---
CALL LIGHT ANSWERED. PT UP TO BSC WITH HEAVY 2PA TO VOID. STAFF ASSIST WITH DANIA CARE. BACK TO BED, YESICA FAIR. 2PA TO REPOSITION IN BED. LEFT ARM IN CUFF AND COLLAR BRACE. CMS INTACT IN ALL EXTREMITIES. PT REPORTS LEFT ARM/HIP PAIN 6/10 AFTER TRANSFER. PRN FOR PAIN ADMIN PER EMAR. VS AND I&O COMPLETE. 1L/NC PLACED FOR OXYGEN SATS <90% AFTER PRN FOR PAIN GIVEN. SpO2 BACK TO 94%. PT DENIES FURTHER NEEDS. CALL LIGHT IN REACH.
--- NOTE | 2021-06-26 04:30 | NUR ---
PO PRN ADMINISTERED FOR 4/10 LEFT HIP/ARM PAIN. HOB ELEVATED. PT USING LEFT HAND AT TIMES. LEFT ARM REMAINS IN CUFF AND COLLAR SLING. ASSISTED PT TO REPOSITION LEFT LEG. NO FURTHER NEEDS.
--- NOTE | 2021-06-26 05:42 | NUR ---
VS AND I&O OBTAINED. SCHEDULED MEDS ADMINISTERED PER EMAR. PT REPORTS SHE IS COMFORTABLE AT THIS TIME. LAB IN ROOM FOR MORNING DRAW.
--- NOTE | 2021-06-26 09:15 | NUR ---
Spoke with pt and her daughter. Daughter has arranged for she and her brother to move in with pt, a friend who is a cg will also work with pt. They plan on taking pt home tomorrow. Are getting wc, commode, cane, and raised toilet seat for pt. It will be in the home tomorrow. Pt has been using IV dilauded, but switched to po dilauded today. Pain is 3/10 while at rest, but an 8/10 with movement. She feels comfortable going home with family. I did suggest they use the wc van to go home and call EMS to get pt into the home as their are multiple steps. Daughter agrees and I will schedule the wc van for tomorrow when they have availability.
--- NOTE | 2021-06-26 09:33 | NUR ---
Patient in bed awake visiting with daughter, no distress. Collar and cuff in place at this time, cms intact to left arm. Patient reports tolerable pain level. PT plans to come see patient in a little while to work with her, pt receptive to plan. Patient tolerated breakfast well, consumed 50% approx. No current needs. Personal supplies and call light within reach.
--- NOTE | 2021-06-26 09:39 | NUR ---
Dilaudid 2mg po admin for reports of 3/10 left arm/shoulder pain.
--- NOTE | 2021-06-26 10:15 | NUR ---
PT WAS IN ROOM WITH CASE MANAGMENT UPON MY ENTRY INTO THE ROOM. WENT AHEAD AND LISTENDED IN ON THEIR PLANNING. AFTER SO, HEAD TO TOE ASSESSMENT WAS DONE CHARTED. WE WERE FINSIHING UP, OT CAME IN TO ASSESS PT WITH WHICH I REMAINED IN ROOM AND ASSISTED HER DURING THE PROCESS. AFTER THIS WAS DONE, MADE SURE PATIENT AND DAUGTHER DIDN'T NEED ANYTHING BEFORE EXITING THE ROOM. HER BED IS CURRENTLY AT LOWEST HEIGHT, CALL LIGHT WITHIN REACH AND PT COMFORTABLE ON BED.
--- NOTE | 2021-06-26 11:00 | NUR ---
Spoke with Dr. Haley. UPdated pt wants to leave tomorrow, he has already spoken with the family. I will scheduled transport today as they are frequently full on the day of transport. Called the WC van, they have 1 opening at 10:00 or an opening after 4 pm. Scheduled for [address] pm[address]tified family and Dr. Haley. Gave daughter the form to order DME from [facility]. Let her know I will fax it for her if needed. She will have the wc here tomorrow for transport. She and pt deny other needs.
[2021-06-26] MEDS ORDERED: HYDROMORPHONE HC2 MG PO (11:37)
[2021-06-26] MEDS ORDERED: ACETAMINOPHEN500 MG PO (11:38)
[2021-06-26] MEDS ORDERED: LIDOCAINE1 EACH TD (11:39)
--- NOTE | 2021-06-26 11:52 | NUR ---
WENT IN TO CHECK ON PT. SHE DIDN'T NEED ANYTHING AND WAS READING HER BOOK. LUNCH SERVED AND SHE JUST GOT VALLEJO AND A CARD. SAFETY MEASURES STILL IN PLACE.
--- NOTE | 2021-06-26 12:02 | NUR ---
PT CALLED FOR HELP. NEEDED ASSITANCE WITH TRANSFERRING ONTO BEDSIDE COMMODE. SHE HAD TWO-PERSON ASSIST AND WAS LEFT ON COMMODE SHE NEEDED TIME TO TRY AND VOID/PASS BM. HER DAUGHTER WITH HER IN ROOM AND THEY WILL CALL IF DONE.
--- NOTE | 2021-06-26 13:59 | NUR ---
PT IN BED RESTING. VITAL SIGNS CHECKED AND CHARTED. SHE STATED THAT HER PAIN HAS DECREASED FROM 3 TO 2. AC HL FLUSHED AND IS STILL GOOD. SHE'S STILL LAYING ON BED READY FOR A NAP. BED AT ITS LOWEST AND CALL LIGHT WITHIN REACH OF HER RIGHT HAND.
--- NOTE | 2021-06-26 14:33 | NUR ---
Patient resting in bed, no distress, eyes closed, respirations even and non labored. No needs at this time. Personal supplies and call light within reach.
--- NOTE | 2021-06-26 14:53 | NUR ---
YEMI WITH RN TO GIVE PT DUE MED. HELPED WITH REPOSITIONING AND ALSO GAVE HER WARM BLANKET. SHE'S CURRENTLY ON BED WITH ALL SAFETY MEASURES IN PLACE.
--- NOTE | 2021-06-26 15:00 | NUR ---
Chart faxed to [facility] per family request.
--- NOTE | 2021-06-26 16:20 | NUR ---
Dilaudid 2mg po admin for reports of 6/10 left shoulder/arm pain. Patient assisted to bedside commode to void then back to bed. Fresh water provided.
--- NOTE | 2021-06-26 16:45 | NUR ---
STAYED IN ROOM WITH PATIENT AFTER ASSISTING RN WITH CARE (1600 VS, DUE MED, ASSIST TO COMMODE) TO DO ADDITIONAL BIOPSYCHOSOCIAL ASSESSMENT. PT AND DAUGHTER IN ROOM AND VERY COOPERATIVE WITH ANSWERING QUESTIONS AND PUTTING IN THEIR INPUT. OTHER THAN THAT, HER PAIN WAS REASSESSED SHE HAD RECEIVED HER 1500 TYLENOL DOSE, AND SHE STATED THAT HER PAIN WAS NOW AT A 3 (CONSTANT SHARP ACHE ON HER LEFT SHOULDER AND LEFT HIP AREAS). SHE'S CURRENTLY EATING HER DINNER AND HER SAFETY MEASURES ARE IN PLACE. SHE HAD AN INTAKE OF 5OO MLS CHARTED.
--- NOTE | 2021-06-26 17:28 | NUR ---
ENTERED PT ROOM TO CHECK UP ON HER. SHE IS CURRENTLY TAKING A NAP AND DAUGHTER PRESENT IN ROOM. SHE FINISHED ONLY 40% OF HER DINNER, WHICH DAUGHTER SAID WASN'T REALLY APPETIZING TO PT. OTHER THAN THAT, SHE'S RESTING WELL AND BED IS STILL IN LOWEST POSITION WITH HER CALL LIGHT NEAR HER.
--- NOTE | 2021-06-26 18:29 | NUR ---
Patient resting in bed, eyes closed, respirations even and non labored. Patient has no distress. Daughter at bedside reading. No current needs. Patient close to RN station.
--- NOTE | 2021-06-26 18:33 | NUR ---
Checked on pt and she was fast asleep on bed. Her safety measures still in place as she's resting well.
--- NOTE | 2021-06-26 19:37 | NUR ---
PT ALERT AND APPEARS COMFORTABLE. REQUESTED PUDDING. STATES SHE DIDN'T EAT MUCH DINNER. DAUGHTER AT BEDSIDE. DENIES ANY CONCERNS OR COMPLAINTS.
--- NOTE | 2021-06-26 20:46 | NUR ---
Patient vitals and I&Os are complete. Call light is in reach. Patient is in bed.
--- NOTE | 2021-06-26 22:25 | NUR ---
UP TO BSC WITH 2 PERSON ASSIST. PAIN MED OFFERED BUT DECLINED. CALL LIGHT WITHIN REACH.
--- NOTE | 2021-06-27 01:21 | NUR ---
PT ASLEEP. GENTLE SNORING NOISES NOTED.
--- NOTE | 2021-06-27 02:00 | NUR ---
UP TO BSC TO VOID WITH 2 PERSON MOD ASSIST. PAIN MED OFFERED AND ACCEPTED FOR PAIN TO L HIP. CALL LIGHT WITHIN REACH.
--- NOTE | 2021-06-27 05:17 | NUR ---
RN was in room. Call light is in reach. Vitals, I&Os are complete.
--- NOTE | 2021-06-27 07:30 | NUR ---
CHECKED IN ON PT AFTER TAKING MORNING REPORT. SHE WAS AWAKE ON BED. ASKED FOR ASSISTANCE TO BS COMMODE. SHE VOIDED 200 MLS AND WAS HELPED WITH REPOSITIONING. SHE BRUSHED HER TEETH AND WASHED HER FACE. ASKED FOR PAIN MED SO RN NOTIFIED AND IT WAS GIVEN. OTHER THAN SO, PT SAID SHE IS READY TO GO HOME TODAY AT 10 PM BUT FEARFUL ABOUT THE PROCESS SHE'S CONCERNED ABOUT THE PAIN SHE WILL ENDURE. SHE WAS REASSURED AND IS CURRENTLY AWAITING BREAKFAST. ALL SAFETY MEASURES WITHIN PLACE.
--- NOTE | 2021-06-27 07:48 | NUR ---
Patient awake sitting up in bed, no distress. Left cuff and collar in place, cms intact. Patient reports her pain is 5/10 in left arm/shoulder/hip regions. Discussed plan of care with patient to discharge home later this morning, pt understanding and receptive to plan. Dilaudid 2mg po admin for pain at this time.
[2021-06-27] MEDS ORDERED: DULCOLAX10 MG PR (08:52)
[2021-06-27] MEDS ORDERED: HEALTHYLAX17 GM PO (08:52)
[2021-06-27] MEDS ORDERED: STIMULANT LAXA1 EACH PO (08:52)
--- NOTE | 2021-06-27 09:55 | NUR ---
PT IN ROOM WITH DAUGHTER. WENT OVER DISCHARGE ED WITH PT AND DAUGHTER ALONGSIDE RN. ASSISTED TO BS COMMODE, VOIDED 300 ML. HER VS TAKEN AND CHARTED. IV TAKEN OUT. CHANGED INTO DRESS AND ON WHEELCHAIR AWAING [facility] HOME.
== END 2021-06-27 09:56 | disposition home or self-care (01) ==
LOC: ED 07:29 → MS 07:30 → ED 12:30 → MS 12:30
PROVIDERS: ADMIT Student in an Organized Health Care Education/Training Program; ATTEND Student in an Organized Health Care Education/Training Program
DX: S42.212A Unspecified displaced fracture of surgical neck of left humerus, initial encounter for closed fracture (principal); S32.592A Other specified fracture of left pubis, initial encounter for closed fracture; I10 Essential (primary) hypertension; E78.5 Hyperlipidemia, unspecified; E03.9 Hypothyroidism, unspecified; W18.30XA Fall on same level, unspecified, initial encounter; Y92.39 Other specified sports and athletic area as the place of occurrence of the external cause; Z20.822 Contact with and (suspected) exposure to COVID-19; Z88.1 Allergy status to other antibiotic agents; Z88.5 Allergy status to narcotic agent
CPT/HCPCS: 36415; 73030; 73502; 80048; 81001; 85025; 93005; 93010; 96374; 96375; 96376; 97110; 97162; 97165; 99284-25; A9270; C9803; J1170; J1650; J2405; J7030; J7121; U0003

== ENCOUNTER 2022-08-07 11:14 | Emergency (ER) | payer MEDICARE, OTHER ==
[~2022-08-07] VITALS: Ht 160 cm; Wt 54.7 kg
[~2022-08-07 11:14] MED LIST changes: +ACETAMINOPHEN500 MG PO; +CALTRATE 600 P1 EACH PO; +DULCOLAX10 MG PR; +HEALTHYLAX17 GM PO; +HYDROMORPHONE HC2 MG PO; +LIDOCAINE1 EACH TD; +ROSUVASTATIN CA10 MG PO; +STIMULANT LAXA1 EACH PO
--- NOTE | 2022-08-08 21:23 | EKG ---
[facility] [address] [place] [address] Signed Sinus rhythm with premature atrial complexes Left bundle branch block Abnormal ECG When compared with ECG of 25-JUN-2021 16:03:43, No significant change was found Confirmed by Brit Suresh MD () on 08/08/2022 9:23:38 PM Electronically Signed By: BRIT SURESH MD 08/08/222122 PATIENT NAME: AKUA BRIZUELA Electrocardiogram DATE OF : 33 PHYSICIAN: BRIT SURESH MD REPORT #: [id number] REPORT IS CONFIDENTIAL AND NOT TO BE RELEASED WITHOUT AUTHORIZATION
== END 2022-08-07 11:45 | disposition short-term general hospital (02) ==
LOC: ED 11:14
DX: I21.9 Acute myocardial infarction, unspecified (principal); I10 Essential (primary) hypertension; E03.9 Hypothyroidism, unspecified; Z88.8 Allergy status to other drugs, medicaments and biological substances; Z88.5 Allergy status to narcotic agent; Z79.899 Other long term (current) drug therapy; Z20.822 Contact with and (suspected) exposure to COVID-19
CPT/HCPCS: 36415; 71045; 80053; 83735; 84484; 85025; 85610; 87502; 93005; 93010; 96374; 99285-25; C9803; J1644; J3010; U0003

== ENCOUNTER 2023-03-16 15:18 | Observation (INO) | payer MEDICARE, OTHER ==
[~2023-03-16] VITALS: Ht 160 cm; Wt 55.6 kg
[2023-03-16 15:42] LABS: BASOPHILS 0.9 % (0-2); EOSINOPHILS 1.1 % (0-6); HEMATOCRIT 37.3 % (35.0-50.0); HEMOGLOBIN 12.8 g/dL (12.0-18.0); LYMPHOCYTES 30.9 % (24-44); MCH 33.6 (27-36); MCHC 34.3 g/dl (30-36); MCV 97.9 fl (81-99); MONOCYTES 11.2 % (0-12); NEUTROPHILS 55.9 % (39-80); PLATELET COUNT 250 K/uL (140-440); RBC 3.81 M/ul (4.3-5.7); RDW 13.5 (10.5-15.0)
[2023-03-16 16:01] LABS: ALBUMIN 3.8 g/dL (3.4-5.0); ALBUMIN/GLOBULIN RATIO 1.09 (1.1-2.4); BILIRUBIN, TOTAL 0.5 ng/dL (0.2-1.0); CALCIUM 10.5 mg/dL (8.5-10.1); CREATININE, SERUM 0.88 mg/dL (0.55-1.02); MAGNESIUM 2.2 mg/dL (1.8-2.4); PROTEIN, TOTAL 7.3 g/dL (6.4-8.2)
[2023-03-16 19:05] VITALS: BP 184/95
[2023-03-16 19:06] LABS: INFLUENZA B NAA NEGATIVE (NEGATIVE); RESPIRATORY SYNCYTIAL VIR NAA NEGATIVE (NEGATIVE)
--- NOTE | 2023-03-16 19:24 | NUR ---
REPORT RECEIVED FROM DAY SHIFT RN. PT LYING IN BED ALERT AND ORIENTED. DENIES NEEDS. REPORTS SHE IS COMFORTABLE AT THIS TIME. WHITE BOARD UPDATED. CALL LIGHT IN REACH. FAMILY AT BEDSIDE.
--- NOTE | 2023-03-16 20:30 | NUR ---
1PA/SBA USING WALKER TO THE BATHROOM AND BACK TO BED. PATIENT HAS STABLE GAIT. NO OTHER NEEDS AT THIS TIME. FAMILY IS IN THE ROOM.
--- NOTE | 2023-03-16 21:49 | NUR ---
ADMISSION ASSESSMENT COMPLETE. SCHEDULED MEDS ADMIN PER EMAR. PT DENIES PAIN OR NAUSEA. UP TO BR WITH MINIMAL SBA AND FWW TO VOID 250 ML CLEAR YELLOW URINE. GAIT UNSTEADY AT TIMES. BACK TO BED, YESICA WELL. WARM BLANKET PROVIDED. PT ORIENTED TO ROOM AND NURSE CALL LIGHT. PT DENIES QUESTIONS OR CONCERNS. CALL LIGHT IN REACH.
--- NOTE | 2023-03-16 21:53 | EKG ---
[facility] [address] [facility] [place] [address] Signed Sinus rhythm with premature atrial complexes in a pattern of bigeminy Left bundle branch block Abnormal ECG When compared with ECG of 07-AUG-2022 11:15, Bigeminy pattern is now present Confirmed by Brit Suresh MD () on 03/16/2023 9:52:57 PM Electronically Signed By: BRIT SURESH MD 03/16/232152 PATIENT NAME: AKUA BRIZUELA Electrocardiogram DATE OF : 33 PHYSICIAN: BRIT SURESH MD REPORT #: [id number] REPORT IS CONFIDENTIAL AND NOT TO BE RELEASED WITHOUT AUTHORIZATION
[2023-03-17] VITALS (7 sets, daily range): BP systolic 131–191; BP diastolic 46–77
--- NOTE | 2023-03-17 00:14 | NUR ---
PT RESTING IN BED ON LEFT SIDE WITH EYES CLOSED. RESPIRATIONS EVEN. WATER REMOVED FROM BEDSIDE FOR NPO STATUS. IVF INFUSING WNL. CALL LIGHT IN REACH.
--- NOTE | 2023-03-17 00:40 | NUR ---
PT UP TO BR WITH AUDITING CODER ASSIST. BACK TO BED, YESICA WELL. DENIES PAIN OR NAUSEA. NO FURTHER NEEDS.
--- NOTE | 2023-03-17 05:38 | NUR ---
[facility]. SEE PAPER CHARTING.
--- NOTE | 2023-03-17 05:40 | NUR ---
PT UP TO BR WITH LINK KNITTING MACHINE OPERATOR ASSIST. BACK TO BED. REPORTS CHRONIC BACK PAIN 10/10. PRN FOR PAIN ADMIN PER SLOW IV PUSH. PT BECAME NAUSEOUS WITH INFUSION. INFUSION STOPPED. PRN FOR N/V ADMIN PER EMAR. PT REPORTS FEELING BETTER. NO FURTHER NEEDS.
[2023-03-17 05:49] LABS: BASOPHILS 1.2 % (0-2); EOSINOPHILS 1.2 % (0-6); HEMOGLOBIN 12.2 g/dL (12.0-18.0); MCH 33.8 (27-36); MCV 99.5 fl (81-99); MONOCYTES 11.5 % (0-12); NEUTROPHILS 63.1 % (39-80); PLATELET COUNT 214 K/uL (140-440); RBC 3.62 M/ul (4.3-5.7); RDW 13.4 (10.5-15.0)
[2023-03-17 06:16] LABS: ALBUMIN 3.3 g/dL (3.4-5.0); ANION GAP 13.2 (7-21); BILIRUBIN, TOTAL 1.7 ng/dL (0.2-1.0); BUN/CREATININE RATIO 21.42 (6.0-28.6); CALCIUM 9.6 mg/dL (8.5-10.1); CREATININE, SERUM 0.84 mg/dL (0.55-1.02); POTASSIUM 4.2 mmol/L (3.5-5.1); PROTEIN, TOTAL 6.6 g/dL (6.4-8.2)
--- NOTE | 2023-03-17 07:10 | NUR ---
REPORT RECEIVED FROM DAVID SILVER. PT RESTING IN BED WITH EYES CLOSED. RR EVEN AND UNLABORED. RR OF 16 NOTED. NO NEEDS IDENTIFIED AT THIS TIME. CALL LIGHT IN REACH. BED ALARM ON.
--- NOTE | 2023-03-17 07:54 | NUR ---
IN TO ADMINISTER MEDICATIONS, SEE MAR. PT SITTING UP IN BED AND RESPONDS WHEN ADDRESSED. ASSESSMENT COMPLETE. LUNG SOUNDS CLEAR. BOWEL TONES ACTIVE. PT DENIES ABD TENDERNESS WITH PALPATION. HEART TONES IRREGULAR. PT REPORTS PAIN IN BACK 06/12. PT DENIES PRN PAIN MEDICATION WHEN OFFERED. IV FLUSHES WNL. PT REQUESTING TO GET UP TO BRUSH TEETH AND GO TO BATHROOM. KIERSTEN COBOS TO ASSIST PT. PT DENIES ANY OTHER NEED FROM THIS RN AT THIS TIME. CALL LIGHT IN REACH.
--- NOTE | 2023-03-17 08:40 | NUR ---
PATIENT UP TO BATHROOM, SBA FWW. PATIENT DID AM CARE AND ORAL CARE AT SINK. PATIENT THEN TO CHAIR, SBA FWW. WARM BLANKET GIVEN. CALL LIGHT IN REACH. NO FURTHER NEEDS AT THIS TIME.
--- NOTE | 2023-03-17 09:46 | NUR ---
IN TO ROUND ON PT. PT SITTING UP IN RECLINER. FAMILY IN ROOM. PT DENIES ANY NEEDS AT THIS TIME. CALL LIGHT IN REACH.
--- NOTE | 2023-03-17 10:05 | NUR ---
IN WITH DR. CARUSO. VITALS COMPLETE. DR. CARUSO TO PLACE ORDER FOR BP MEDICATION DUE TO PTs BP OF 191/77. PT SITTING UP IN RECLINER. PT DENIES ANY OTHER NEEDS AT THIS TIME. CALL LIGHT IN REACH. FAMILY IN ROOM.
--- NOTE | 2023-03-17 10:06 | NUR ---
UR NOTE MCG GALLBLADDER OR BILE DUCT INFLAMMATION OR OBSTRUCTION: OBSERVATION CARE (ISC) 03/16/23 MET ADMIT OBSERVATION CRITERIA
--- NOTE | 2023-03-17 10:17 | NUR ---
IN TO ADMINISTER MEDICATION, SEE MAR. PT TAKES PO MEDICATIONS WITH SIP OF WATER WITH NO ISSUES. PT SITTING UP IN RECLINER. PT DENIES ANY OTHER NEEDS AT THIS TIME. CALL LIGHT IN REACH. FAMILY IN ROOM.
--- NOTE | 2023-03-17 11:25 | NUR ---
PT NOT IN ROOM. PRAYED FOR SUCCESSFUL PROCEDURE AND CHURCH OF HEALTH.
--- NOTE | 2023-03-17 11:42 | NUR ---
PT OUT OF ROOM FOR SURGERY.
--- NOTE | 2023-03-17 14:29 | NUR ---
03/17/23 1429 Molly Espinoza PT TO PACU SLEEPING ORAL AIRWAY IN PLACE O2 ON VIA MASK FOGGING NOTED IN MASK, PT NEEDS JAW THRUST TO MAINTAIN AIRWAY. EPHEDRINE GIVEN BY GAS USAGE METER CLERK TO BRING UP BP.
--- NOTE | 2023-03-17 16:21 | NUR ---
IN TO ROUND ON PT. REPORT RECEIVED FROM DAVID WATSON. PT LAYING IN BED SEMI-FOWLERS. EYES CLOSED, RR EVEN AND UNLABORED. PT RESPONDS WHEN ADDRESSED.. IV FLUSHES WNL. IV FLUIDS STARTED. CPOX PLACED. ASSESSMENT COMPLETE. LUNG SOUNDS CLEAR IN RUL AND NATY. DIMINISHED IN RLL AND LLL. BOWEL TONES ACTIVE. PT REPORTS TENDERNESS WITH ABD PALPATION. 4 LAP SITE WITH STERI-STRIPS ALL SCANT AMOUNT OF DRAINAGE NOTED, OTHERWISE D/I. PT DENIES PAIN WHEN ASKED. BED ALARM ON. CALL LIGHT IN REACH. PT DENIES ANY OTHER NEEDS AT THIS TIME. SON IN ROOM.
--- NOTE | 2023-03-17 18:48 | NUR ---
IN TO ROUND ON PT. PT SITTING UP IN BED. VITALS AND I&Os COMPLETE. CASTILLO REMOVED. PT DONE WITH DINNER TRAY. PT DENIES PAIN AT THIS TIME. PT DENIES ANY OTHER NEEDS. CALL LIGHT IN REACH. BED ALARM ON. SON IN ROOM.
--- NOTE | 2023-03-17 19:43 | NUR ---
REPORT RECIEVED FROM DAY SHIFT RN. PATIENT LAYING IN BED. RESPIRATIONS EVEN AND UNLABORED. CALL LIGHT IN REACH. NO FURTHER NEEDS.
--- NOTE | 2023-03-17 20:51 | NUR ---
cpox alarming, in room to assess. pt awake and resting in bed on her phone. spo2 and hr remains wnl. pt educated on cpox machine. pt interactive and pleasant at this time, denies needs or concerns and reports feeling happy with her care. call light in reach.
--- NOTE | 2023-03-17 21:20 | NUR ---
PATIENT RESTING IN BED. VS AND I&Os OBTAINED AND RECORDED. EVENING MEDICATIONS ADMINISTERED, SEE JUL. ASSESSMENT COMPLETED. RED DRAINAGE NOTED ON X3 UPPER LAP SITES. BOWEL TONES ACTIVE. PATIENT UP TO BATHROOM WITH 1PA AND FWW. PATIENT NOT ABLE TO VOID AT THIS TIME. IS COMPLETED. SCDs IN PLACE. IV FLUSHED AND WNL. IV INFUSING PER ORDER. NO FURTHER NEEDS. CALL LIGHT IN REACH. PATIENT DENIED ANY PAIN OR NAUSEA.
--- NOTE | 2023-03-17 22:18 | NUR ---
ROUNDING ON PATIENT. PATIENT RESTING IN BED ON BACK WITH EYES CLOSED. RESPIRATIONS EVEN AND UNLABORED. CALL LIGHT IN REACH.
--- NOTE | 2023-03-17 22:29 | EKG ---
[facility] [address] [facility] [place] [address] Signed Sinus bradycardia with premature atrial complexes in a pattern of bigeminy Left bundle branch block Abnormal ECG When compared with ECG of 16-MAR-2023 15:31, No significant change was found Confirmed by Brit Suresh MD () on 03/17/2023 10:29:28 PM Electronically Signed By: BRIT SURESH MD 03/17/23 2229 PATIENT NAME: AUKA BRIZUELA Electrocardiogram DATE OF : 33 PHYSICIAN: BRIT SURESH MD REPORT #: [id number] REPORT IS CONFIDENTIAL AND NOT TO BE RELEASED WITHOUT AUTHORIZATION
--- NOTE | 2023-03-17 23:38 | NUR ---
ROUNDING ON PATIENT. PATIENT RESTING IN BED. RESPIRATIONS EVEN AND UNLABORED. CALL LIGHT IN REACH.
[2023-03-18 02:08] VITALS: BP 116/48
--- NOTE | 2023-03-18 02:10 | NUR ---
PATIENT RESTING IN BED. VS AND I&Os OBTAINED AND DOCUMENTED. PATIENT UP TO BATHROOM TO VOID 100mL OF URINE WITH 1PA AND FWW. SECOND ASSESSMENT COMPLETE. NO NEW DRAINAGE NOTED ON SERI STRIPS. BOWEL TONES ACTIVE IN ALL 4 QUADRANTS. PATIENT REPORTS NO PAIN. WARM BLANKET PROVIDED. CALL LIGHT IN REACH.
--- NOTE | 2023-03-18 04:17 | NUR ---
PATIENT RESTING IN BED ON BACK WITH EYES CLOSED. RESPIRATIONS EVEN AND UNLABORED. CALL LIGHT IN REACH.
[2023-03-18 06:18] LABS: ALBUMIN 2.7 g/dL (3.4-5.0); ALBUMIN/GLOBULIN RATIO 0.96 (1.1-2.4); ANION GAP 11.2 (7-21); BILIRUBIN, TOTAL 0.9 ng/dL (0.2-1.0); BUN/CREATININE RATIO 18.18 (6.0-28.6); CALCIUM 9.1 mg/dL (8.5-10.1); CREATININE, SERUM 1.1 mg/dL (0.55-1.02); POTASSIUM 4.2 mmol/L (3.5-5.1); PROTEIN, TOTAL 5.5 g/dL (6.4-8.2)
[2023-03-18 06:31] VITALS: BP 141/108
--- NOTE | 2023-03-18 06:33 | NUR ---
PATIENT RESTING IN BED. VS AND I&Os OBTIANED AND RECORDED. MEDICATION ADMINISTERED, SEE MAR. PATIENT UP TO CHAIR WITH 1PA AND FWW. PATIENT DENIES PAIN/NAUSEA. SON IN ROOM. PATIENT HAS NO FURTHER NEEDS. CALL LIGHT IN REACH. PATIENT DENIES THE NEED TO VOID.
--- NOTE | 2023-03-18 07:10 | NUR ---
REPORT RECEIVED FROM DAVID HENSLEY AND DAVID DUMONT. PT SITTING UP IN RECLINER VISITING WITH SON. NO NEEDS REPORTED. CALL LIGHT IN REACH.
--- NOTE | 2023-03-18 07:29 | NUR ---
PATIENT DENIES THE NEED TO VOID. BLADDER SCANNED PATIENT FOR 278 mL OF URINE. EDUCATED PATIENT ON PO INTAKE. IV FLUIDS INFUSING. ATTEMPTED TO CALL MD TO UPDATE WITH NO ANSWER. PASSED INFORMATION TO DAY SHIFT RN. DAY SHIFT RN TO UPDATE MD.
[2023-03-18 08:53] VITALS: BP 120/60
--- NOTE | 2023-03-18 09:17 | NUR ---
IN TO ADMINISTER MEDICATIONS, SEE MAR. PT SITTING UP IN RECLINER. PT TAKES PO MEDICATIONS WITH NO ISSUES. ASSESSMENT COMPLETE. LUNG SOUNDS CLEAR. BOWEL TONES ACTIVE. PT DENIES PAIN OR TENDERNESS WITH ABD PALPATION. PT DENIES PAIN AT THIS TIME. 4 LAP SITE COVERED WITH STERI-STRIPS NOTED TO HAVE SMALL AMOUNT OF DRAINAGE, OTHERWISE D/I. HEART TONES IRREGULAR. WARM BLANKET PROVIDED. PT DENIES ANY OTHER NEEDS AT THIS TIME. CALL LIGHT IN REACH. SON AND VISITOR IN ROOM.
[2023-03-18 10:07] VITALS: BP 123/49
--- NOTE | 2023-03-18 10:30 | NUR ---
PT RECEIVING MEDICAL CARE. DID NOT INTERRUPT. PRAYED FOR RELIEF FROM DISCOMFORT.
--- NOTE | 2023-03-18 10:37 | NUR ---
IN TO COMPLETE I&Os. IV NOTED TO BE LEAKING. IV REMOVED, SEE VASCULAR ACCESS. PT BLADDER SCANNED FOR 335ML. ENCOURAGED PT TO VOID. SBA WITH FWW FROM RECLINER TO RESTROOM. PT NOTED TO VOID 50ML. PT BACK IN RECLINER. POST VOID BLADDER SCAN OF 294ML NOTED. WILL NOTIFY MD. PT DENIES ANY NEEDS AT THIS TIME. CALL LIGHT IN REACH. SON IN ROOM.
--- NOTE | 2023-03-18 10:48 | NUR ---
THIS RN ATTEMPTED TO CALL DR. CARUSO. DR. CARUSO IN PROCEDURE.
--- NOTE | 2023-03-18 11:12 | NUR ---
THIS RN RECEIVED PHONE CALL FROM DR. CARUSO. UPDATED DR. CARUSO REGARDING PTs LOW URINE OUTPUT AND BLADDER SCAN. NOTIFIED DR. CARUSO THAT PTs IV WAS REMOVED. NEW ORDERS RECEIVED. PER DR. CARUSO "BOLUS PT 500ML OF FLUID PO." VERIFIED WITH READBACK.
--- NOTE | 2023-03-18 11:18 | NUR ---
IN PTs ROOM. THIS RN OBSERVED PT DRINK 500ML OF FLUID. PT SITTING UP IN RECLINER. PT DENIES ANY OTHER NEEDS AT THIS TIME. CALL LIGHT IN REACH. SON IN ROOM.
--- NOTE | 2023-03-18 12:06 | NUR ---
IN TO ROUND ON PT. PT SITTING UP IN RECLINER. PT RESPONDS WHEN ADDRESSED. ASKED PT IF PT NEEDS TO USE RESTROOM AND PT STATES "I WISH I DID." WATER PROVIDED. PT ENCOURAGED TO DRINK MORE WATER. PT VERBALIZES UNDERSTANDING. PT DENIES ANY OTHER NEEDS AT THIS TIME. CALL LIGHT IN REACH.
[2023-03-18] MEDS ORDERED: TYLENOL EXTRA500 MG PO ×2 (12:30→15:20)
--- NOTE | 2023-03-18 12:31 | NUR ---
MED REC COMPLETE
--- NOTE | 2023-03-18 12:31 | NUR ---
DR. CARUSO TO ROOM. UPDATED DR. CARUOS REGARDING PT NOT VOIDING, YET PT HAS HAD 800ML INTAKE SINCE TALKING ON THE PHONE. PER DR. CARUSO "BLADDER SCAN AND IF PT HAS 600ML THEN PT WILL NEED A CASTILLO."
--- NOTE | 2023-03-18 12:39 | NUR ---
IN TO BLADDER SCAN PT. BLADDER SCAN OF 361ML NOTED. DR. CARUSO NOTIFIED.
--- NOTE | 2023-03-18 12:50 | NUR ---
IN TO ADMINISTER MEDICATION. PT TAKES PO MEDICATION WITH NO ISSUES. PT SITTING UP IN RECLINER. LUNCH TRAY ARRIVES. PT DENIES ANY OTHER NEEDS AT THIS TIME. CALL LIGHT IN REACH. SON IN ROOM.
[2023-03-18 13:51] VITALS: BP 135/42
--- NOTE | 2023-03-18 15:10 | NUR ---
UR NOTE MCG CHOLECYSTECTOMY WITH COMMON DUCT EXPLORATION BY LAPAROSCOPY (ISC) OBSERVATION 03/17/23 MET CLINICAL INDICATIONS FOR PROCEDURE CARE DAY DAY 03/18/23 VARIANCE GL CARE DAY 2
[2023-03-18] MEDS ORDERED: IBUPROFEN400 MG PO (15:19)
[2023-03-18 15:32] VITALS: BP 126/50
--- NOTE | 2023-03-18 16:00 | NUR ---
IN TO GO OVER DC INSTRUCTIONS. PT SITTING UP IN RECLINER. VERBAL AND WRITTEN INSTRUCTIONS PROVIDED. FOLLOW UP APPOINTMENT PROVIDED. PT AND SON VERBALIZE UNDERSTANDING. QUESTIONS ANSWERED. BELONGINGS RETURNED. [address] WHEELING PT OUT TO VEHICLE.
[2023-03-19 21:02] LABS: CARCINOEMBRYONIC ANTIGEN 1.2 ng/mL (())
--- NOTE | 2023-03-20 13:56 | HP ---
[facility] [place] [facility] [address] [place] [place] [address] Signed ADMISSION DATE: 03/16/2023 REASON FOR ADMISSION: Acute calculous cholecystitis, possible common duct debris. HISTORY OF PRESENT ILLNESS: This 87-year-old white woman is fit and healthy, exercising at the [facility] routinely. Her daughter is Josephine Boone, a assistant athletic trainer at the [employer] [facility] as well. She presented to the emergency room at approximately 1:30 a.m. today with epigastric pain radiating into the posterior thorax. She had no associated nausea, vomiting, or shortness of breath. A similar episode in July resulted in her transfer to [facility] where she had an angiogram to rule out coronary artery disease and this was considered to be normal. Evaluation of Dr. Momin included lab studies and clinical examination suggestive of acute cholecystitis. A gallbladder ultrasound was performed, which showed multiple gallstones within the gallbladder and some intrahepatic and extrahepatic ductal dilatation with possible debris in the distal common bile duct. On the basis of probable calculous cholecystitis, she is admitted for further evaluation and care. Additional evaluation included chest x-ray, which was normal. The patient has had improvement of her symptoms since admission to the hospital with IV fluids, parental pain medication, IV antibiotic Ancef. PAST MEDICAL HISTORY: Notable for distant history of pyelonephritis with urinary associated sepsis and pneumonia, hypertension and hypothyroidism. She has had right shoulder operation in the past. Allergies include Percocet and Macrobid. She currently takes acetaminophen MiraLAX and occasionally other preparations for constipation. Additionally, she takes Synthroid 50 mcg p.o. daily, multivitamin, vitamin C, losartan 50 mg daily, and rosuvastatin 10 mg every two days. SOCIAL HISTORY: She is . She is accompanied by her daughter, Josephine this evening. REVIEW OF SYSTEMS: She denies any shortness of breath or chest pain. She has had no dysphagia, dysuria or hematuria. Her pain from the upper abdomen in the epigastric and right subcostal area is 18 at this time. PHYSICAL EXAMINATION: Electronically Signed By: ELINOR CARUSO MD 03/20/23 1356 PATIENT NAME: AKUA BRIZUELA HISTORY AND PHYSICAL DATE OF : 33 REPORT #: [id number] PHYSICIAN: ELINOR CARUSO MD PCP: THEO ARCE REPORT IS CONFIDENTIAL AND NOT TO BE RELEASED WITHOUT AUTHORIZATION [facility] [place] [facility] [address] [place], [place] [address] Signed GENERAL: This is a thin, pleasant, alert, oriented woman 87 years of age. She is 5 feet 3 inches and 55.6 kg with a BMI of . HEENT: Trachea is midline. She has no hoarseness. There is no carotid bruit. CHEST: Clear. HEART: Regular without murmur. ABDOMEN: Low muscle tone. She has minimal tenderness in the right upper abdomen. There is no palpable mass. I detect no ascites extremities show no clubbing, cyanosis, or edema. LABORATORY STUDIES: Show a white count of 6.5, hematocrit 37.3, platelets 250,000. Chem profile is normal. Creatinine is 0.88, glucose 117, calcium elevated at 10.5, bilirubin 0.5, AST 103, ALT 80, alkaline phosphatase 15, troponin 22.4 (normal) lipase 58. Serology shows no evidence of COVID disease or RSV. Review of the images of the ultrasound was undertaken as well as her chest x-ray. There was definitely debris within the gallbladder and apparent ductal dilatation. Chest x-ray looks normal. ASSESSMENT: The patient has acute calculous cholecystitis and may have choledocholithiasis or debris within the common bile duct. I explained the pathophysiology of this problem to the patient and her daughter who attends to her. I would recommend consideration for cholecystectomy preferred by laparoscopic approach with possible common duct exploration as necessary. The risk of bleeding, infection, bile duct injury, need for open procedure, need for other indicated procedures and of course, the possibility of needing open examination and open common bile duct exploration were all reviewed in detail. She understands and agrees to proceed. We will plan to do this tomorrow most likely. She was given fluids tonight, IV antibiotics, parenteral pain medication as needed, and so on. MD PADMINI Hood/GAELL /[id number] cc: Dr. Momin Electronically Signed By: ELINOR CARUSO MD 03/20/23 1356 PATIENT NAME: AKUA BRIZUELA HISTORY AND PHYSICAL DATE OF : 33 REPORT #: [id number] PHYSICIAN: ELINOR CARUSO MD PCP: THEO ARCE REPORT IS CONFIDENTIAL AND NOT TO BE RELEASED WITHOUT AUTHORIZATION [facility] [address] [place] [id number] Signed Copies: ~ Electronically Signed By: ELINOR CARUSO MD 03/20/23 1356 PATIENT NAME: AKUA BRIZUELA HISTORY AND PHYSICAL DATE OF : 33 REPORT #: [id number] PHYSICIAN: ELINOR CARUSO MD PCP: THEO ARCE REPORT IS CONFIDENTIAL AND NOT TO BE RELEASED WITHOUT AUTHORIZATION
--- NOTE | 2023-03-20 13:56 | DS ---
[facility] [address] [place], [place] [address] Signed ADMISSION DATE: 03/16/2023 DISCHARGE DATE: 03/18/2023 REASON FOR ADMISSION: This 87-year-old white woman presented to the emergency room with severe right upper abdominal pain. Evaluation included a gallbladder ultrasound confirming gallstones within the gallbladder. She was seen by Dr. Momin. The patient had a similar episode in January, for which she was transferred to [facility] in [place] for evaluation for possible cardiac disease. Evaluation included an angiogram and other interventions that were normal. She is admitted at this time for acute calculous cholecystitis. PERTINENT PHYSICAL EXAMINATION: GENERAL: Showed a thin, pleasant, alert white woman, who did not look systemically toxic. NECK: Trachea is midline. CHEST: Clear. HEART: Regular without murmur. ABDOMEN: With low muscle tone. There is minimal tenderness in right upper abdomen. There is no palpable mass. There is no ascites. EXTREMITIES: Showed no clubbing, cyanosis, or edema. LABORATORY STUDIES: Showed white count of 6.5, hematocrit 37.3, and platelets 250,000. Chem profile normal. Creatinine 0.88, calcium somewhat elevated at 10.5, bilirubin 0.5, AST 103, ALT 80, alkaline phosphatase 15. Troponin 22.4 (normal lipase 58). IMAGING DATA: Ultrasound showed some debris within the gallbladder and apparent ductal dilatation including intrahepatic ductal dilatation. HOSPITAL COURSE: The patient was treated for acute calculous cholecystitis and possible choledocholithiasis. IV antibiotics were administered, parental pain medication, IV fluid resuscitation. On March 17, 2023, she underwent laparoscopic evaluation. She was found to have a markedly inflamed and distended gallbladder. Decompression revealed only a small amount of bile. Her liver was normal as was the periportal area. She had a very floppy gallbladder with the gallbladder suspended from essentially mesentery related to the Electronically Signed By: ELINOR CARUSO MD 03/20/23 1356 PATIENT NAME: AKUA BRIZUELA DISCHARGE SUMMARY DATE OF : 33 REPORT #: [id number] PHYSICIAN: ELINOR CARUSO MD PCP: THEO ARCE REPORT IS CONFIDENTIAL AND NOT TO BE RELEASED WITHOUT AUTHORIZATION [facility] [address] [place], [place] [address] Signed liver. Intraoperative cholangiography was undertaken and finding showed a dilated common bile duct and intrahepatic duct and no flow of contrast into the duodenum with a bird beak appearance in the ampullary area. On that basis, she underwent transcystic duct laparoscopic common duct exploration with dilation of the ampulla, antegrade flushing and completion cholangiogram, which showed no sign of filling defect or impediment to flow. Attempts were made at transcystic choledochoscopy, but only the cystic duct could be visualized as the junction between the two structures (cystic duct and common bile duct) were unfavorable to passage of the scope. 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 This may possibly be only an adenomatous change without invasion, but I doubt it. Inspection of the liver showed no evidence of metastatic disease. The periportal area showed no sign of adenopathy and she certainly had no sign of ascites. Her postoperative course was quite unremarkable. She was feeling quite a bit better. Not mentioned previously, her second day of hospitalization showed elevation of her liver enzymes to be quite markedly include an ALT of 1947, AST of 1935. Her bilirubin was initially 1.7, subsequently day after operation 0.9. Her liver enzymes are improved on first postoperative day. The patient has a slight amount of delay of return of urinary function, though she did have a Veras catheter placed during the course of her operation. She is able to urinate without problem at the time of discharge. FOLLOW-UP PLANS: She will see me back in the office in 2-4 weeks. We will await the pathology report to affirm or refute the concept of malignancy of the gallbladder itself. Clinically, the lesion would appear to be restricted to the mucosa, but microscopic examination is still pending of course. DISCHARGE MEDICATIONS: 1. Tylenol 500 mg 1-2 p.o. q.6 hours p.r.n. pain. 2. Ibuprofen 400 mg p.o. q.6 hours as needed for pain. 3. She will resume her usual medication of Synthroid 50 mcg p.o. daily. 4. Vitamin D2 2000 units two tablets daily. 5. Multivitamin one p.o. daily. 6. Vitamin C 500 mg p.o. daily. 7. Losartan 50 mg p.o. daily. 8. Rosuvastatin 10 mg p.o. q.2 days. 9. MiraLAX as needed for constipation. Of special note, the patient did have some bradycardia prior to the operation and does have right bundle branch block. She had no adverse findings during the course of her anesthetic for operation, has had no further bradycardic episodes, though maintains a Electronically Signed By: ELINOR CARUSO MD 03/20/23 1356 PATIENT NAME: AKUA BRIZUELA DISCHARGE SUMMARY DATE OF : 33 REPORT #: [id number] PHYSICIAN: ELINOR CARUSO MD PCP: THEO ARCE REPORT IS CONFIDENTIAL AND NOT TO BE RELEASED WITHOUT AUTHORIZATION [facility] [address] [place], [place] [address] Signed heart rate in the high 50s to low 60s generally. DISCHARGE DIAGNOSES: 1. Acute calculous cholecystitis and common duct exploration, status post laparoscopic cholecystectomy with intraoperative cholangiogram and laparoscopic common bile duct exploration and surgeon-directed fluoroscopy. 2. Incidental finding of villous neoplasm of the gallbladder incorporating 3/4 of the gallbladder itself. Final pathology pending as to malignancy versus preinvasive adenoma. 3. Hypertension. 4. Hypothyroidism. 5. Right bundle branch block. MD PADMINI Hood/FARZANA /[id number] cc: MAE Bess Copies: THEO ARCE ~ Electronically Signed By: ELINOR CARUSO MD 03/20/23 1356 PATIENT NAME: AKUA BRIZUELA DISCHARGE SUMMARY DATE OF : 33 REPORT #: [id number] PHYSICIAN: ELINOR CARUSO MD PCP: THEO ARCE REPORT IS CONFIDENTIAL AND NOT TO BE RELEASED WITHOUT AUTHORIZATION
--- NOTE | 2023-03-20 13:56 | OR ---
[facility] [address] [place], [place] [address] Signed DATE OF OPERATION: 03/17/2023 SURGEON: Elinor Caruso MD PREOPERATIVE DIAGNOSES: Acute calculus cholecystitis with elevated liver enzymes and dilated common bile duct and presumed common duct debris. POSTOPERATIVE DIAGNOSES: 1. Acute calculus cholecystitis with elevated liver enzymes and dilated common bile duct and presumed common duct debris. 2. Obstruction of ampulla (complete). 3. 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 Incidental finding with multiple black multifaceted gallstones. PROCEDURES: 1. Laparoscopic cholecystectomy with laparoscopic common bile duct exploration (transcystic duct approach). 2. Balloon dilation and flushing and clearance of duct with normal completion cholangiogram. 3. Flexible choledochoscopy (incomplete). ANESTHESIA: General endotracheal; Elinor Chakraborty CRNA and local 10 mL of 0.25% Marcaine with epinephrine. INDICATION: This 87-year-old white woman presented to the emergency room yesterday and was evaluated by Dr. Momin with severe right upper abdominal pain. The patient had a similar episode a number of months ago prompting transfer to [facility] for cardiac workup, which included an angiogram which was normal. Her symptoms on this occasion were very similar. Evaluation included a gallbladder ultrasound, which showed multiple gallstones and a dilated biliary tree as well as debris or possible stones within the common bile duct itself. Her liver enzymes initially were normal, but this morning AST and ALT are greater than 1000, bilirubin slightly elevated and alkaline phosphatase 128. Clinically, she appears improved, having undergone fluid resuscitation, parenteral pain medication and antibiotic therapy. The patient has been recommended to undergo cholecystectomy preferably by a laparoscopic approach. There is a high possibility she would need a laparoscopic common duct Electronically Signed By: ELINOR CARUSO MD 03/20/23 1356 PATIENT NAME: AKUA BRIZUELA OPERATIVE REPORT DATE OF : 33 REPORT #: [id number] PHYSICIAN: ELINOR CARUSO MD PCP: HTEO ARCE REPORT IS CONFIDENTIAL AND NOT TO BE RELEASED WITHOUT AUTHORIZATION [facility] [address] [place], [place] [address] Signed exploration or even open procedure depending on clinical findings and cholangiogram. The patient and her daughter, Josephine as well as her son, Amol understand well the risk of bleeding, infection, bile duct injury, need for open procedure and need for other indicated procedures. Understanding this, she wishes to proceed. FINDINGS: The gallbladder was quite tense and inflamed and strangely hanging on the pedicle from the gallbladder itself. The cystic duct was somewhat enlarged. Initial cholangiography showed a dilated common bile duct. No actual filling defects but complete obstruction at the distal common duct in a bird beak configuration. This prompted transcystic duct laparoscopic common duct exploration with dilation of the ampulla, flushing of the duct and completion cholangiogram showing no sign of filling defect. The liver itself appeared normal. Once the gallbladder was completely excised, palpation revealed it to be a spongy, rubbery type gallbladder and once opened showed multiple black multifaceted gallstones but also a bulky neoplasm of mucosa, taking at least three coarse 3/4 of the circumference of the gallbladder and highly consistent with gallbladder carcinoma. Clinically, the lesion appears not to have transgressed the mucosa though pathologic findings will require a microscopic assessment of course. There is no evidence of pericholecystic or adenopathy. No sign of carcinomatosis and again no sign of hepatic metastases. DESCRIPTION OF PROCEDURE: The patient was brought to the operating room, given a general endotracheal anesthetic. A Veras catheter was placed. The abdomen was prepared with a chlorhexidine solution and draped sterilely. Preoperative antibiotic Ancef had been given. The infraumbilical incision was made and using an open Calvin cannula technique pneumoperitoneum achieved to a level of 14 mmHg of carbon dioxide gas. Intra-abdominal inspection showed a senescent liver consistent with age of 87 years. There was no sign of carcinomatosis or ascites. The gallbladder was impressively floppy (as was her abdominal wall). Three additional trocars were placed in the usual configuration in the subxiphoid, right midclavicular, and right anterior axillary line. The gallbladder was tense and markedly inflamed, was elevated and had adhesions to its undersurface. Strangely it was very floppy and mobile and could not be easily grasp for elevation on the basis of her body habitus. On that basis, a decompression of the gallbladder was undertaken with a needle trocar device. This delivered only a small amount of light green bile. As it was ineffective in decompressing it much, it was considered probable that the gallbladder was quite full of stones. The gallbladder was elevated cephalad and retracted laterally and using blunt and electrocautery dissection, the triangle of Calot was dissected free. Ultimately noted was a relatively wide cystic duct. Cystic arterial branches were noted as well. The clip was applied across the gallbladder cystic duct junction and a transverse Electronically Signed By: ELINOR CARUSO MD 03/20/23 1356 PATIENT NAME: AKUA BRIZUELA OPERATIVE REPORT DATE OF : 33 REPORT #: [id number] PHYSICIAN: ELINOR CARUSO MD PCP: THEO ARCE REPORT IS CONFIDENTIAL AND NOT TO BE RELEASED WITHOUT AUTHORIZATION [facility] [address] [place], [place] [address] Signed choledochotomy made at the cystic duct. Egress of clear bile was noted. There is no stone or stone debris. Using the Gay type catheter, intraoperative cholangiography was undertaken showing free flow of contrast into the biliary tree, but a dilated common bile duct to be sure. Passage distally did not enter into the duodenum, but instead came to a bird beak obstructive appearance. There was no meniscus. Retrograde filling showed dilated proximal biliary tree as well. Uncertain as to the cause of the obstruction, transcystic duct exploration was deemed advisable. A taut trocar was placed in alignment with the cystic duct under direct visualization. The flexible tipped wire was passed into the cystic duct and into the duodenum. Under fluoroscopic control, the wire was manipulated across the ampulla fully and into the duodenum. An ERCP balloon catheter was then passed over the wire under direct visualization with fluoroscopy. The radiopaque markers were aligned directly over the ampulla. The ampulla was dilated under fluoroscopic control with contrast in the balloon dilating it significantly and safely. The catheter was then withdrawn under direct visualization and dilation of the cystic duct and cystic duct common duct junction undertaken as well. The balloon assembly and wire was then removed and the Gay type cholangiocatheter system reapplied. Irrigation was undertaken with saline and repeat cholangiogram was undertaken. This showed markedly beneficial antegrade flow through the ampulla with no sign of filling defect proximally or distally. Given the uncertainty as to clearance of the duct entirely, flexible choledochoscopy was deemed advisable if possible. Appropriate equipment was obtained and a flexible ureteral nephroscope was passed through the taut catheter with all due care insinuated into the cystic duct and manipulated distalward. Despite efforts to do so, passage through the cystic duct common duct junction was not forthcoming. Given the floppy nature of her antonieta hepatis generally, further efforts at passing the scope were deemed inadvisable and hazardous, particularly since completion cholangiogram was favorable anyway. On that basis, further attempts at additional choledochoscopy were abandoned. The scope was withdrawn and removed, the cystic duct was triply clipped and divided. The gallbladder was then dissected free in a retrograde fashion using electrocautery. The gallbladder is placed in an endobag and extracted through the infraumbilical port site. Palpation of the gallbladder showed it to be a rubbery bulky gallbladder quite unlike the most. It was opened on the back table by the circulating nurse and found to have a villous appearing neoplasm taking up at least 3/4 of the space of the gallbladder surface. 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 The scope was then reintroduced and irrigation undertaken of subhepatic space showing no sign of bile leak, bleeding or other problems. The clips appeared to be secured to the cystic duct. Careful inspection for periportal Electronically Signed By: ELINOR CARUSO MD 03/20/23 1356 PATIENT NAME: AKUA BRIZUELA OPERATIVE REPORT DATE OF : 33 REPORT #: [id number] PHYSICIAN: ELINOR CARUSO MD PCP: THEO ARCE REPORT IS CONFIDENTIAL AND NOT TO BE RELEASED WITHOUT AUTHORIZATION [facility] [address] [place] [id number] Signed adenopathy was undertaken. There were no such lymph nodes. Given the patient's thin body habitus, evaluation of the periportal lymph nodes near the common hepatic artery were undertaken again showing no sign of adenopathy. Careful inspection of the undersurface and the entire liver surface as well showed no sign of metastatic disease. Irrigation fluid was suctioned free and Kike was applied to the subhepatic space so as to provide definitive hemostasis. The trocars were removed under direct visualization showing no sign of bleeding. The infraumbilical fascial incision was reapproximated with interrupted 0 Vicryl suture as was the epigastric port given her thin body habitus. 10 mL of 0.25% Marcaine with epinephrine was injected locally and the skin closed with interrupted 3-0 Vicryl. Steri-Strips were applied. She was ultimately extubated and transferred to recovery room in good condition having suffered no complication. Sponge, needle, and instrument counts were reported as correct x3 MD PADMINI Hood/FARZANA /[id number] cc: MAE Mauro Dr. Copies: THEO ARCE ~ Electronically Signed By: ELINOR CARUSO MD 03/20/23 1356 PATIENT NAME: AKUA BRIZUELA OPERATIVE REPORT DATE OF : 33 REPORT #: [id number] PHYSICIAN: ELINOR CARUSO MD PCP: THEO ARCE REPORT IS CONFIDENTIAL AND NOT TO BE RELEASED WITHOUT AUTHORIZATION
--- NOTE | 2023-03-24 11:18 | PATH ---
[facility] [address] [place], [place] [address] Signed SPECIMEN(S): A GALLBLADDER SPECIMEN SOURCE: A. GALLBLADDER CLINICAL HISTORY: Epigastric pain; cholecystitis. 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 FINAL PATHOLOGIC DIAGNOSIS: Gallbladder, cholecystectomy: - Invasive, well-differentiated adenocarcinoma. - See synoptic report. GALLBLADDER Applies To: A SPECIMEN Procedure: Simple cholecystectomy TUMOR Tumor Site: Body of gallbladder. Histologic Type: Adenocarcinoma, not otherwise specified (NOS) Histologic Grade: G1, well differentiated Tumor Size: Greatest Dimension (Centimeters) 7.7 cm Tumor Extent: Focally invades through muscular layer into perimuscular connective tissue on peritoneal side. See comment. Lymphovascular Invasion: Not identified MARGINS Margin Status for Invasive Carcinoma: All margins negative for invasive carcinoma Distance from Invasive Carcinoma to Cystic Duct Margin: 5.7 cm. Margin Status for Intraepithelial Neoplasia: All margins negative for high-grade intraepithelial neoplasia REGIONAL LYMPH NODES Regional Lymph Node Status: One lymph node present, negative for tumor involvement (0/1). PATHOLOGIC STAGE CLASSIFICATION (pTNM, AJCC 8th Edition) Reporting of pT, pN, and (when applicable) pM categories is based on information available to the pathologist at the time the report is issued. As per the AJCC (Chapter 1, 8th Ed.) it is the managing physician's responsibility to establish the final pathologic stage based upon all pertinent information, including but potentially not limited to this pathology report. PATIENT NAME: AKUA BRIZUELA JAKOB PATHOLOGY DATE OF : 33 REPORT #: [id number] PHYSICIAN: IRWIN SANCHEZ PCP: THEO ARCE REPORT IS CONFIDENTIAL AND NOT TO BE RELEASED WITHOUT AUTHORIZATION [facility] [address] [place], [place] [address] Signed pT Category: pT2a pN Category: pN0 not assigned (no nodes submitted or found) ADDITIONAL FINDINGS Additional Findings: Cholelithiasis, Chronic cholecystitis COMMENT: The hepatic side of the gallbladder was inked at the time of gross dissection, and the invasive tumor does not appear to extend into the perimuscular connective tissue on the inked side, hence the AJCC stage of pT2a. Clinical correlation with exact location is recommended. 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 AMB MICROSCOPIC EXAMINATION: Histologic sections of all submitted blocks are examined by light microscopy. These findings, together with the gross examination, support the pathologic diagnosis. GROSS DESCRIPTION: The specimen, labeled and designated "Jayde, gallbladder," is received in formalin and consists of Specimen: Previously opened gallbladder. Dimensions: 10.5 x 3.3 cm. Serosa: Violaceous, focally congested. Cystic Duct: Inked, unobstructed. Calculi: Several black gallstones within the container that range in size from 0.3 to 0.9 cm in greatest dimension. Mucosa: [place]-boone, velvety. Wall thickness: 1.8 cm. Lymph node: One possible pericystic lymph node that measures 0.7 cm in greatest dimension is identified. Additional: The mucosal surface shows a lesion that measure 7.0 x 7.7 x 1.4 cm. The surface of the lesion is polypoid and friable. The lesion is 5.7 cm from cystic duct resection margin. Sectioning through the gallbladder wall reveals pink-boone homogenous tissue under the friable mucosa. The serosal surface is disrupted with the previously opening and loose. The lesion measures 0.4 cm from serosal surface. The hepatic surface is inked. The lesion is 1.2 cm from hepatic surface.. Outside Solar Sales Consultant sections are submitted PATIENT NAME: AKUA BRIZUELA PATHOLOGY DATE OF : 33 REPORT #: [id number] PHYSICIAN: IRWIN SANCHEZ PCP: THEO ARCE REPORT IS CONFIDENTIAL AND NOT TO BE RELEASED WITHOUT AUTHORIZATION [facility] [address] [place], [place] [address] Signed Cassette Summary: (A1) cystic duct margin, inked, shaved, mucosa to cystic duct margin, longitudinal section, random section of gallbladder wall (A2) lesion, aircraft sales representative section (A3) lesion to hepatic resection margin, possible lymph node, bisected, entirely submitted (A4) lesion to serosal surface, aircraft sales representative section (A5-A6) lesion to uninvolved mucosa, aircraft sales representative sections (A7) one additional section of lesion JS (under the direct supervision of a pathologist) The Gross Description was prepared using a voice recognition system. The report was reviewed for accuracy; however, sound-alike word errors, addition and/or deletions may occur. If there is any question about this report, please contact Client Services. ADDITIONAL NOTES: Immunohistochemical and/or in situ hybridization studies if performed in this case included appropriate positive controls that reacted as expected. This test was developed and its performance characteristics determined by [facility]. It has not been cleared or approved by the U.S. Food and Drug Administration. The FDA has determined that such clearance or approval is not necessary. This test is used for clinical purposes. It should not be regarded as investigational or for research. [facility] is certified under the Clinical Laboratory Improvement Amendments of 1988 (CLIA) as qualified to perform high complexity clinical laboratory testing. PERFORMING LABORATORY: Technical component was performed by [facility], [address] [place] [address] (CLIA# [id number]). Professional interpretation was performed by [facility] [address] [facility] [id number] Diagnostician: Josephine Park MD Pathologist Electronically Signed 03/24/2023 Copies: PATIENT NAME: AKUA BRIZUELA PATHOLOGY DATE OF : 33 REPORT #: [id number] PHYSICIAN: IRWIN SANCHEZ PCP: THEO ARCE REPORT IS CONFIDENTIAL AND NOT TO BE RELEASED WITHOUT AUTHORIZATION [facility] [address] [place] [address] [place], [place] [address] Signed ~ PATIENT NAME: AKUA BRIZUELA PATHOLOGY DATE OF : 33 REPORT #: [id number] PHYSICIAN: IRWIN PATHOLOGY PCP: THEO ARCE REPORT IS CONFIDENTIAL AND NOT TO BE RELEASED WITHOUT AUTHORIZATION
== END 2023-03-18 16:09 | disposition home or self-care (01) ==
LOC: ED 15:18 → MS 15:20
PROVIDERS: Emergency Medicine; ADMIT Surgery; ATTEND Surgery
PROC: 0FT44ZZ Resection of Gallbladder, Percutaneous Endoscopic Approach (ICD-10-PCS; principal; 2023-03-16)
PROC: 0F794ZZ Dilation of Common Bile Duct, Percutaneous Endoscopic Approach (ICD-10-PCS; 2023-03-16)
DX: C23 Malignant neoplasm of gallbladder (principal); K80.00 Calculus of gallbladder with acute cholecystitis without obstruction; K83.8 Other specified diseases of biliary tract; I10 Essential (primary) hypertension; E03.9 Hypothyroidism, unspecified; Z20.822 Contact with and (suspected) exposure to COVID-19
CPT/HCPCS: 00790; 36415; 51798; 71045; 74300; 76705; 80053; 82378; 83690; 83735; 84484; 85025; 87502; 88304; 93005; 93010; 96372; 96374; 96375; 96376; 99285-25; A9270; C1769; C1894; C9803; G0378; J0131; J0330; J0360; J0461; J0690; J1100; J1160; J1644; J1720; J1885; J2250; J2270; J2405; J2704; J2765; J3010; J3490; J7121; Q9967; U0002

== ENCOUNTER 2023-12-23 18:20 | Emergency (ER) | payer MEDICARE, OTHER ==
[~2023-12-23] VITALS: Ht 160 cm; Wt 54.8 kg
[~2023-12-23 18:20] MED LIST changes: +IBUPROFEN400 MG PO; +TYLENOL EXTRA500 MG PO
[2023-12-23] MEDS ORDERED: ACETAMINOPHEN 500 MG TAB PO ONE (19:15)
[2023-12-23] MEDS ORDERED: KETOROLAC TROMETHAMINE 15 MG/ML VIAL IV ONE (19:15)
[2023-12-23 19:28] LABS: EOSINOPHILS 1.4 % (0-6); HEMATOCRIT 36.6 % (35.0-50.0); HEMOGLOBIN 12.5 g/dL (12.0-18.0); LYMPHOCYTES 19.4 % (24-44); MCH 34.2 (27-36); MCHC 34.2 g/dl (30-36); MONOCYTES 9.9 % (0-12); NEUTROPHILS 68.3 % (39-80); PLATELET COUNT 239 K/uL (140-440); RBC 3.66 M/ul (4.3-5.7); RDW 13.7 (10.5-15.0)
[2023-12-23 19:42] LABS: BILIRUBIN, URINE NEGATIVE (negative); BLOOD/HGB, URINE NEGATIVE (Negative); KETONE, URINE NEGATIVE (Negative); LEUK ESTERASE, URINE NEGATIVE (negative); NITRITE, URINE NEGATIVE (negative)
[2023-12-23 19:56] LABS: ALBUMIN 3.7 g/dL (3.4-5.0); ALBUMIN/GLOBULIN RATIO 1.03 (1.1-2.4); ANION GAP 15.3 (7-21); BILIRUBIN, TOTAL 0.4 ng/dL (0.2-1.0); BUN/CREATININE RATIO 33.33 (6.0-28.6); CALCIUM 10.7 mg/dL (8.5-10.1); CREATININE, SERUM 0.87 mg/dL (0.55-1.02); MAGNESIUM 2.2 mg/dL (1.8-2.4); POTASSIUM 4.3 mmol/L (3.5-5.1); PROTEIN, TOTAL 7.3 g/dL (6.4-8.2)
[2023-12-23 21:40] VITALS: BP 193/94
== END 2023-12-23 21:40 | disposition home or self-care (01) ==
LOC: ED 18:20
PROVIDERS: Internal Medicine
DX: S29.012A Strain of muscle and tendon of back wall of thorax, initial encounter (principal); I10 Essential (primary) hypertension; E03.9 Hypothyroidism, unspecified; X58.XXXA Exposure to other specified factors, initial encounter; Z79.899 Other long term (current) drug therapy; Z88.5 Allergy status to narcotic agent; Z88.8 Allergy status to other drugs, medicaments and biological substances
CPT/HCPCS: 36415; 71045; 80053; 81003; 83735; 85025; 96374; 99283-25; A9270; J1885

== ENCOUNTER 2024-02-02 03:13 | Emergency (ER) | payer MEDICARE, OTHER ==
[~2024-02-02] VITALS: Ht 157.5 cm; Wt 56.6 kg
--- OUTSIDE RECORDS SUMMARY | 2024-02-02 03:20 | XMS ---
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 Lila has no Care Guidelines for this patient. Elizabeth VISIT COUNT (12 MO.) 4 [facility] [place] TOTAL 4 NOTE: Visits indicate total known visits. ED/C VISIT TRACKING (12 MO.) 02/02/2024 03:14 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 therapy - Weakness 12/23/2023 18:21 [facility] [place] TYPE: Emergency COMPLAINT: - BACK PAIN DIAGNOSES: - Allergy status to narcotic agent - Allergy status to other drugs, medicaments and biological substances - Essential (primary) hypertension - Exposure to other specified factors, initial encounter - Hypothyroidism, unspecified - Low back pain, unspecified - Other mcc (current) drug therapy - Strain of muscle and tendon of back wall of thorax, initial encounter 03/16/2023 15:19 [facility] [place] TYPE: Emergency COMPLAINT: - ABDOMINAL PAIN INPATIENT VISIT TRACKING (12 MO.) 03/16/2023 15:20 [facility] [place] TYPE: Observation COMPLAINT: - CHOLECYSTITIS DIAGNOSES: - Calculus of gallbladder with acute cholecystitis without obstruction - Contact with and (suspected) exposure to COVID-19 - Essential (primary) hypertension - Hypothyroidism, unspecified - Malignant neoplasm of gallbladder - Other specified diseases of biliary tract [email or web address]
[2024-02-02] MEDS ORDERED: KETOROLAC TROMETHAMINE 15 MG/ML VIAL IV ONE (03:30)
[2024-02-02 03:44] LABS: BASOPHILS 1.1 % (0-2); EOSINOPHILS 2.5 % (0-6); HEMATOCRIT 36.4 % (35.0-50.0); HEMOGLOBIN 12.6 g/dL (12.0-18.0); LYMPHOCYTES 24.1 % (24-44); MCH 34.6 (27-36); MCHC 34.5 g/dl (30-36); MCV 100.3 fl (81-99); MONOCYTES 9.9 % (0-12); NEUTROPHILS 62.4 % (39-80); PLATELET COUNT 228 K/uL (140-440); RBC 3.63 M/ul (4.3-5.7); RDW 13.5 (10.5-15.0)
[2024-02-02] MEDS ORDERED: ACETAMINOPHEN 500 MG TAB PO ONE (03:45)
[2024-02-02 03:58] LABS: ALBUMIN 3.9 g/dL (3.4-5.0); ALBUMIN/GLOBULIN RATIO 1.11 (1.1-2.4); ANION GAP 12.4 (7-21); BILIRUBIN, TOTAL 0.4 ng/dL (0.2-1.0); BUN/CREATININE RATIO 26.08 (6.0-28.6); CALCIUM 10.6 mg/dL (8.5-10.1); CREATININE, SERUM 0.92 mg/dL (0.55-1.02); POTASSIUM 4.4 mmol/L (3.5-5.1); PROTEIN, TOTAL 7.4 g/dL (6.4-8.2)
[2024-02-02 04:35] LABS: BILIRUBIN, URINE NEGATIVE (negative); BLOOD/HGB, URINE NEGATIVE (Negative); KETONE, URINE NEGATIVE (Negative); LEUK ESTERASE, URINE NEGATIVE (negative); NITRITE, URINE NEGATIVE (negative)
[2024-02-02 04:53] VITALS: BP 185/82
== END 2024-02-02 04:55 | disposition home or self-care (01) ==
LOC: ED 03:13
PROVIDERS: Internal Medicine
DX: S39.012A Strain of muscle, fascia and tendon of lower back, initial encounter (principal); X58.XXXA Exposure to other specified factors, initial encounter; I10 Essential (primary) hypertension; E03.9 Hypothyroidism, unspecified; Z79.899 Other long term (current) drug therapy; Z79.890 Hormone replacement therapy; Z88.8 Allergy status to other drugs, medicaments and biological substances
CPT/HCPCS: 36415; 80053; 81003; 85025; 96374; 99283-25; A9270; J1885